=== PATIENT | male | born 1960 | race Caucasian/White ===

== ENCOUNTER 2016-09-12 12:08 | Inpatient (IN) | payer MEDICARE ==
[~2016-09-12] VITALS: Ht 167.6 cm; Wt 55.8 kg
[2016-09-12] VITALS (14 sets, daily range): BP systolic 138–196; BP diastolic 75–109; BMI 19.9
[2016-09-12 12:55] LABS: BASOPHILS 0.4 % (0.0-2.0); EOSINOPHILS 0.4 % (0-7); HEMATOCRIT 23.6 % (42.0-54.0); IMMATURE GRANULOCYTES 0.3 % (0-5); LYMPHOCYTES 18.8 % (15-50); MCH 27.4 pg (26.0-34.0); MCHC 30.1 g/dL (31.0-37.0); MCV 91.1 fL (80.0-100.0); MEAN PLATELET VOLUME 8.6 fL (7.4-10.4); MONOCYTES 15.8 % (2-11); NEUTROPHILS 64.3 % (40-80); RBC 2.59 10x6/uL (4.20-6.10); WBC 6.9 10x3/uL (4.8-10.8)
[2016-09-12 13:04] LABS: HEMOGLOBIN 7.1 g/dL (13.5-17.5); PLATELET COUNT 371 10x3/uL (130-400)
[2016-09-12 13:16] LABS: ALBUMIN 3.7 g/dL (3.4-5.0); ALKALINE PHOSPHATASE 64 U/L (46-116); ALT (SGPT) 17 U/L (10-68); BILIRUBIN - TOTAL 0.18 mg/dL (0.2-1.3); CALC OSMOLALITY 265 mosm/kg (275-300); CALCIUM 8.2 mg/dL (8.5-10.1); CARBON DIOXIDE 22.2 mmol/L (21.0-32.0); CHLORIDE - SERUM 99 mmol/L (98-107); CREATININE - SERUM 0.8 mg/dL (0.6-1.3); GLUCOSE 109 mg/dL (74-106); POTASSIUM - SERUM 3.4 mmol/L (3.5-5.1); PROTEIN - SERUM 8.5 g/dL (6.4-8.2); SODIUM 134 mmol/L (136-145); UREA NITROGEN 4 mg/dL (7-18); eGFR NON AFRICAN AMERICAN > 90 mL/min (90-120)
[2016-09-12 14:03] LABS: INR 1.07 (0.85-1.17); PROTIME 13.8 SECONDS (11.6-15.0)
--- NOTE | 2016-09-12 16:57 | NUR ---
PT ARRIVED TO THE FLOOR FROM ER. ALERT AND CONVERSANT. HAS GLASSES ON. ROOM AIR. NO FAMILY AT THIS TIME. PT DOES NOT KNOW WHAT MEDICATIONS HE IS ON. SAYS HIS SISTER WILL HAVE THAT INFORMATION. C/O BEING COLD.
--- NOTE | 2016-09-12 17:48 | NUR ---
HAVE ATTEMPTED TO LOCATE FAMILY THAT WAS WITH PT IN ER. WHEN HE WAS DELIVERED TO ICU, ER NURSE SAID FAMILY WOULD BE IN WAITING AREA. HAVE LOOKED IN WAITING AREA OF ICU AND IMAGING SEVERAL TIMES AND HAVE BEEN UNABLE TO LOCATE. ATTEMPTED PHONE NUMBER LISTED FOR ANNI MELENDEZ WHO THE PATIENT LIVES WITH, NO ANSWER AT THE NUMBER PROVIDED. NO ABILITY TO LEAVE MESSAGE. PT NOW OFF UNIT TO NUCLEAR MEDICINE.
[2016-09-12 18:25] LABS: APPEARANCE CLEAR (CLEAR); BILIRUBIN NEGATIVE (NEGATIVE); COLOR YELLOW (YELLOW); GLUCOSE NEGATIVE (NEGATIVE); KETONE NEGATIVE (NEGATIVE); LEUKOCYTE ESTERASE NEGATIVE (NEGATIVE); NITRITE NEGATIVE (NEGATIVE); PROTEIN NEGATIVE (NEGATIVE); UROBILINOGEN NORMAL (NORMAL)
--- NOTE | 2016-09-12 19:02 | NUR ---
PT RETURNED TO ROOM VIA WHEELCHAIR FROM NUCLEAR MEDICINE. HAVE SPOKE WITH SISTER KERRI EDWARDS [phone] AND DAUGHTER [place] [phone]. PT LIVES WITH SISTER ANNI [phone]. SON SHANNON YAÑEZ CAN BE REACHED AT [phone]
--- NOTE | 2016-09-12 19:16 | NUR ---
SCD'S PLACED ON PT. EDUCATED ON USE.
--- NOTE | 2016-09-12 19:20 | NUR ---
ASSESSMENT COMPLETED. SEE ASSESSMENT FLOWSHEET. CONSENT SIGNED FOR BLOOD TRANSFUSION. WITNESSED BY DAY SHIFT NURSEMAREK. HARD OF HEARING. ON ROOM AIR. SCATTERED PLACED OF PSORIASIS TYPE LESIONS TO ARMS, ABDOMEN AND LEGS. SCD'S ON BILATERAL LE'S. RT HAND 18G PIV SALINE LOCKED. WILL NEED ANOTHER IV FOR PROTONIX GTT. ORIENTED. ASKIGN MULTIPLE QUESITONS. WILL MONITOR.
--- NOTE | 2016-09-12 20:15 | NUR ---
PROTONIX GTT STARTED TO NEW IV STARTED TO LEFT FOREARM 20G PRESCRIBED AT 8MG/HR. POTASSIUM REPLACEMENT GIVEN PO IN CRANBERRY JUICE. SLOWLY DRINKING IT. DOES NOT LIKE THE TASTE.
[2016-09-12 20:26] LABS: HEMATOCRIT 22.4 % (42.0-54.0)
[2016-09-12 20:27] LABS: HEMOGLOBIN 6.7 g/dL (13.5-17.5)
--- NOTE | 2016-09-12 22:00 | NUR ---
ASSISTED TO STAND UP ON SIDE OF BED TO URINATE. CLEAR, LT YELLOW URINE EMPTIED FROM URINAL. BACK TO BED WITH MINIMAL ASSISTANCE.
--- NOTE | 2016-09-12 22:14 | NUR ---
PAGED DR. SAMANIEGO VIA ANSWERING SERVICE. DANIEL ORITZ APN, RETURNED PAGE. MADE AWARE OF INCREASED B/P. NEW IV PRN MEDS ORDERED FOR B/P.
--- NOTE | 2016-09-12 22:53 | NUR ---
2ND UNIT OF PRBC'S STARTED. INFORMED TO CALL WITH ANY SHORTNESS OF BREATHE, ITCHING OR NOT FEELING WELL. VERBALIZED UNDERSTANDING.
--- NOTE | 2016-09-12 23:00 | NUR ---
IV HYDRALAZINE GIVEN PRSCRIBED FOR SBP >170 MMHG. INFORMED PATIENT OF [facility].
--- NOTE | 2016-09-12 23:15 | NUR ---
SPLIT WATER IN BED FROM HIS CUP AT BEDSIDE. PARTIAL LINENS CHANGED. PULLED UP IN BED AND REPOSITIONED FOR COMFORT. REASSESSMENT COMPLETED. SEE ASSESSMENT FLOWSHEET. 2ND UNIT PF PRBC'S INFUSING. NO REACTION NOTED THUS FAR. WILL MONITOR.
[2016-09-13] VITALS (20 sets, daily range): BP systolic 128–179; BP diastolic 76–109; Ht 167.6 cm; Wt 55.8 kg
--- NOTE | 2016-09-13 01:05 | NUR ---
2ND UNIT OF PRBC'S COMPLETED. SAT UP AND STOOD ON SIDE OF BED TO ASSIST WITH URINATING. 100ML OF CLEAR, YELLOW URINE EMPTIED. WILL MONITOR.
--- NOTE | 2016-09-13 01:45 | NUR ---
LORENA SANCHEZ AT BEDSIDE TO DRAW TIMED H & H AND K LEVEL. WILL MONITOR.
[2016-09-13 02:04] LABS: HEMATOCRIT 28.9 % (42.0-54.0); HEMOGLOBIN 9.2 g/dL (13.5-17.5)
--- NOTE | 2016-09-13 03:45 | NUR ---
AWAKENED EASILY. REASSESSMENT COMPLETED. SEE ASSESSMENT FLOWSHEET. IV ATIVAN GIVEN PER SCHEDULED ORDER TO PREVENT D.T.'S. NO NEW ACUTE CHANGES NOTED. ONLY DISORIENTED TO TIME OF DAY. REORIENTED. C/O OF STINGING SOME TO RT HAND 18G WHEN MED AND SALINE PUSHED. IV SITE WNL. WILL MONITOR.
--- NOTE | 2016-09-13 05:50 | NUR ---
1/2 CUP OF ICE GIVEN FOR C/O DRY MOUTH EVEN AFTER MOUTH SWABS AND MOISTURIZER GIVEN.
[2016-09-13 06:46] LABS: BASOPHILS 0.2 % (0.0-2.0); EOSINOPHILS 0.6 % (0-7); HEMATOCRIT 28.7 % (42.0-54.0); HEMOGLOBIN 9.2 g/dL (13.5-17.5); IMMATURE GRANULOCYTES 0.4 % (0-5); LYMPHOCYTES 20.4 % (15-50); MCH 28.5 pg (26.0-34.0); MCHC 32.1 g/dL (31.0-37.0); MCV 88.9 fL (80.0-100.0); MEAN PLATELET VOLUME 9.6 fL (7.4-10.4); MONOCYTES 16.6 % (2-11); NEUTROPHILS 61.8 % (40-80); PLATELET COUNT 318 10x3/uL (130-400); RBC 3.23 10x6/uL (4.20-6.10); RDW 16.4 % (11.5-14.5); WBC 5.4 10x3/uL (4.8-10.8)
--- NOTE | 2016-09-13 06:53 | NUR ---
WARM BLANKET GIVEN PER REQUEST. ASKING TO CALL FAMILY. STATES HIS SISTER DOES ALL HIS PAPERWORK-ANNI. INFORMED WILL HAVE TO CALL AT THE NURSES' DESK DUE TO LONG DISTANCE NUMBER. WILL TRANSFER THE CALL ONCE WE REACH HER.
[2016-09-13 06:57] LABS: ALBUMIN 3.4 g/dL (3.4-5.0); ALKALINE PHOSPHATASE 62 U/L (46-116); ALT (SGPT) 14 U/L (10-68); BILIRUBIN - TOTAL 1.62 mg/dL (0.2-1.3); CALC OSMOLALITY 273 mosm/kg (275-300); CALCIUM 8.4 mg/dL (8.5-10.1); CARBON DIOXIDE 24.4 mmol/L (21.0-32.0); CHLORIDE - SERUM 103 mmol/L (98-107); CREATININE - SERUM 0.7 mg/dL (0.6-1.3); GLUCOSE 104 mg/dL (74-106); POTASSIUM - SERUM 3.7 mmol/L (3.5-5.1); PROTEIN - SERUM 7.8 g/dL (6.4-8.2); SODIUM 138 mmol/L (136-145); eGFR NON AFRICAN AMERICAN > 90 mL/min (90-120)
[2016-09-13 06:58] LABS: UREA NITROGEN 6 mg/dL (7-18)
--- NOTE | 2016-09-13 08:14 | NUR ---
UP IN BED AT THIS TIME. PT DENEIS ANY NEEDS. ALERT AND ORIENTED. NO ACUATE DISTRESS NOTED. USES URINAL FOR URINATION. REPOSITIONS SELF FREQUENTLY. WILL CONTINUE PLAN OF CARE.
--- NOTE | 2016-09-13 08:38 | NUR ---
Is the patient Alert and Oriented? Yes 0 * How many steps to enter\exit or inside your home? 4 0 * PCP DR. AYOUB IN [place] 0 * Pharmacy [facility] IN [place] 0 * Preadmission Environment Home with Family 0 * ADLs Independent 0 * Equipment None 0 * List name and contact numbers for known caregivers / representatives who currently or will assist patient after discharge: SISTER: ANNI MELENDEZ [phone] SON: TONIA YAÑEZ [phone] DIL: [place] [phone] * Community resources currently utilized None 0 * Additional services required to return to the preadmission environment? No 0 * Can the patient safely return to the preadmission environment? Yes 0 * Has this patient been hospitalized within the prior 30 days at any hospital? No 0 PATIENT IS AWAKE AND ALERT. HE STATES HE IS INDEPENDENT IN HIS ADL'S. HE STATES HE LIVES AT HOME WITH HIS SISTER, ANNI MELENDEZ. SHE WILL BE AVAILABLE TO DRIVE HIM HOME AT DISCHARGE. PATIENT'S PCP IS DR. AYOUB IN [place]. HE GETS HIS MEDS FROM [facility] IN [place]. HE DENIES USE OF ANY DME. HE DENIES EVER HAVING HOME HEALTH CARE. THERE ARE 4 STEPS TO ENTER HIS HOME. PATIENT DENIES ANY DISCHARGE NEEDS AT THIS TIME. HE PLANS TO RETURN HOME WITH HIS SISTER AT DISCHARGE.
--- NOTE | 2016-09-13 10:13 | NUR ---
SITTING UP IN BED AT THIS TIME AWAKE WATCHING TV. DENEIS ANY NEEDS. NO ACUTE DISTRESS NOTED. WILL CONTINUE PLAN OF CARE.
--- NOTE | 2016-09-13 10:37 | NUR ---
Nutrition Follow Up: Pt reported that he was feeling better and his appetite seems to be improving. He said that he likes Ensure and has been drinking it. Pt is eating 55% meal avg on a Regular [facility] Soft diet. I<O. +BM 09/11/16. Wt gain of 3# since admit. Labs noted - Glucose elevated. Meds noted including NS @ 50 ml/hr, Lantus, Dopamine, Humalog, Zofran. Pt with fair po intake at this time. Rec continue current diet. Will continue sending Ensure with meals. RD following.
--- NOTE | 2016-09-13 11:41 | NUR ---
NOTED NEW ORDERS FOR PT TO HAVE EKG AND LR PULLED FOR PT TO GO TO EGD. WILL PLACE ORDERS NOW UNDER DR IVAN ORDERED.
--- NOTE | 2016-09-13 12:14 | NUR ---
PT FAMILY IN ROOM VISITING WITH PT AT THIS TIME. NOTED THEY HAD STATED THAT THE ONLY HOME MEDS PT HAS ARE LISINOPRIL 10MG BID BUT PT HAS NOT BEEN TAKING FOR A LITTLE WHILE. THEY STATED THERE ARE NO OTHER MEDICATIONS WHICH PT TAKES. PT DENIES ANY NEEDS. NO DISTRESS NOTED. WILL CONTINUE PLAN OF CARE.
[2016-09-13] MEDS ORDERED: LISINOPRIL10 MG PO (12:22)
[2016-09-13 12:46] LABS: HEMATOCRIT 30.1 % (42.0-54.0); HEMOGLOBIN 9.6 g/dL (13.5-17.5)
--- NOTE | 2016-09-13 12:57 | NUR ---
H&H INCREASED AT 9.6/30.1. NO ACTIVE BLLEDING NOTED. NO BOWEL MOVEMENT NOTED. NO ACUTE DISTRESS NOTED. WILL CONTINUE PLAN OF CARE.
--- NOTE | 2016-09-13 13:38 | NUR ---
NOTED PT PULSE RATE TO BE RANGING FROM 118-139 AT THIS TIME IN SINUS RHYTHM. CALLED DR SAMANIEGO OFFICE TO NOTIFY, OFFICE STATED SHE IS NOT AT OFFICE. RECIEVED PHYSICIAN CELL NUMBER AT [phone]. WILL CALL DR SAMANIEGO AT THIS TIME FOR ANY NEW ORDERS.
--- NOTE | 2016-09-13 13:40 | NUR ---
SPOKE WITH DR SAMANIEGO ABOUT PT PULSE RATE, NOTED NEW ORDER TO START NORMAL SALINE AT 100ML/HOUR. WILL PLACE ORDERS NOW.
--- NOTE | 2016-09-13 13:53 | NUR ---
TRANSFERRED OFF FLOOR AT THIS TIME FOR EGD PER ORDERS VIA BED ACCOMPANIED BY HOSPITAL STAFF. NO ACUTE DISTRESS NOTED. WILL CONTINUE PLAN OF CARE.
--- NOTE | 2016-09-13 15:14 | NUR ---
RECIEVED REPORT FROM LACHO AND DR PICKETT. NOTED NORMAL EGD. NOTED NEW ORDER FOR CLEAR LIQUID DIET. PULSE RATE REMAINED AT 116 DURING PROCEDURE. NO ACUTE DISTRESS NOTED. PT SISTER AND NIECE UPDATED. DR PICKETT ALSO STATED PT IS OKAY TO BE TRANSFERRED TO FLOOR. WILL CALL DR PRIMARY PHYSICIAN, DR SANCHEZ TO SEE IF OKAY TO TRANSFER PT. WAITING AT THIS TIME TO RECIEVE PT FROM GI LAB.
--- NOTE | 2016-09-13 15:21 | NUR ---
SPOKE WITH DR SAMANIEGO AT THIS TIME. NOTED NEW ORDER FOR PT TO BE TRANSFERRED TO FLOOR. WILL PLACE ORDERS AND NOTIFY PT FAMILY AT THIS TIME.
--- NOTE | 2016-09-13 16:11 | NUR ---
NOTED PT TO GO TO ROOM 2226. WILL CALL REPORT SHORTLY.
--- NOTE | 2016-09-13 16:12 | NUR ---
NOTED PERIPHERAL IV TO LEFT FOREARM TO HAVE A LITTLE PHLEBITIS, RED IN COLOR, FLUSHES WELL. ALL IV MEDS MOVED FROM THIS ACCESS TO RIGHT HAND AND LEFT FOREARM SALINE LOCKED AT THIS TIME. WILL CONTINUE PLAN OF CARE.
--- NOTE | 2016-09-13 16:18 | NUR ---
CALLED REPORT TO RECIEVING NURSE FOR PT TO GO TO ROOM 2226. NOTED ROOM IS STILL DIRTY AT THIS TIME BUT ACCEPTING NURSE WILL NOTIFY THIS NURSE WHEN ROOM IS READY FOR PT TRANSFER. PT FAMILY NOTIFIED AT THIS TIME. NO ACUTE DISTRESS NOTED. WILL CONTINUE PLAN OF CARE.
--- NOTE | 2016-09-13 16:42 | NUR ---
NOTED ROOM FOR PT TO TRANSFER TO, 222, IS CLEAN AND READY FOR PT ARRIVAL. WILL TRANSFER PT SHORTLY.
--- NOTE | 2016-09-13 17:08 | NUR ---
TRANSFERRED TO ROOM 2226 AT THIS TIME VIA WHEELCHAIR. FAMILY IN NEW ROOM WITH PT. NO FURTHER ACTIONS.
--- NOTE | 2016-09-13 17:10 | NUR ---
PATIENT RECEIVED TO FLOOR FROM ICU VIA WHEELCHAIR. RESPIRATIONS EVEN AND UNLABORED. ORIENTED TO ROOM. SIDE RAILS UP X2. BED IN LOW POSITION. FAMILY PRESENT.
--- NOTE | 2016-09-13 17:15 | NUR ---
IV TO RIGHT HAND AND LEFT FOREARM INFILTRATED. BOTH IVs D/C WITH CATH TIPS INTACT. SITES COVERED WITH GAUZE AND BANDAID. NEW 22 GAUGE IV SITED TO LEFT FOREARM X1 ATTEMPT. FLUSHES EASY WITH BRISK BLOOD RETURN PRESENT. SECURED WITH TAPE AND TEGADERM. IVF INFUSING WITHOUT DIFFICULTY
[2016-09-13 18:25] LABS: HEMATOCRIT 30.9 % (42.0-54.0); HEMOGLOBIN 9.8 g/dL (13.5-17.5)
--- NOTE | 2016-09-13 20:00 | NUR ---
ASSESSMENT PER FLOWSHEET. IV PATENT LEFT FOREARM OF NS AT 100CC'S/HR SITE CLEAR. PROTONIX GTT INFUSING AT 10CC'S/HR. PT IS HARD OF HEARING. SR UP X2 CALL LIGHT WITHIN REACH MEDS GIVEN PER MAR.RESTING QUIETLY TALKING ON PHONE.
--- NOTE | 2016-09-13 22:27 | NUR ---
SITTING UPRIGHT IN BED EATING ICE CREAM
--- NOTE | 2016-09-14 | NUR ---
MEDS GIVEN PER MAR.
[2016-09-14 01:00] VITALS: BP 149/77
[2016-09-14 01:04] LABS: HEMATOCRIT 26.1 % (42.0-54.0); HEMOGLOBIN 8.4 g/dL (13.5-17.5)
--- NOTE | 2016-09-14 04:00 | NUR ---
MEDS GIVEN FL MAR.
[2016-09-14 05:00] VITALS: BP 180/93
--- NOTE | 2016-09-14 06:00 | NUR ---
INC URINE ON THE FLOOR COMPLETE BATH WITH LINENS CHANGED.
[2016-09-14 06:13] LABS: BASOPHILS 0.2 % (0.0-2.0); EOSINOPHILS 2.2 % (0-7); HEMOGLOBIN 8.6 g/dL (13.5-17.5); IMMATURE GRANULOCYTES 0.2 % (0-5); LYMPHOCYTES 29.8 % (15-50); MCH 28.1 pg (26.0-34.0); MCHC 31.9 g/dL (31.0-37.0); MCV 88.2 fL (80.0-100.0); MEAN PLATELET VOLUME 9.7 fL (7.4-10.4); NEUTROPHILS 50.6 % (40-80); PLATELET COUNT 264 10x3/uL (130-400); RBC 3.06 10x6/uL (4.20-6.10); RDW 16.5 % (11.5-14.5); WBC 4.6 10x3/uL (4.8-10.8)
[2016-09-14 06:34] LABS: ALBUMIN 2.9 g/dL (3.4-5.0); ALKALINE PHOSPHATASE 58 U/L (46-116); ALT (SGPT) 13 U/L (10-68); CARBON DIOXIDE 22.1 mmol/L (21.0-32.0); CHLORIDE - SERUM 104 mmol/L (98-107); CREATININE - SERUM 0.7 mg/dL (0.6-1.3); GLUCOSE 94 mg/dL (74-106); PROTEIN - SERUM 7.1 g/dL (6.4-8.2); SODIUM 137 mmol/L (136-145); eGFR NON AFRICAN AMERICAN > 90 mL/min (90-120)
[2016-09-14 06:35] LABS: CALC OSMOLALITY 270 mosm/kg (275-300); POTASSIUM - SERUM 3.1 mmol/L (3.5-5.1); UREA NITROGEN 3 mg/dL (7-18)
--- NOTE | 2016-09-14 07:30 | NUR ---
AWAKE ALERT COLOR ADQ SKIN WARM AND DRY RESP EVEN AND UNLABORED AT PRESENT.IV CONT AT 100CC/HR/IVAC AT PRESENT.
[2016-09-14 08:30] VITALS: BP 161/89
--- NOTE | 2016-09-14 09:00 | NUR ---
SLEEPING QUIETLY AT PRESENT N/C AT PRESENT.
[2016-09-14] MEDS ORDERED: PROTONIX40 MG PO (10:46)
--- NOTE | 2016-09-14 10:52 | NUR ---
QUIET IN ROOM AT PRESENT DENIES ANY NEEDS AT PRESENT.
--- NOTE | 2016-09-14 11:21 | NUR ---
DR SAMANIEGO VS NEW ORDERS R/N AT PRESENT.
[2016-09-14 12:03] VITALS: BP 175/92
[2016-09-14 12:26] LABS: HEMATOCRIT 28.2 % (42.0-54.0); HEMOGLOBIN 8.9 g/dL (13.5-17.5)
--- NOTE | 2016-09-14 13:24 | NUR ---
FAMILY AT BEDSIDE WAITING TO TALK TO GI DOCTOR.
--- NOTE | 2016-09-14 15:11 | NUR ---
STILL WAITING TO GO HOME AT PRESENT DRESSED IN CLOTHES.
--- NOTE | 2016-09-14 16:00 | NUR ---
VS NEW ORDERS R/N .
[2016-09-14 16:13] VITALS: BP 166/107
--- NOTE | 2016-09-14 16:15 | NUR ---
IV DCD CATH INTACT SITE CLEAN AND DRY WITHOUT REDDNESS OR EDEMA NOTED AT PRESENT AT PRESENT.DISCHARGE INSTRUCTIONS GONE OVER WITH PT AND SISTER DEMONSTRATES UNDERSTANDING AT PRESENT .
== END 2016-09-14 16:19 | disposition home or self-care (01) | DRG 378 ==
LOC: D.ER 12:08 → D.ICU 14:15 → D.MS 09-13 17:10
PROVIDERS: Emergency Medicine; Internal Medicine Gastroenterology; ADMIT Emergency Medicine
PROC: 0DB68ZX Excision of Stomach, Via Natural or Artificial Opening Endoscopic, Diagnostic (ICD-10-PCS; principal; 2016-09-13 14:00)
DX: K92.1 Melena (principal); D62 Acute posthemorrhagic anemia; F17.203 Nicotine dependence unspecified, with withdrawal; R04.0 Epistaxis; R53.1 Weakness; E87.6 Hypokalemia; R00.0 Tachycardia, unspecified; F10.20 Alcohol dependence, uncomplicated

== ENCOUNTER 2016-09-25 14:59 | Observation (INO) | payer MEDICARE ==
[~2016-09-25] VITALS: Ht 167.6 cm; Wt 57.0 kg
[~2016-09-25 14:59] MED LIST: LISINOPRIL10 MG PO; PROTONIX40 MG PO
[2016-09-25 16:04] LABS: BASOPHILS 0.2 % (0.0-2.0); EOSINOPHILS 0.2 % (0-7); HEMATOCRIT 31.3 % (42.0-54.0); IMMATURE GRANULOCYTES 0.3 % (0-5); LYMPHOCYTES 11.8 % (15-50); MCH 28.2 pg (26.0-34.0); MCHC 31.9 g/dL (31.0-37.0); MCV 88.4 fL (80.0-100.0); MEAN PLATELET VOLUME 10.4 fL (7.4-10.4); MONOCYTES 11.1 % (2-11); NEUTROPHILS 76.4 % (40-80); PLATELET COUNT 187 10x3/uL (130-400); RBC 3.54 10x6/uL (4.20-6.10); RDW 17.5 % (11.5-14.5); WBC 6.4 10x3/uL (4.8-10.8)
[2016-09-25 16:11] LABS: ALBUMIN 3.8 g/dL (3.4-5.0); ALKALINE PHOSPHATASE 77 U/L (46-116); ALT (SGPT) 19 U/L (10-68); BILIRUBIN - TOTAL 0.47 mg/dL (0.2-1.3); CALC OSMOLALITY 269 mosm/kg (275-300); CALCIUM 8.1 mg/dL (8.5-10.1); CARBON DIOXIDE 26.1 mmol/L (21.0-32.0); CHLORIDE - SERUM 98 mmol/L (98-107); CREATININE - SERUM 0.7 mg/dL (0.6-1.3); GLUCOSE 102 mg/dL (74-106); POTASSIUM - SERUM 4.2 mmol/L (3.5-5.1); PROTEIN - SERUM 8.4 g/dL (6.4-8.2); SODIUM 136 mmol/L (136-145); UREA NITROGEN 7 mg/dL (7-18); eGFR NON AFRICAN AMERICAN > 90 mL/min (90-120)
[2016-09-25 20:49] VITALS: BP 147/103; Ht 167.6 cm; Wt 57.0 kg
--- NOTE | 2016-09-25 20:59 | NUR ---
PT ARRIVED WHEEL CHAIR, AWAKE, ALERT, ORIENTED, DENIES PAIN, DENIES ANY ACUTE NEEDS AT THIS TIME. PTS SISTER IS AT BEDSIDE. PT STATES HE HAS NOT HAS HIS LISINOPRIL IN QUITE SOME TIME, UNABLE TO RECALL WHEN LAST DOSE WAS. PT STATES HE DOES NOT HAVE A PRIMARY CARE PHYSICIAN, AND THAT HE JUST COMES HERE WHEN HE NEEDS SOMETHING. I DID PT TEACHING ABOUT HIS MEDICATIONS, HTN, LIFESTYLE CONTRIBUTORS, NECCESSARY LIFESTYLE CHANGES, AND THE NEED TO ESTABLISH WITH A PCP IMMEDIATELY. I EXPLAINED THAT NONCOMPLIANCE WITH MEDS, AND NOT FOLLOWING UP WITH A DR COULD LEAD TO SERIOUS HEALTH COMPLICATIONS. PT AND SISTER BOTH AGREED VERBALLY THAT THEY UNDERSTAND AND WILL FIND A PCP FOR PT SOON THEY CAN. WILL CONTINUE TO MONITOR CLOSELY.
[2016-09-26 03:36] VITALS: BP 151/70
--- NOTE | 2016-09-26 05:51 | NUR ---
PT LYING IN BED, AWAKE, ALERT, ORIENTED, DENIES ANY NEEDS. CONTINUE TO MONITOR CLOSELY.
[2016-09-26 06:22] VITALS: BP 142/86
[2016-09-26 07:05] LABS: HEMATOCRIT 28.8 % (42.0-54.0); HEMOGLOBIN 8.9 g/dL (13.5-17.5); MCH 27.6 pg (26.0-34.0); MCHC 30.9 g/dL (31.0-37.0); MCV 89.2 fL (80.0-100.0); PLATELET COUNT 160 10x3/uL (130-400); RBC 3.23 10x6/uL (4.20-6.10); RDW 17.8 % (11.5-14.5)
[2016-09-26 07:08] LABS: CALCIUM 8.2 mg/dL (8.5-10.1); CARBON DIOXIDE 26.8 mmol/L (21.0-32.0); CHLORIDE - SERUM 98 mmol/L (98-107); CREATININE - SERUM 0.8 mg/dL (0.6-1.3); GLUCOSE 87 mg/dL (74-106); SODIUM 133 mmol/L (136-145); eGFR NON AFRICAN AMERICAN > 90 mL/min (90-120)
[2016-09-26 07:15] LABS: WBC 3.8 10x3/uL (4.8-10.8)
[2016-09-26 07:20] LABS: CALC OSMOLALITY 261 mosm/kg (275-300); POTASSIUM - SERUM 3.3 mmol/L (3.5-5.1); UREA NITROGEN 5 mg/dL (7-18)
--- NOTE | 2016-09-26 07:34 | NUR ---
PT SITTING UP IN BED SISTER AT BEDSIDE KACIE NEEDS WILL CONTINUE TO MONITOR.
[2016-09-26 07:37] LABS: LYMPHOCYTES 42 % (15-50); MONOCYTES 17 % (2-11); NEUTROPHILS 40 % (40-80); PLATELET ESTIMATE NORMAL
[2016-09-26 09:05] VITALS: BP 159/93
[2016-09-26 12:42] VITALS: BP 152/87
--- NOTE | 2016-09-26 13:36 | NUR ---
AMBULATING IN HALLWAY REQUESTING SNACK FOOD. BROUGHT HIM FORTINO CRACKER AND PEANUT BUTTER. DENIES FURTHER NEEDS EXCEPT THAT HE WANTS TO GO HOME. ADVISE DR. DAVILA WILL BE HERE AROUND 4-5 PM
--- NOTE | 2016-09-26 13:55 | NUR ---
REFUSED SCD'S. PATIENT UP AD ABBEY
[2016-09-26 14:43] LABS: HEMATOCRIT 29.6 % (42.0-54.0); HEMOGLOBIN 9.1 g/dL (13.5-17.5)
[2016-09-26 14:58] LABS: APPEARANCE CLEAR (CLEAR); COLOR YELLOW (YELLOW); GLUCOSE NEGATIVE (NEGATIVE); KETONE NEGATIVE (NEGATIVE); LEUKOCYTE ESTERASE TRACE (NEGATIVE); NITRITE NEGATIVE (NEGATIVE); PROTEIN 1+ mg/dL (NEGATIVE); SPECIFIC GRAVITY 1.005 (1.005-1.020)
[2016-09-26 14:59] LABS: BILIRUBIN NEGATIVE (NEGATIVE); UROBILINOGEN NORMAL (NORMAL)
[2016-09-26 15:00] LABS: BACTERIA NONE SEEN /hpf (NONE SEEN); EPITHELIAL CELLS NSEEN /hpf (0-5); RED CELLS - URINE NONE SEEN /hpf (0-5); WHITE CELLS - URINE 0-5 /hpf (0-5)
[2016-09-26 15:13] LABS: % SATURATION 40 % (15-55); IRON 158 ug/dl (35-150); TOTAL IRON BIND CAPACITY 387 ug/dl (260-445); UNSAT IRON BIND CAPACITY 229 ug/dl (150-375)
[2016-09-26 16:28] VITALS: BP 148/93
[2016-09-26 18:46] LABS: HEMATOCRIT 28.4 % (42.0-54.0); HEMOGLOBIN 8.8 g/dL (13.5-17.5)
[2016-09-26 19:53] VITALS: BP 168/98
--- NOTE | 2016-09-26 23:00 | NUR ---
PT RESTING IN BED. WATCHING TV. IVF BANANA BAG INFUSING TO LEFT HAND AT 125ML/HR. NONLABORED RESPIRATIONS ON ROOM AIR. SR PER TELEMETRY. REFUSES SCDS. INITIAL ROUNDS, BP 168/99, SO ADMINISTERED. HYDRALAZINE 10MG SIVP. ALSO PROVIDED SCHEDULED LISINOPRIL. PT ASKING NURSE WHEN HIS BANANA BAG WILL BE COMPLETE. HE THINKS THAT THE DATE ON HIS IV OF 09/26/15, INDICATES THAT IT IS ONLY GOOD FOR ONE DAY, ONE BANANA BAG. INSTRUCED PT THAT BANANA BAG WILL CONTINUE UNTIL ORDERS COME FROM MD TO DISCONTINUE IT. PT IS FIXATED ON THE DATE. WILL MONITOR.
[2016-09-27 00:24] VITALS: BP 137/79
[2016-09-27 04:23] VITALS: BP 160/86
[2016-09-27 06:17] LABS: BASOPHILS 0.5 % (0.0-2.0); EOSINOPHILS 2.2 % (0-7); HEMATOCRIT 28.3 % (42.0-54.0); HEMOGLOBIN 8.8 g/dL (13.5-17.5); IMMATURE GRANULOCYTES 0.2 % (0-5); LYMPHOCYTES 33.7 % (15-50); MCH 27.6 pg (26.0-34.0); MCHC 31.1 g/dL (31.0-37.0); MCV 88.7 fL (80.0-100.0); MEAN PLATELET VOLUME 11.2 fL (7.4-10.4); MONOCYTES 20.2 % (2-11); NEUTROPHILS 43.2 % (40-80); PLATELET COUNT 152 10x3/uL (130-400); RBC 3.19 10x6/uL (4.20-6.10); WBC 4.1 10x3/uL (4.8-10.8)
[2016-09-27 06:34] LABS: ALBUMIN 3.2 g/dL (3.4-5.0); ALKALINE PHOSPHATASE 58 U/L (46-116); ALT (SGPT) 15 U/L (10-68); BILIRUBIN - TOTAL 0.35 mg/dL (0.2-1.3); CALC OSMOLALITY 266 mosm/kg (275-300); CALCIUM 8.5 mg/dL (8.5-10.1); CHLORIDE - SERUM 101 mmol/L (98-107); CREATININE - SERUM 0.6 mg/dL (0.6-1.3); GLUCOSE 95 mg/dL (74-106); POTASSIUM - SERUM 3.8 mmol/L (3.5-5.1); SODIUM 135 mmol/L (136-145); UREA NITROGEN 5 mg/dL (7-18); eGFR NON AFRICAN AMERICAN > 90 mL/min (90-120)
--- NOTE | 2016-09-27 07:27 | NUR ---
PT SITTING UP IN BED DENIES NEEDS AUDI CONT TO MONITOR.
[2016-09-27 07:32] LABS: MAGNESIUM - SERUM 1.8 mg/dL (1.8-2.4)
[2016-09-27 08:49] VITALS: BP 145/81
[2016-09-27 10:19] LABS: FOLATE (FOLIC ACID) - SERUM 11.2 ng/mL (>3.0)
[2016-09-27 12:43] VITALS: BP 145/74
--- NOTE | 2016-09-27 15:03 | NUR ---
PT WAS ORDERED TO HAVE CAROTID DOPPLER FOR SYNCOPE EPISODE PRIOR TO ADMISSION. PT VERY IMPATIENT AND DIDNT WANT TO WAIT FOR THE TEST BECAUSE HIS RIDE WAS HERE AND HE WAS READY TO GO HOME. SAID HE HAD SOMEWHERE TO BE. CALLED DANIEL APONTE SHE SAID PT COULD LEAVE SOON HE WAS FINISHED WITH THE TEST AND THAT HE DID NOT HAVE TO WAIT FOR THE RESULTS THAT THE RESULTS COULD BE FORWARDED TO DR PAYAN. (PT PCP). I CALLED ULTRASOUND SPOKE TO KRYSTEN TWICE TRYING TO SEE IF THERE WAS ANY WAY SHE COULD GET UP HERE SOONER. SHE COULDNT. KRYSTEN JUST GOT UP HERE AND DID PT CAROTID ULTRASOUND. WENT OVER PT DC PAPERWORK AND DC TELE AND PIV WITH CATHETER TIP ITNACT. ASKED PT AGAIN IF HE WOULD PLEASE STAY FOR RESULTS OF CAROTID DOPPLER HE SAID DR DAVILA TOLD HIM HE DIDNT HAVE TO AND HE ISNT "I HAVE SOMEWHERE I NEED TO BE". PT VERBALIZES UNDERSTANDING OF DC PAPERWORK. TOLD KRYSTEN FOSTER TECH THAT RESULTS NEEDED TO BE FORWARDED TO DR GARCIA PAYAN PT PCP. SHE WROTE THIS INFO DOWN. PT REFUSED A WHEELCHAIR AND WALKED OUT WITH HIS FRIEND.
--- NOTE | 2016-10-01 16:47 | EC ---
PATIENT:TNOIA MCCARTNEY DATE OF SERVICE: 09/26/16 SEX: M MEDICAL RECORD: [id number] DATE OF : 60 LOCATION:D.M2 D.213 AGE OF PATIENT: 56 ADMISSION DATE: 09/25/16 REFERRING PHYSICIAN: INTERPRETING PHYSICIAN: BLADE QUIJANO MD ECHOCARDIOGRAM REPORT ECHO CHARGES 4 ECHO COMPLETE CLINICAL DIAGNOSIS: SYNCOPE ECHOCARDIOGRAPHIC MEASUREMENTS (adult normal given) AC root (d.<3.7cm) 3.5 LV Septum d (<1.2 cm> 1.4 Valve Excursion 1.8 LV Septum (systole) 1.6 Left Atria (s.<4.0cm> 3.1 LVPW d(<1.2cm) 1.4 RV (d.<2.3cm) 3.8 LVPW (sytole) 1.7 LV diastole(<5.6CM) 4.8 MV E-F(>70mm/sec) LV systole 2.9 LVOT Diameter 1.4 MV exc.(>10mm) 2.0 Est.ejection fraction (50-75%) Pericardial Effusion N DOPPLER: LVIT A 85.0 E 92.0 LA RVSP 35 LVOT 100 AOP1/2T Asc. Ao 132 RVOT 86 RA PA 122 AV Gradient Peak 7.0 AV Mean 4.41 AV Area 2.0 MV Gradient Peak 4.82 MV Mean 1.80 MV Area COMMENTS: Physician Liaison: Renay GARCIA Fisher:Renay Rucker TAPE# PACS DATE OF SERVICE: 09/26/2016 Echocardiogram FINDINGS: 1. Left ventricular chamber size is within normal limits. Left ventricular systolic function is normal. Overall ejection fraction estimated at 55% to 60%. 2. Left atrium is within normal limits at 3.1 cm. Right atrium and right ventricle chamber sizes are mildly dilated. 3. Valvular structures have normal structure and motion. ECHOCARDIOGRAM REPORT [id number] TONIA MCCARTNEY 4. Doppler interrogation reveals mild mitral regurgitation, mild tricuspid regurgitation, no other valvular insufficiency or stenosis and pulmonary systolic pressure is normal, estimated at 35 mmHg. 5. No evidence of pericardial effusion or left ventricular thrombus. TRANSINT:[id number] Voice Confirmation ID: [id number] DOCUMENT ID: [id number] 10/01/2016 Edited to correct date of service, dm. BLADE QUIJANO MD at 1647 CC: [id number] DICTATION DATE: 09/27/16 1051 AVIATION ENGINEER: 09/27/16 1354 DIS IN 09/27/16 [place] [id number] [place] [id number]
== END 2016-09-27 15:07 | disposition home or self-care (01) ==
LOC: D.ER 14:59 → OBSVTIME 18:31 → D.M2 18:31
PROVIDERS: Emergency Medicine; ADMIT Family Medicine
DX: I10 Essential (primary) hypertension (principal); R55 Syncope and collapse; F17.203 Nicotine dependence unspecified, with withdrawal; D50.0 Iron deficiency anemia secondary to blood loss (chronic); D72.819 Decreased white blood cell count, unspecified

== ENCOUNTER 2017-01-24 15:22 | Inpatient (IN) | payer MEDICARE ==
[~2017-01-24] VITALS: Ht 167.6 cm; Wt 59.0 kg
--- NOTE | ~2017-01-24 | CN ---
PATIENT NAME:TONIA MCCARTNEY MEDICAL RECORD: [id number] : 60 LOCATION:D.MS [place] ADMIT DATE: 01/24/17 ACCOUNT: [id number] CONSULTING PHYSICIAN: WARREN LOPEZ MD REFERRING PHYSICIAN: JOSUÉ BOLAÑOS MD DATE OF CONSULTATION: 01/25/2017 Gastrointestinal Consultation GRADER TENDER: Warren Montero MD REFERRING PHYSICIAN: Josué Bolaños MD HISTORY OF PRESENT ILLNESS: The patient is a 56-year-old white male, was poor historian, but apparently has history of tobacco abuse, alcohol use/abuse, hypertension and arthritic issues, who basically was admitted to the ER with weakness. His only complaint is occasional nose bleed. A chart review looks like he presented in September of this year with the same symptoms and underwent an EGD by Dr. Montero that was normal. He was discharge home, has not been seen since. Currently, he denies any melena, hematochezia, abdominal pain or weight loss. He is taking meloxicam and apparently some [id number] NSAIDS as well. He claims he had a colonoscopy a years ago, but does not know who or when or what it showed. On admission, his hematocrit 23 with normal MCV and a normal plate count. I was asked to see the patient in this regard. PAST MEDICAL HISTORY: As above. PAST SURGICAL HISTORY: Some type of surgery to his arm and foot. ALLERGIES: No drug allergies. HOME MEDICATION: Are all unclear other than a couple of hypertension meds and meloxicam as well as some p.r.n. NSAIDs as well. SOCIAL HISTORY: The patient is a smoker and drinks at least 6 beers a day. REVIEW OF SYSTEMS: Noncontributory per HPI. PHYSICAL EXAMINATION: GENERAL: Reveals a middle-aged while male, in no acute distress. VITAL SIGNS: Stable. Afebrile. CHEST: Clear. HEART: Regular rate and rhythm. ABDOMEN: Soft, nontender. EXTREMITIES: No edema. LABORATORY DATA: Reveals a white count of 5,000, hematocrit 24 on admission, now 30 after taking some blood, MCV of 80, platelet count of 440,000. Electrolytes normal. BUN is 7, creatinine is 0.9. Liver enzymes are unremarkable. Albumin is 3.4. INR is 1.05. IMPRESSION: CONSULT REPORT [id number] BIB,TONIA 1. Recurrent anemia of unclear etiology, rule out NSAIDs induced gastropathy or colopathy, non-gastrointestinal causes, bleeding from his nose bleed, etc. 2. History of alcohol and tobacco use/abuse. RECOMMENDATION: 1. I am going to check some routine anemia labs such as iron studies, B12, folate, retic count, haptoglobin, etc. I am also going to check a stool Guaic. 2. Encourage avoiding all of NSAIDs including meloxicam. 3. Outpatient colonoscopy in few weeks. 4. Depending in all of the above, he might need a hematology workup. 5. Okay for discharge planning by me. TRANSINT:[id number] Voice Confirmation ID: [id number] DOCUMENT ID: [id number] WARREN LOPEZ MD CC: WARREN MONTERO MD and JOSUÉ BOLAÑOS MD [id number] DICTATION DATE: 01/25/17 1233 CHILDCARE DIRECTOR: 01/26/17 1740 DIS IN 01/26/17 [facility] [address] [place] [address]
[2017-01-24 18:14] LABS: BASOPHILS 0.7 % (0-2); EOSINOPHILS 1.9 % (0-7); HEMATOCRIT 24.1 % (42.0-54.0); IMMATURE GRANULOCYTES 0.2 % (0-5); LYMPHOCYTES 22.6 % (15-50); MCH 23.7 pg (26.0-34.0); MCHC 29.5 g/dL (31.0-37.0); MCV 80.6 fL (80.0-100.0); MEAN PLATELET VOLUME 10.1 fL (7.4-10.4); NEUTROPHILS 59.6 % (40-80); RBC 2.99 10x6/uL (4.20-6.10); RDW 20.7 % (11.5-14.5); WBC 5.9 10x3/uL (4.8-10.8)
[2017-01-24 18:41] LABS: HEMOGLOBIN 7.1 g/dL (13.5-17.5); PLATELET COUNT 440 10x3/uL (130-400)
[2017-01-24 19:34] LABS: INR 1.05 (0.85-1.17); PROTIME 13.6 SECONDS (11.6-15.0)
[2017-01-24 19:35] LABS: APTT 30.8 SECONDS (22.8-39.4)
[2017-01-24 20:05] LABS: ALBUMIN 3.9 g/dL (3.4-5.0); ALKALINE PHOSPHATASE 68 U/L (46-116); ALT (SGPT) 20 U/L (10-68); BILIRUBIN - TOTAL 0.34 mg/dL (0.2-1.3); CALC OSMOLALITY 239 mosm/kg (275-300); CALCIUM 9.3 mg/dL (8.5-10.1); CARBON DIOXIDE 21.8 mmol/L (21.0-32.0); CHLORIDE - SERUM 86 mmol/L (98-107); CREATININE - SERUM 0.8 mg/dL (0.6-1.3); GLUCOSE 93 mg/dL (74-106); POTASSIUM - SERUM 4.6 mmol/L (3.5-5.1); PROTEIN - SERUM 8.5 g/dL (6.4-8.2); UREA NITROGEN 6 mg/dL (7-18); eGFR NON AFRICAN AMERICAN > 90 mL/min (90-120)
[2017-01-24 20:10] LABS: SODIUM 120 mmol/L (136-145)
[2017-01-24 23:44] VITALS: BP 127/59; BMI 21.0
[2017-01-25 05:09] VITALS: BP 140/80
--- NOTE | 2017-01-25 07:25 | NUR ---
AWAKE AND ALERT AT THIS TIME. ASSESSMENT PERORMED AT THIS TIME. HOME MEDICATIONS TAKEN FROM BEDSIDE, PLACED A LIST IN THE COMPUTER AND INVENTORIED AND SENT TO PHARMACY IN A SEALED ENVELOPE. DENIES PAIN AT THIS TIME. PT REMAINS NPO EXCEPT FOR A FEW ICE CHIPS. CALL LIGHT IN REACH, WILL CONTINUE WITH PLAN OF CARE.
[2017-01-25 08:30] LABS: MCH 25.7 pg (26.0-34.0); MCHC 30.8 g/dL (31.0-37.0); RDW 18.8 % (11.5-14.5)
[2017-01-25] MEDS ORDERED: MOBIC7.5 MG PO (08:34)
[2017-01-25] MEDS ORDERED: LISINOPRIL-HCTZ1 TA2 PO (08:34)
[2017-01-25] MEDS ORDERED: CYCLOBENZAPRINE5 MG PO (08:35)
[2017-01-25] MEDS ORDERED: ULTRAM50 MG PO (08:35)
[2017-01-25 08:36] LABS: HEMATOCRIT 30.5 % (42.0-54.0); HEMOGLOBIN 9.4 g/dL (13.5-17.5); MCV 83.3 fL (80.0-100.0); PLATELET COUNT 335 10x3/uL (130-400); RBC 3.66 10x6/uL (4.20-6.10); WBC 3.4 10x3/uL (4.8-10.8)
[2017-01-25] MEDS ORDERED: GLYCOLAX527 GM PO (08:36)
[2017-01-25 08:46] LABS: ALBUMIN 3.4 g/dL (3.4-5.0); ALKALINE PHOSPHATASE 63 U/L (46-116); ALT (SGPT) 17 U/L (10-68); BILIRUBIN - TOTAL 1.64 mg/dL (0.2-1.3); CALC OSMOLALITY 255 mosm/kg (275-300); CALCIUM 8.5 mg/dL (8.5-10.1); CARBON DIOXIDE 24.9 mmol/L (21.0-32.0); CHLORIDE - SERUM 96 mmol/L (98-107); CREATININE - SERUM 0.9 mg/dL (0.6-1.3); GLUCOSE 87 mg/dL (74-106); PROTEIN - SERUM 7.7 g/dL (6.4-8.2); SODIUM 129 mmol/L (136-145); UREA NITROGEN 7 mg/dL (7-18); eGFR NON AFRICAN AMERICAN > 90 mL/min (90-120)
[2017-01-25 08:47] LABS: POTASSIUM - SERUM 3.9 mmol/L (3.5-5.1)
[2017-01-25 09:14] VITALS: BP 157/76
--- NOTE | 2017-01-25 09:15 | NUR ---
PROVIDED PT WITH A FEW ICE CHIPS AT THIS TIME. DENIES PAIN OR NEEDS CURRENTLY. CALL LIGHT IN REACH, WILL CONTINUE WITH PLAN OF CARE.
[2017-01-25 09:16] LABS: EOSINOPHILS 1 % (0-7); LYMPHOCYTES 44 % (15-50); MONOCYTES 7 % (2-11); NEUTROPHILS 48 % (40-80); PLATELET ESTIMATE NORMAL
[2017-01-25 10:05] VITALS: Ht 167.6 cm; Wt 59.0 kg
--- NOTE | 2017-01-25 11:30 | NUR ---
SLEEPING AT THIS TIME WITH RESPIRATIONS EVEN AND NON LABORED. CALL LIGHT IN REACH AND DOOR OPEN. WILL CONTINUE WITH PLAN OF CARE.
[2017-01-25 12:20] VITALS: BP 70/46
[2017-01-25 12:46] LABS: BASOPHILS 1.2 % (0-2)
[2017-01-25 12:50] LABS: % SATURATION 93 % (15-55); IRON 401 ug/dl (35-150); TOTAL IRON BIND CAPACITY 430 ug/dl (260-445); UNSAT IRON BIND CAPACITY 29 ug/dl (150-375)
[2017-01-25 13:04] LABS: BILIRUBIN - DIRECT 0.22 mg/dL (0.00-0.30); FERRITIN 34 ng/mL (3-244); LDH 247 U/L (85-227)
[2017-01-25 15:58] VITALS: BP 168/77
--- NOTE | 2017-01-25 19:20 | NUR ---
LYING IN BED TALKING WITH FAMILY, ASSESSMENT COMPLETED, NO ACUTE DISTRESS NOTED, DENIES PAIN OR NEEDS AT THIS TIME, SR'S UP, CL IN REACH, WILL MONITOR
--- NOTE | 2017-01-25 21:26 | NUR ---
WATCHING TV AND EATING SNACK, DENIES NEEDS OR DISTRESS, FALL PRECAUTIONS IN PLACE, CL IN REACH
[2017-01-25 23:14] VITALS: BP 160/82
[2017-01-26 04:00] VITALS: BP 162/813
[2017-01-26 07:16] LABS: BASOPHILS 1.2 % (0-2); EOSINOPHILS 2.9 % (0-7); HEMATOCRIT 28.5 % (42.0-54.0); HEMOGLOBIN 8.6 g/dL (13.5-17.5); IMMATURE GRANULOCYTES 0.6 % (0-5); MCH 25.4 pg (26.0-34.0); MCHC 30.2 g/dL (31.0-37.0); MCV 84.1 fL (80.0-100.0); MEAN PLATELET VOLUME 10.6 fL (7.4-10.4); MONOCYTES 22.4 % (2-11); NEUTROPHILS 37.9 % (40-80); PLATELET COUNT 333 10x3/uL (130-400); RBC 3.39 10x6/uL (4.20-6.10); RDW 19.3 % (11.5-14.5); WBC 4.8 10x3/uL (4.8-10.8)
[2017-01-26 07:46] LABS: ALKALINE PHOSPHATASE 64 U/L (46-116); ALT (SGPT) 16 U/L (10-68); AMYLASE - SERUM 65 U/L (25-115); CALC OSMOLALITY 260 mosm/kg (275-300); CALCIUM 8.4 mg/dL (8.5-10.1); CARBON DIOXIDE 23.7 mmol/L (21.0-32.0); CHLORIDE - SERUM 98 mmol/L (98-107); CREATININE - SERUM 0.7 mg/dL (0.6-1.3); GLUCOSE 92 mg/dL (74-106); LIPASE 200 U/L (73-393); MAGNESIUM - SERUM 1.7 mg/dL (1.8-2.4); PHOSPHOROUS 3.5 mg/dL (2.5-4.9); PRO BNP 1193 pg/mL (0-125); PROTEIN - SERUM 6.9 g/dL (6.4-8.2); SODIUM 131 mmol/L (136-145); THYROID STIMULATING HORMONE 1.13 uIU/mL (0.36-3.74); UREA NITROGEN 6 mg/dL (7-18); eGFR NON AFRICAN AMERICAN > 90 mL/min (90-120)
--- NOTE | 2017-01-26 07:48 | NUR ---
SCHEDULED MEDICATIONS ADMINISTERED AT THIS TIME AND ELECTROLYTE PROTOCOL INITIATED FOR A POTASSIUM OF 3.2 AT THIS TIME. ASSESSMENT PERFORMED PER FLOWSHEET. PT HOPEFUL FOR A D/C HOME TODAY. CALL LIGHT IN REACH, DENIES NEEDS AT THIS TIME. WILL CONTINUE WITH PLAN OF CARE.
[2017-01-26 07:52] LABS: POTASSIUM - SERUM 3.2 mmol/L (3.5-5.1)
[2017-01-26 09:35] VITALS: BP 156/86
--- NOTE | 2017-01-26 09:35 | NUR ---
PRN ZOFRAN 4MG ODT ADMINISTERED FOR UPSET STOMACH AT THIS TIME. DENIES FURTHER NEEDS. WILL CONTINUE WITH PLAN OF CARE.
--- NOTE | 2017-01-26 12:00 | NUR ---
AWAKE AND ALERT IN BED AT THIS TIME. DENIES NEEDS AT THIS TIME. CALL LIGHT IN REACH, WILL CONTINUE WITH PLAN OF CARE.
[2017-01-26] MEDS ORDERED: NICODERM C1 PATCH .1 TRANSDERM (13:58)
[2017-01-26] MEDS ORDERED: COMBIVENT RESPIM4 GM INH (13:58)
[2017-01-26] MEDS ORDERED: THERAGRAN M [BK1 TAB PO (13:58)
[2017-01-26] MEDS ORDERED: PRINIVIL10 MG PO (14:00)
--- NOTE | 2017-01-26 16:45 | NUR ---
DISCHARGE INSTRUCTIONS REVIEWED WITH PT EXTENSIVELY AT THIS TIME. IV TO LEFT AC D/C WITH CATH TIP INTACT. DENIES QUESTIONS OR CONCERNS. WILL CONTINUE WITH PLAN OF CARE.
--- NOTE | 2017-01-26 17:08 | HP ---
PATIENT: TONIA MCCARTNEY MEDICAL RECORD: [id number] ACCOUNT: [id number] LOCATION:D.MS Ward5 : 60 ADMISSION DATE: 01/24/17 HISTORY AND PHYSICAL EXAMINATION Medical Wind Tunnel Technician Admission HISTORY OF PRESENT ILLNESS: This 56-year-old gentleman from another [facility] presented to the Emergency Room for evaluation of generalized shortness of breath and fatigue. He states that he was at home and not able to get as much of his breathing. Evidently, he has had 2 GI bleeds over the last year and had an EGD done earlier in the year. He has been transfused several times in the past. He came into the Emergency Room, was found to be anemic and received 2 units of packed red blood cells that stabilized. He is presently resting comfortably, in no acute distress. PAST MEDICAL HISTORY: Significant for, in the previous year, epistaxis and hemoptysis. He has not had any in the recent week, though. He has a history of hypertension, GERD, alcohol abuse, nicotine dependence and difficulty hearing. PAST SURGICAL HISTORY: He has had surgery on his foot in the past and extremity. SOCIAL HISTORY: The patient does smoke at least a half pack per day, does drink alcohol on a daily basis with a 6-12 beers. REVIEW OF SYSTEMS: Indicates no fever or chills. He has had generalized weakness, nonproductive cough, increasing dizziness. His allergies and meds are listed on the chart. The patient has continued to take his Protonix according to the patient. PHYSICAL EXAMINATION: VITAL SIGNS: As below. GENERAL: He is a well-developed, pale 56-year-old white male, in no acute distress. HEENT: Pupils equal, round and reactive to light. Extraocular movements are intact. Oral cavity and oropharynx otherwise clear. NECK: No cervical or pharyngeal adenopathy. No nuchal rigidity. LUNGS: Coarse breath sounds heard bilaterally. HEART: Regular rate and rhythm with a I/ systolic ejection murmur. ABDOMEN: Soft. Mild distention. No hepatosplenomegaly, no masses. EXTREMITIES: Clubbing is noted. NEUROLOGIC: He moves all 4 extremities. ASSESSMENT: 1. Anemia. 2. Shortness of breath. 3. History of peptic ulcer disease. 4. Alcohol abuse. 5. Nicotine dependence. 6. The patient will have a transfusion to be obtained. 7. Check laboratory. 8. Hem/onc evaluation. 9. The patient has not had any melena, but has already been screened by GI. HISTORY AND PHYSICAL [id number] BIBTONIA TRANSINT:[id number] Voice Confirmation ID: [id number] DOCUMENT ID: [id number] GARCIA ALANIS MD at 1708 CC: [id number] DICTATION DATE: 01/25/17 1431 TAPPER SHANK: 01/25/17 1645 ADM IN [place] [id number] [place] [id number]
[2017-01-28 08:19] LABS: FOLATE (FOLIC ACID) - SERUM 10.1 ng/mL (>3.0)
== END 2017-01-26 17:10 | disposition home or self-care (01) | DRG 812 ==
LOC: OBSVTIME → D.ER 15:22 → D.OPS 15:22 → D.MS 20:05 → OBSVTIME 20:05 → D.ER 20:05 → D.MS 01-25 11:33
PROVIDERS: Emergency Medicine; Internal Medicine Gastroenterology; Internal Medicine Hematology & Oncology; Nurse Practitioner Acute Care; ADMIT Family Medicine
DX: D64.9 Anemia, unspecified (principal); F17.203 Nicotine dependence unspecified, with withdrawal; R53.1 Weakness; E87.6 Hypokalemia; R00.0 Tachycardia, unspecified; I16.0 Hypertensive urgency; K21.9 Gastro-esophageal reflux disease without esophagitis; F10.10 Alcohol abuse, uncomplicated; Z87.11 Personal history of peptic ulcer disease

== ENCOUNTER 2017-08-26 10:49 | Inpatient (IN) | payer MEDICARE ==
[~2017-08-26] VITALS: Ht 167.6 cm; Wt 70.3 kg
[~2017-08-26 10:49] MED LIST changes: +COMBIVENT RESPIM4 GM INH; +CYCLOBENZAPRINE5 MG PO; +GLYCOLAX527 GM PO; +LISINOPRIL-HCTZ1 TA2 PO; +MOBIC7.5 MG PO; +NICODERM C1 PATCH .1 TRANSDERM; +PRINIVIL10 MG PO; +THERAGRAN M [BK1 TAB PO; +ULTRAM50 MG PO
[2017-08-26 11:34] LABS: ALBUMIN 3.3 g/dL (3.4-5.0); ALKALINE PHOSPHATASE 66 U/L (46-116); ALT (SGPT) 11 U/L (10-68); CALC OSMOLALITY 265 mosm/kg (275-300); CALCIUM 8.8 mg/dL (8.5-10.1); CARBON DIOXIDE 23.6 mmol/L (21.0-32.0); CHLORIDE - SERUM 99 mmol/L (98-107); CREATININE - SERUM 0.9 mg/dL (0.6-1.3); GLUCOSE 103 mg/dL (74-106); POTASSIUM - SERUM 4.1 mmol/L (3.5-5.1); PROTEIN - SERUM 7.6 g/dL (6.4-8.2); SODIUM 134 mmol/L (136-145); UREA NITROGEN 8 mg/dL (7-18); eGFR NON AFRICAN AMERICAN > 90 mL/min (90-120)
[2017-08-26 11:38] LABS: MCH 24.4 pg (26.0-34.0); MCHC 29.9 g/dL (31.0-37.0); MCV 81.8 fL (80.0-100.0); MEAN PLATELET VOLUME 11.1 fL (7.4-10.4); RBC 2.25 10x6/uL (4.20-6.10); WBC 6.5 10x3/uL (4.8-10.8)
[2017-08-26 11:39] LABS: HEMOGLOBIN 5.5 g/dL (13.5-17.5)
[2017-08-26 11:40] LABS: HEMATOCRIT 18.4 % (42.0-54.0); PLATELET COUNT 244 10x3/uL (130-400)
[2017-08-26 11:56] LABS: APTT 32.3 SECONDS (22.8-39.4); INR 1.24 (0.85-1.17); PROTIME 15.2 SECONDS (11.6-15.0)
[2017-08-26 14:18] LABS: APPEARANCE CLEAR (CLEAR); BILIRUBIN NEGATIVE (NEGATIVE); COLOR YELLOW (YELLOW); GLUCOSE NEGATIVE (NEGATIVE); KETONE NEGATIVE (NEGATIVE); NITRITE NEGATIVE (NEGATIVE); PROTEIN NEGATIVE (NEGATIVE); SPECIFIC GRAVITY 1.005 (1.005-1.020); UROBILINOGEN NORMAL (NORMAL)
[2017-08-26 17:39] LABS: % SATURATION 3 % (15-55); IRON 14 ug/dl (35-150); TOTAL IRON BIND CAPACITY 442 ug/dl (260-445); UNSAT IRON BIND CAPACITY 428 ug/dl (150-375)
[2017-08-26 18:36] VITALS: BP 161/93; BMI 25.0
[2017-08-26 20:00] VITALS: BP 180/99
[2017-08-27 04:00] VITALS: BP 152/95
[2017-08-27 06:52] LABS: MCH 25.2 pg (26.0-34.0); MCHC 30.2 g/dL (31.0-37.0); MCV 83.3 fL (80.0-100.0); MEAN PLATELET VOLUME 11.8 fL (7.4-10.4); PLATELET COUNT 222 10x3/uL (130-400); RDW 17.3 % (11.5-14.5); WBC 6.5 10x3/uL (4.8-10.8)
[2017-08-27 07:20] LABS: RBC 2.82 10x6/uL (4.20-6.10)
[2017-08-27 07:21] LABS: ALBUMIN 2.9 g/dL (3.4-5.0); ALKALINE PHOSPHATASE 58 U/L (46-116); ALT (SGPT) 11 U/L (10-68); CALC OSMOLALITY 267 mosm/kg (275-300); CALCIUM 7.9 mg/dL (8.5-10.1); CARBON DIOXIDE 20.4 mmol/L (21.0-32.0); CHLORIDE - SERUM 103 mmol/L (98-107); CREATININE - SERUM 0.7 mg/dL (0.6-1.3); GLUCOSE 91 mg/dL (74-106); HEMATOCRIT 23.5 % (42.0-54.0); HEMOGLOBIN 7.1 g/dL (13.5-17.5); POTASSIUM - SERUM 3.5 mmol/L (3.5-5.1); PROTEIN - SERUM 6.7 g/dL (6.4-8.2); SODIUM 135 mmol/L (136-145); UREA NITROGEN 6 mg/dL (7-18); eGFR NON AFRICAN AMERICAN > 90 mL/min (90-120)
[2017-08-27 08:26] VITALS: BP 159/90
[2017-08-27 08:36] LABS: EOSINOPHILS 2 % (0-7); LYMPHOCYTES 17 % (15-50); MONOCYTES 16 % (2-11); NEUTROPHILS 63 % (40-80)
[2017-08-27 08:37] LABS: ACANTHOCYTES OCC; CRENATED CELLS 1+; ELLIPTOCYTES OCC; HYPER SEGMENTED NEUTROPHILS OCC; PLATELET ESTIMATE NORMAL; POIKILOCYTOSIS OCC; ROULEAUX OCC; SMUDGE CELLS OCC
[2017-08-27 14:55] VITALS: BMI 25.0
[2017-08-27 16:05] VITALS: BP 139/97
[2017-08-27 18:11] VITALS: Ht 167.6 cm; Wt 70.3 kg
[2017-08-27 22:57] VITALS: BP 140/77
[2017-08-28 02:03] VITALS: BP 147/88
[2017-08-28 05:26] LABS: MCH 25.8 pg (26.0-34.0); MCHC 31.1 g/dL (31.0-37.0); MCV 83.1 fL (80.0-100.0); MEAN PLATELET VOLUME 11.6 fL (7.4-10.4); PLATELET COUNT 229 10x3/uL (130-400); RDW 17.4 % (11.5-14.5); WBC 7.2 10x3/uL (4.8-10.8)
[2017-08-28 05:34] LABS: HEMATOCRIT 29.6 % (42.0-54.0); HEMOGLOBIN 9.2 g/dL (13.5-17.5); RBC 3.56 10x6/uL (4.20-6.10)
[2017-08-28 05:48] LABS: ALBUMIN 2.7 g/dL (3.4-5.0); ALKALINE PHOSPHATASE 55 U/L (46-116); ALT (SGPT) 10 U/L (10-68); CALC OSMOLALITY 267 mosm/kg (275-300); CALCIUM 7.7 mg/dL (8.5-10.1); CARBON DIOXIDE 19.1 mmol/L (21.0-32.0); CHLORIDE - SERUM 103 mmol/L (98-107); CREATININE - SERUM 0.7 mg/dL (0.6-1.3); GLUCOSE 96 mg/dL (74-106); POTASSIUM - SERUM 3.1 mmol/L (3.5-5.1); PROTEIN - SERUM 6.5 g/dL (6.4-8.2); SODIUM 135 mmol/L (136-145); UREA NITROGEN 6 mg/dL (7-18); eGFR NON AFRICAN AMERICAN > 90 mL/min (90-120)
[2017-08-28 06:03] VITALS: BP 147/88
[2017-08-28 06:32] LABS: BASOPHILS 1 % (0-2); EOSINOPHILS 4 % (0-7); LYMPHOCYTES 13 % (15-50); MONOCYTES 18 % (2-11); NEUTROPHILS 62 % (40-80)
[2017-08-28 06:33] LABS: ANISOCYTOSIS OCC; CRENATED CELLS OCC; ELLIPTOCYTES OCC; PLATELET ESTIMATE NORMAL; POIKILOCYTOSIS OCC
[2017-08-28 06:35] LABS: ROULEAUX OCC
[2017-08-28 08:21] LABS: FOLATE (FOLIC ACID) - SERUM 16.8 ng/mL (>3.0)
[2017-08-28 10:42] VITALS: BP 148/83
[2017-08-28 11:00] VITALS: BP 150/85
[2017-08-28] MEDS ORDERED: CARAFATE1 G/10 ML PO (12:34)
[2017-08-28] MEDS ORDERED: PROTONIX40 MG PO (12:35)
[2017-08-28 14:28] LABS: HEPATITIS C ANTIBODY >11.0 (0.0-0.9)
[2017-08-28 15:27] LABS: SPE - A/G RATIO 0.9 (0.7-1.7); SPE - ALBUMIN 3.4 g/dL (2.9-4.4); SPE - ALPHA-1 GLOBULIN 0.4 g/dL (0.0-0.4); SPE - ALPHA-2 GLOBULIN 0.9 g/dL (0.4-1.0); SPE - BETA GLOBULIN 0.9 g/dL (0.7-1.3); SPE - GAMMA GLOBULIN 1.6 g/dL (0.4-1.8); SPE - M-SPIKE 0.4 g/dL (Not Observed); SPE - TOTAL PROTEIN 7.2 g/dL (6.0-8.5)
== END 2017-08-28 14:22 | disposition home or self-care (01) | DRG 811 ==
LOC: D.ER 10:49 → D.MS 14:35
PROVIDERS: Emergency Medicine; Family Medicine; Internal Medicine Gastroenterology; Internal Medicine Hematology & Oncology
PROC: 0DB68ZX Excision of Stomach, Via Natural or Artificial Opening Endoscopic, Diagnostic (ICD-10-PCS; principal; 2017-08-27 17:15)
DX: D62 Acute posthemorrhagic anemia (principal); K25.4 Chronic or unspecified gastric ulcer with hemorrhage; F17.213 Nicotine dependence, cigarettes, with withdrawal; E87.1 Hypo-osmolality and hyponatremia; I16.0 Hypertensive urgency; F10.20 Alcohol dependence, uncomplicated; E87.6 Hypokalemia; K31.819 Angiodysplasia of stomach and duodenum without bleeding

== ENCOUNTER → 2018-03-18 10:24 | Outpatient (CLI) | payer MEDICARE ==
[2017-08-27 18:11] VITALS: BMI 25.0
--- NOTE | ~2018-03-18 | EC ---
PATIENT:TONIA MCCARTNEY DATE OF SERVICE: 03/18/18 SEX: M MEDICAL RECORD: [id number] DATE OF : 60 [facility] AGE OF PATIENT: 57 ADMISSION DATE: 03/18/18 REFERRING PHYSICIAN: INTERPRETING PHYSICIAN: WILLARD SHIRLEY MD ECHOCARDIOGRAM REPORT ECHO CHARGES 4 ECHO COMPLETE Date: 03/18 CLINICAL DIAGNOSIS: CP/ABNORMAL EKG/COPD ECHOCARDIOGRAPHIC MEASUREMENTS (adult normal given) AC root (d.<3.7cm) 3.3 cm LV Septum d (<1.2 cm> 1.2 cm Valve Excursion 2.1 cm LV Septum (systole) 2.0 cm Left Atria (s.<4.0cm> 3.6 cm LVPW d(<1.2cm) 1.3 cm RV (d.<2.3cm) 2.0 cm LVPW (sytole) 1.7 cm LV diastole(<5.6CM) 5.0 cm MV E-F(>70mm/sec) cm LV systole 2.9 cm LVOT Diameter 2.1 cm MV exc.(>10mm) cm Est.ejection fraction (50-75%) % DOPPLER: LVIT cm/sec A 68.0 cm/sec E 52.0 cm/sec LA cm/sec RVSP 35.4 mmHg LVOT 121 cm/sec AOP1/2T m/s Asc. Ao 147 cm/sec RVOT 77.0 cm/sec RA cm/sec PA 88.0 cm/sec AV Gradient Peak 8.7 mmHg AV Mean 3.4 mmHg AV Area 2.4 cm MV Gradient Peak 2.4 mmHg MV Mean 1.0 mmHg MV Area cm COMMENTS: Director Of Perioperative Services: Crystal SANFORDOE Physician Gynecologist: 4 Dr. Shirley TAPE# PACS Pericardial Effusion N DATE OF SERVICE: PROCEDURE: Transthoracic echocardiogram. FINDINGS: 1. The left ventricle shows mild concentric left ventricular hypertrophy. Inflow characteristics consistent with diastolic dysfunction with ejection fraction of 55% to 60%. 2. The left atrium is normal. 3. The aortic valve is normal. ECHOCARDIOGRAM REPORT [id number] TONIA MCCARTNEY 4. The mitral valve is normal. 5. The tricuspid valve has mild to moderate tricuspid regurgitation with RVSP of 35 mmHg. 6. The right ventricle is normal. 7. The right atrium is normal. CONCLUSIONS: The patient has evidence of hypertensive heart disease. Otherwise, a normal echocardiogram for stated age. TRANSINT:[id number] Voice Confirmation ID: [id number] DOCUMENT ID: [id number] WILLARD SHIRLEY MD at 1458 CC: [id number] DICTATION DATE: 03/20/18828 HEAD OF ENGLISH: 03/20/18 1035 DEP CLI 03/18/18 [address] [place] [address]
[~2018-03-18 10:24] MED LIST changes: +BLOOD PRESSURE; +CARAFATE1 G/10 ML PO; +CILOSTAZOL50 MG PO; +MIRALAX17 GM PO; +PLAVIX75 MG PO; +TYLENOL W/CODEI1 TAB PO
== END | disposition home or self-care (01) ==
LOC: D.US 10:00
DX: I73.9 Peripheral vascular disease, unspecified (principal); R07.2 Precordial pain; J44.9 Chronic obstructive pulmonary disease, unspecified; R94.31 Abnormal electrocardiogram [ECG] [EKG]; K21.9 Gastro-esophageal reflux disease without esophagitis; R07.9 Chest pain, unspecified; I83.11 Varicose veins of right lower extremity with inflammation; I83.12 Varicose veins of left lower extremity with inflammation; R09.89 Other specified symptoms and signs involving the circulatory and respiratory systems

== ENCOUNTER 2018-04-01 22:06 | Emergency (ER) | payer MEDICARE ==
[~2018-04-01] VITALS: Ht 167.6 cm; Wt 57.3 kg
[~2018-04-01 22:06] MED LIST changes: -BLOOD PRESSURE; -CILOSTAZOL50 MG PO; -MIRALAX17 GM PO; -PLAVIX75 MG PO; -TYLENOL W/CODEI1 TAB PO
[2018-04-01 22:36] VITALS: Ht 167.6 cm; Wt 57.3 kg
[2018-04-01] MEDS ORDERED: CILOSTAZOL50 MG PO (22:38)
[2018-04-01] MEDS ORDERED: PLAVIX75 MG PO (22:38)
[2018-04-01] MEDS ORDERED: MIRALAX17 GM PO (22:38)
[2018-04-01] MEDS ORDERED: CYCLOBENZAPRINE5 MG PO (22:38)
[2018-04-01] MEDS ORDERED: TYLENOL W/CODEI1 TAB PO (23:25)
[2018-04-02 00:02] VITALS: BP 130/78
[2018-04-02] MEDS ORDERED: BLOOD PRESSURE (03:48)
== END 2018-04-01 23:48 | disposition home or self-care (01) ==
LOC: D.ER 22:06
DX: I73.9 Peripheral vascular disease, unspecified (principal); M79.605 Pain in left leg; M79.604 Pain in right leg; I10 Essential (primary) hypertension; F17.200 Nicotine dependence, unspecified, uncomplicated

== ENCOUNTER 2018-04-02 00:48 | Inpatient (IN) | payer MEDICARE ==
[~2018-04-02] VITALS: Ht 167.6 cm; Wt 56.6 kg
[~2018-04-02 00:48] MED LIST changes: +CILOSTAZOL50 MG PO; +MIRALAX17 GM PO; +PLAVIX75 MG PO; +TYLENOL W/CODEI1 TAB PO
[2018-04-02 01:45] LABS: BASOPHILS 0.5 % (0-2); EOSINOPHILS 3.3 % (0-7); IMMATURE GRANULOCYTES 0.3 % (0-5); LYMPHOCYTES 21.7 % (15-50); MCH 25.1 pg (26.0-34.0); MCHC 30.3 g/dL (31.0-37.0); MCV 82.8 fL (80.0-100.0); MEAN PLATELET VOLUME 8.8 fL (7.4-10.4); NEUTROPHILS 63.2 % (40-80); RBC 2.27 10x6/uL (4.20-6.10); RDW 18.3 % (11.5-14.5); WBC 7.9 10x3/uL (4.8-10.8)
[2018-04-02 01:48] LABS: PLATELET COUNT 427 10x3/uL (130-400)
[2018-04-02 01:49] LABS: HEMATOCRIT 18.8 % (42.0-54.0); HEMOGLOBIN 5.7 g/dL (13.5-17.5)
[2018-04-02 01:59] LABS: ALBUMIN 3.6 g/dL (3.4-5.0); ALKALINE PHOSPHATASE 63 U/L (46-116); ALT (SGPT) 13 U/L (10-68); BILIRUBIN - TOTAL 0.19 mg/dL (0.2-1.3); CALC OSMOLALITY 255 mosm/kg (275-300); CALCIUM 8.5 mg/dL (8.5-10.1); CARBON DIOXIDE 21.6 mmol/L (21.0-32.0); CHLORIDE - SERUM 93 mmol/L (98-107); GLUCOSE 113 mg/dL (74-106); POTASSIUM - SERUM 3.8 mmol/L (3.5-5.1); PROTEIN - SERUM 7.9 g/dL (6.4-8.2); SODIUM 128 mmol/L (136-145); UREA NITROGEN 7 mg/dL (7-18); eGFR NON AFRICAN AMERICAN 82 mL/min (90-120)
[2018-04-02 02:03] LABS: CREATINE KINASE 139 UL (21-232); MAGNESIUM - SERUM 1.4 mg/dL (1.8-2.4); TROPONIN-I < 0.017 ng/mL (0.000-0.060)
[2018-04-02] MEDS ORDERED: BLOOD PRESSURE (03:48)
[2018-04-02 04:22] VITALS: BP 140/78; BMI 20.2
[2018-04-02 06:35] VITALS: BP 107/79
[2018-04-02 07:49] VITALS: BP 109/83
[2018-04-02 11:28] VITALS: BP 148/77
[2018-04-02 13:05] LABS: % SATURATION 2 % (15-55); IRON 12 ug/dl (35-150); TOTAL IRON BIND CAPACITY 457 ug/dl (260-445); UNSAT IRON BIND CAPACITY 445 ug/dl (150-375)
[2018-04-02 13:57] VITALS: Ht 167.6 cm; Wt 56.6 kg
[2018-04-02 14:17] LABS: INR 1.12 (0.85-1.17)
[2018-04-02 16:37] VITALS: BP 136/71
[2018-04-02 20:14] VITALS: BP 138/87
[2018-04-02 22:57] LABS: HEMATOCRIT 26.9 % (42.0-54.0); HEMOGLOBIN 8.8 g/dL (13.5-17.5)
[2018-04-03] VITALS: BP 140/90
[2018-04-03 04:00] VITALS: BP 127/63
[2018-04-03 04:42] LABS: BASOPHILS 0.1 % (0-2); EOSINOPHILS 0.3 % (0-7); HEMATOCRIT 30.8 % (42.0-54.0); HEMOGLOBIN 9.9 g/dL (13.5-17.5); IMMATURE GRANULOCYTES 0.3 % (0-5); LYMPHOCYTES 21.1 % (15-50); MCH 26.3 pg (26.0-34.0); MCHC 32.1 g/dL (31.0-37.0); MCV 81.9 fL (80.0-100.0); MEAN PLATELET VOLUME 9.5 fL (7.4-10.4); MONOCYTES 18.6 % (2-11); NEUTROPHILS 59.6 % (40-80); PLATELET COUNT 364 10x3/uL (130-400); RDW 17.6 % (11.5-14.5); WBC 6.9 10x3/uL (4.8-10.8)
[2018-04-03 04:44] LABS: RBC 3.76 10x6/uL (4.20-6.10)
[2018-04-03 04:56] LABS: ALBUMIN 3.2 g/dL (3.4-5.0); ALKALINE PHOSPHATASE 55 U/L (46-116); ALT (SGPT) 12 U/L (10-68); BILIRUBIN - TOTAL 0.49 mg/dL (0.2-1.3); CALC OSMOLALITY 262 mosm/kg (275-300); CALCIUM 7.9 mg/dL (8.5-10.1); CARBON DIOXIDE 20.4 mmol/L (21.0-32.0); CHLORIDE - SERUM 101 mmol/L (98-107); CREATININE - SERUM 0.8 mg/dL (0.6-1.3); GLUCOSE 87 mg/dL (74-106); POTASSIUM - SERUM 3.5 mmol/L (3.5-5.1); PROTEIN - SERUM 7.3 g/dL (6.4-8.2); SODIUM 132 mmol/L (136-145); UREA NITROGEN 9 mg/dL (7-18); eGFR NON AFRICAN AMERICAN > 90 mL/min (90-120)
[2018-04-03 06:44] LABS: INR 1.11 (0.85-1.17); PROTIME 13.9 SECONDS (11.6-15.0)
[2018-04-03 08:13] VITALS: BP 127/89
[2018-04-03 08:21] LABS: FOLATE (FOLIC ACID) - SERUM 15.4 ng/mL (>3.0)
[2018-04-03 12:46] VITALS: BP 131/73
[2018-04-03 16:04] VITALS: BP 122/81
[2018-04-03 16:15] LABS: HEMATOCRIT 31.7 % (42.0-54.0); HEMOGLOBIN 10.3 g/dL (13.5-17.5)
[2018-04-03 21:56] VITALS: BP 148/95
[2018-04-03 23:12] LABS: HEMATOCRIT 32.3 % (42.0-54.0); HEMOGLOBIN 10.4 g/dL (13.5-17.5)
[2018-04-04 00:45] VITALS: BP 179/85
[2018-04-04 04:16] VITALS: BP 169/90
[2018-04-04 05:01] LABS: BASOPHILS 0.9 % (0-2); EOSINOPHILS 3.5 % (0-7); HEMATOCRIT 31.9 % (42.0-54.0); HEMOGLOBIN 10.2 g/dL (13.5-17.5); IMMATURE GRANULOCYTES 0.2 % (0-5); LYMPHOCYTES 23.2 % (15-50); MCH 26.5 pg (26.0-34.0); MCV 82.9 fL (80.0-100.0); MEAN PLATELET VOLUME 9.9 fL (7.4-10.4); MONOCYTES 11.5 % (2-11); NEUTROPHILS 60.7 % (40-80); PLATELET COUNT 413 10x3/uL (130-400); RBC 3.85 10x6/uL (4.20-6.10); RDW 17.8 % (11.5-14.5)
[2018-04-04 05:03] LABS: WBC 9.1 10x3/uL (4.8-10.8)
[2018-04-04 05:24] LABS: ALBUMIN 3.2 g/dL (3.4-5.0); ALKALINE PHOSPHATASE 65 U/L (46-116); ALT (SGPT) 13 U/L (10-68); BILIRUBIN - TOTAL 0.31 mg/dL (0.2-1.3); CALC OSMOLALITY 261 mosm/kg (275-300); CALCIUM 7.7 mg/dL (8.5-10.1); CARBON DIOXIDE 23.5 mmol/L (21.0-32.0); CHLORIDE - SERUM 100 mmol/L (98-107); CREATININE - SERUM 0.7 mg/dL (0.6-1.3); GLUCOSE 83 mg/dL (74-106); POTASSIUM - SERUM 3.7 mmol/L (3.5-5.1); PROTEIN - SERUM 7.3 g/dL (6.4-8.2); SODIUM 132 mmol/L (136-145); UREA NITROGEN 6 mg/dL (7-18); eGFR NON AFRICAN AMERICAN > 90 mL/min (90-120)
[2018-04-04 07:47] VITALS: BP 181/104
[2018-04-04 11:32] VITALS: BP 172/103
[2018-04-04] MEDS ORDERED: CARAFATE1 G/10 ML PO (12:22)
== END 2018-04-04 13:26 | disposition home or self-care (01) | DRG 378 ==
LOC: D.ER 00:48 → D.EDHOLD 01:56 → OBSVTIME 01:56 → D.EDHOLD 01:56 → D.M2 02:56
PROVIDERS: Emergency Medicine; Internal Medicine Gastroenterology; Internal Medicine Nephrology
PROC: 0DB78ZX Excision of Stomach, Pylorus, Via Natural or Artificial Opening Endoscopic, Diagnostic (ICD-10-PCS; 2018-04-03)
PROC: 0DB98ZX Excision of Duodenum, Via Natural or Artificial Opening Endoscopic, Diagnostic (ICD-10-PCS; principal; 2018-04-03 08:30)
DX: K29.01 Acute gastritis with bleeding (principal); K22.10 Ulcer of esophagus without bleeding; F17.213 Nicotine dependence, cigarettes, with withdrawal; F10.20 Alcohol dependence, uncomplicated; K44.9 Diaphragmatic hernia without obstruction or gangrene; K29.80 Duodenitis without bleeding; N28.1 Cyst of kidney, acquired; I51.7 Cardiomegaly; R55 Syncope and collapse; D50.9 Iron deficiency anemia, unspecified; B19.20 Unspecified viral hepatitis C without hepatic coma; I73.9 Peripheral vascular disease, unspecified; K59.00 Constipation, unspecified; G89.29 Other chronic pain; M54.9 Dorsalgia, unspecified

== ENCOUNTER 2018-05-12 08:20 | Outpatient (CLI) | payer MEDICARE ==
[~2018-05-12] VITALS: Ht 165.1 cm; Wt 56.6 kg
--- NOTE | ~2018-05-12 | HEMODYNAMI ---
PATIENT:TONIA MCCARTNEY MEDICAL RECORD: [id number] : 60 LOCATION:[facility] ADMISSION DATE: 05/12/18 Generatedon:05/12/201812:14 Patient name: TONIA MCCARTNEY Patient #: [id number] SSN: : 1960 Date of study: 05/12/2018 Page: Of Hemodynamic Procedure Report Patient Data Patient Demographics Procedure consent was obtained First Name: TONIA Gender: Male Last Name: BIB : 1960 Patient #: [id number] Age: 57 year(s) Race: Unknown Additional ID: [id number] Contact details [address]: [address] [place] [address] State: [place] City: [place] Zip code: [address] Admission Admission Data Admission Date: 05/12/2018 Admission Time: 8:20 Procedure Procedure Types Cath Procedure Peripheral Cath Diagnostic Procedure Ladderman Peripheral Procedures Enltq-Ccgyocg-Mts-Off Peripheral vascular Intervention Angioplasty Angioplasty Iliac Initial Procedure Description Procedure Date Procedure Date: 05/12/2018 Procedure Start Time: 10:54 Procedure End Time: 11:52 Procedure Staff Name Function Myra Jalen RT Monitor Benson Scott RN Nurse Holli Boo RN Nurse Jessica Dawn RT Scrub Daniel Bass MD Performing Physician Ciro Becerra RT Hr Representative Procedure Data Cath Procedure Fluoroscopy Diagnostic fluoroscopy Total fluoroscopy Time: time: 15.9 min 15.9 min Diagnostic fluoroscopy Total fluoroscopy dose: 505 dose: 505 mGy mGy Contrast Material Contrast Material Type Amount (ml) Isovue 300 99 Entry Location Entry Primary Successful Side Size Upsize Upsize Entry Closure Succes sful Closure Location (Fr) 1 (Fr) 2 (Fr) Remarks Device Remarks Femoral Left 5 Fr 6 Fr Exoseal artery Short Estimated blood loss: 5 ml Diagnostic catheters Device Type Used For End Catheter Placement DIAGNOSTIC Pigtail 5Fr Multi-vessel catheter ([id number]) Angiography DIAGNOSTIC 3DRC 5Fr Multi-vessel catheter ([id number]) Angiography DIAGNOSTIC Pigtail 5Fr Multi-vessel catheter (436115E) Angiography Procedure Complications No complications Procedure Medications Medication Administration Route Dosage Oxygen etCO2 Nasal cannula 2 l/min Heparin Flush Bag added to field 2 bags (1000units/500ml NS) 0.9% NaCl I.V. 100 ml/hr Fentanyl I.V. 50 mcg Versed I.V. 1 mg Fentanyl I.V. 50 mcg Versed I.V. 1 mg Fentanyl I.V. 50 mcg Heparin Bolus I.V. 5000 units Fentanyl I.V. 50 mcg Versed I.V. 1 mg Fentanyl I.V. 50 mcg Heparin Bolus I.V. 2000 units Hemodynamics Rest Heart Rate: 107 (bpm) Snapshots Pre Cath Intra NCS Post Cath Vital Signs Time Heart Resp SPO2 etCO2 NIBP (mmHg) Rhythm Pain Sedation Rate (ipm) (%) (mmHg) Status Level (bpm) 10:49:12 106 16 100 17.9 185/109(152) NSR 0 (11) 10(A) , No pain 10:53:28 101 17 100 14.9 188/114(144) NSR 0 (11) 10(A) , No pain 10:57:51 105 16 100 26.1 194/113(146) NSR 0 (11) 10(A) , No pain 11:03:22 101 17 100 26.1 182/116(144) NSR 0 (11) 10(A) , No pain 11:07:43 100 17 100 27.6 183/109(142) NSR 0 (11) 10(A) , No pain 11:12:02 101 17 100 23.1 188/108(147) NSR 0 (11) 10(A) , No pain 11:16:25 96 17 100 20.9 181/98(131) NSR 0 (11) 10(A) , No pain 11:20:30 99 17 100 23.8 162/93(121) NSR 0 (11) 10(A) , No pain 11:24:43 97 17 100 24.6 177/100(128) NSR 0 (11) 10(A) , No pain 11:29:00 98 16 100 25.3 168/101(132) NSR 0 (11) 10(A) , No pain 11:33:15 98 17 100 25.3 168/94(129) NSR 0 (11) 10(A) , No pain 11:37:31 98 17 100 23.9 162/94(129) NSR 0 (11) 10(A) , No pain 11:41:44 95 17 100 19.4 153/94(122) NSR 0 (11) 10(A) , No pain 11:45:56 92 17 100 23.1 151/88(117) NSR 0 (11) 10(A) , No pain 11:50:09 95 17 100 19.4 151/88(125) NSR 0 (11) 10(A) , No pain 11:54:22 96 16 100 23.1 166/92(118) NSR 0 (11) 10(A) , No pain 12:00:17 89 11 100 21.6 157/85(124) NSR 0 (11) 10(A) , No pain Medications Time Medication Route Dose Verified Delivered Reason Notes Effectiveness by by 10:47:15 Oxygen etCO2 2 Daniel Benson Per physician Nasal l/min Shelia Scott RN cannula 10:47:22 Heparin Flush added 2 Daniel Benson used for Bag to bags Shelia Scott RN procedure (1000units/500ml field NS) 10:47:31 0.9% NaCl I.V. 100 Daniel Benson Per physician ml/hr Shelia Scott RN, MD 10:51:32 Fentanyl I.V. 50 Daniel Benson for sedation mcg Shelia Scott RN, MD 10:51:41 Versed I.V. 1 mg Daniel Benson for sedation Shelia Scott RN, MD 10:53:51 Fentanyl I.V. 50 Daniel Benson for sedation mcg Shelia Scott RN, MD 10:59:30 Versed I.V. 1 mg Daniel Benson for sedation Shelia Scott RN, MD 11:00:46 Fentanyl I.V. 50 Daniel Benson for sedation mcg Shelia Scott RN, MD 11:15:11 Heparin Bolus I.V. 5000 Daniel Benson for units Shelia Scott RN anticoagulation 11:33:12 Fentanyl I.V. 50 Daniel Benson for sedation mcg Shelia Scott RN, MD 11:38:36 Versed I.V. 1 mg Daniel Benson for sedation Shelia Scott RN, MD 11:38:39 Fentanyl I.V. 50 Daniel Benson for sedation [facility] Shelia Scott RN, MD 11:42:58 Heparin Bolus I.V. 2000 Daniel Knowles for units Shelia Scott RN anticoagulation Procedure Log Time Note 10:15:04 Crio Becerra RT(R) sent for patient. Start room use. 10:26:12 Time tracking: Regular hours (M-F 7:00 - 5:00) 10:26:16 Plan of Care:Hemodynamics will remain stable., Cardiac rhythm will remain stable., Comfort level will be maintained., Respiratory function will remain adequate., Patient/ family verbilizes understanding of procedure., Procedure tolerated without complication., Recovers from procedure without complications.. 10:26:44 Patient received from Pre/Post Procedure Room to CCL 2 Alert and oriented. Tansferred to table in Supine position. 10:26:45 Correct patient and procedure confirmed by team. 10:26:45 Warm blankets applied, and ramon hugger turned on for patient comfort. 10:26:47 Signed procedure consent form obtained from patient. 10:26:50 ECG and BP/O2 sat monitors applied to patient. 10:47:02 Vital chart was started 10:47:12 Baseline sample Acquired. 10:47:15 Oxygen 2 l/min etCO2 Nasal cannula was administered by Benson Scott RN ; Per physician; 10:47:22 Heparin Flush Bag (1000units/500ml NS) 2 bags added to field was administered by Benson Scott RN; used for procedure; 10:47:31 Rhythm: sinus tachycardia 10:47:31 0.9% NaCl 100 ml/hr I.V. was administered by Benson Scott RN; Per physician; 10:47:33 Full Disclosure recording started 10:47:39 H&P Date Dictated: 05/12/2018 Within 30 days and on chart., H&P Addendum completed by physician on day of procedure. (MUST COMPLETE FOR ALL OUTPATIENTS). 10:47:40 Pre-procedure instructions explained to patient. 10:47:41 Pre-op teaching completed and patient verbalized understanding. 10:47:42 Family in waiting room. 10:47:45 Patient NPO since Midnight. 10:47:49 Is the patient allergic to Iodine/contrast media? No. 10:47:50 Was the patient premedicated? No 10:47:51 Is patient on blood thinner?No 10:47:53 Patient diabetic? No. 10:47:56 Previous problem with sedation/anesthesia? No ? 10:47:58 Snore? Yes 10:47:59 Sleep apnea? No 10:48:00 Deviated septum? No 10:48:01 Sticks out tongue? Yes 10:48:01 Opens mouth fully? Yes 10:48:03 Airway obstruction? No ? 10:48:06 Dentures? No ? 10:48:10 Pre procedure: right dorsailis pedis pulse 1+ Palpable, but thready & weak; easily obliterated 10:48:12 Pre procedure: left dorsailis pedis pulse 1+ Palpable, but thready & weak; easily obliterated 10:48:14 Patient pain scale 0/10 ?. 10:48:19 IV patent on arrival in right forearm with 0.9% NaCl at [facility]. 10:48:21 Lab results completed and on chart. 10:48:28 Bilateral groins area was prepped with chlora-prep and draped in steril e fashion 10:48:29 Alarms reviewed by R. N. 10:48:30 Sharps counted by scrub and verified by R.N. 10:48:31 Final Timeout: patient, procedure, and site verified with staff and physician. All members of the team are in agreement. 10:48:31 --------ALL STOP TIME OUT------ 10:48:31 Physician arrived 10:48:33 Bilateral groins site verified by team. 10:48:36 Physical assessment completed. ASA score P 2 - A patient with mild systemic disease as per Daniel Bass MD. 10:48:39 Sedation plan: IV Moderate Sedation Medication:Versed, Fentanyl 10:48:51 - 10:49:28 Procedure started. 10:51:17 Procedure type changed to Cath procedure, Peripheral Cath Diagnostic Procedure, Ladderman Peripheral Procedures, Ibajq-Ezhdpcq-Pjt-Off, Peripheral vascular Intervention, Angioplasty, Angioplasty Iliac Initial 10:51:32 Fentanyl 50 mcg I.V. was administered by Benson Scott RN; for sedation ; 10:51:41 Versed 1 mg I.V. was administered by Benson Scott RN; for sedation; 10:53:51 Fentanyl 50 mcg I.V. was administered by Benson Scott RN; for sedation ; 10:54:08 Use device set Femoral Dx 10:54:10 Bag Decanter (2002S) opened to sterile field. 10:54:10 ACIST Syringe (24497) opened to sterile field. 10:54:11 Medline Cath Pack ([id number]) opened to sterile field. 10:54:12 DIAGNOSTIC WIRE .035 260cm J wire (921393) opened to sterile field. 10:54:13 ACIST Hand Control (54989) opened to sterile field. 10:54:15 ACIST Manifold (95849) opened to sterile field. 10:54:17 Tegaderm 4 x 4 (1626W) opened to sterile field. 10:54:32 SHEATH Prelude 5Fr 0.035 (SNU-5K-12-035) opened to sterile field. 10:54:41 MICROPUNCTURE 4FR Cook (L26837) opened to sterile field. 10:54:49 Local anesthetic to left femerol artery with Lidocaine 2% by Daniel orta MD.INITIAL ACCESS ONLY 10:59:30 Versed 1 mg I.V. was administered by Benson Scott RN; for sedation; 11:00:02 Access obtained with 4Fr micropunture. 11:00:46 Fentanyl 50 mcg I.V. was administered by Benson Scott RN; for sedation ; 11:00:48 A 5 Fr sheath was inserted into the Left Femoral artery 11:01:50 A DIAGNOSTIC Pigtail 5Fr catheter (274127Y) was advanced over the wire and used for Multi-vessel Angiography. 11:02:08 Abdominal angiogram w/ runoff was performed. 11:06:52 GLIDE WIRE MERIT Angled 260cm ([id number]) opened to sterile field. 11:07:06 TORQUE DEVICE PLASTIC .038 ( TD01) opened to sterile field. 11:08:43 FIELDER XT J 300cm guide wire ([id number]) opened to sterile field. 11:11:00 fielder wire advanced. 11:15:00 Catheter removed. 11:15:11 Heparin Bolus 5000 units I.V. was administered by Benson Scott RN; for anticoagulation; 11:18:44 INFLATOR Merit Fayk (ZJ1210) opened to sterile field. 11:19:54 Inflate balloon Inflation number: 1 A EMERGE OTW 4.0 x 20 balloon ([id number]) was prepped and advanced across the Proximal Common Iliac, Right, then inflated to 15 MURALI for 0:10 (min:sec). 11:21:00 Wire removed. 11:23:42 Miraclebros 300cm wire (1429546) opened to sterile field. 11:24:29 miracle bros wire advanced. 11:24:30 Balloon removed over the wire. 11:29:15 GLIDE CATHETER 5FR STRAIGHT 100cm (CG506) opened to sterile field. 11:29:44 5 Fr glide catheter guide catheter was inserted over the wire 11:29:51 Catheter removed. 11:31:00 SHEATH 6Fr Prelude Radial ([id number]) opened to sterile field. 11:31:11 Sheath upsized to a 6 Fr Short. 11:33:12 Fentanyl 50 mcg I.V. was administered by Benson Scott RN; for sedation ; 11:34:18 CXI SUPPORT .035 135 CM STR catheter ([id number]) opened to sterile field. 11:38:26 quick cross inserted; then removed 11:38:36 Versed 1 mg I.V. was administered by Benson Scott RN; for sedation; 11:38:39 Fentanyl 50 mcg I.V. was administered by Benson Scott RN; for sedation ; 11:40:38 A DIAGNOSTIC 3DRC 5Fr catheter ([id number]) was advanced over the wire and used for Multi-vessel Angiography. 11:42:40 Right leg runoff performed. 11:42:58 Heparin Bolus 2000 units I.V. was administered by Benson Scott RN; for anticoagulation; 11:43:31 Catheter removed. 11:44:01 A DIAGNOSTIC Pigtail 5Fr catheter (552568F) was advanced over the wire and used for Multi-vessel Angiography. 11:49:00 Left leg runoff performed. 11:49:45 Catheter removed. 11:50:04 EXOSEAL 6Fr (EX600) opened to sterile field. 11:50:45 Sheath removed intact; hemostasis achieved with Exoseal to the Left Femoral artery. 11:50:48 Procedure ended.(Physican Out) 11:50:57 Fluoroscopy time 15.90 minutes. 11:51:03 Fluoroscopy dose: 505 mGy 11:51:03 Flurop Dose total: 505 11:51:28 Contrast amount:Isovue 300 99ml. 11:51:29 Sharps counted by scrub and verified by R.N. 11:51:31 Insertion/operative site no bleeding no hematoma. 11:51:43 Post-op/insertion site Left Femoral artery dressed using a 4 x 4 and Tegaderm. 11:51:51 Post right femoral artery:stable 11:52:21 Post Procedure Pulses reassessed and unchanged 11:52:26 Post procedure rhythm: unchanged. 11:52:29 Estimated blood loss: 5 ml 11:52:31 Patient needs reinforcement of post procedure teaching. 11:52:31 Post procedure instruction explained to patient.Patient verbalizes understanding. 11:52:33 Procedure and supply charges have been captured, reviewed, submitted an d are correct. 11:52:37 Procedure Complication : No complications 11:52:40 Vital chart was stopped 11:52:41 See physician's report for complete and final results. 11:52:49 Report given to Pre/Post Procedure Room. 11:52:52 Patient transfered to Pre/Post Procedure Room with Stretcher. 11:52:55 Full Disclosure recording stopped 11:52:55 Procedure ended. 11:52:59 End room use (Document Last) 12:03:25 reopened case due to development of hematoma while patient still on table 12:03:28 Patient developed hematoma; Dr Bass in the room to assist ordnance engineering technician; another blood pressure taken; 157/85 12:12:40 FEMSTOP Gold (K34820) opened to sterile field. 12:13:14 Femstop placed over the left femerol artery at 135 mmHg. Hemostasis achieved. 12:13:23 End room use (Document Last) Intervention Summary Intervention Notes Time ActionType Lesion and Equipment Action# Pressure Duration Attributes Used 11:19:54 Inflate Proximal EMERGE OTW 1 15 00:10 balloon Common 4.0 x 20 Iliac, balloon Right ([id number]) Device Usage Item Name Manufacture Quantity Catalog Number Hospital Part Current Minimal Lot# / Charge Number Stock Stock Serial# Code ACIST Syringe Acist 1 10005 046630 459185 530465 20 (86820) Medical Systems Inc Bag Decanter Microtek 1 2001S 064413 77958 154947 5 () Medical Inc. Medline Cath Cardinal 1 [id number] 507088 47744 010871 5 Pack Health ([id number]) DIAGNOSTIC WIRE St Mukesh 1 706437 120979 473230 453763 30 .035 260cm J wire (631575) ACIST Hand Acist 1 93141 327053 841258 092664 5 Control (33676) Medical Systems Inc ACIST Manifold Acist 1 21371 637132 876524 827394 5 (58198) Medical Systems Inc Tegaderm 4 x 4 3M 1 1626W 048681 528277 963872 5 (1626W) MICROPUNCTURE Cook Medical 1 V55913 836097 166997 666585 5 4FR Cook (Q88468) DIAGNOSTIC Cardinal 1 [id number] 426289 318134 380993 5 Pigtail 5Fr Health catheter (433291G) GLIDE WIRE Merit 1 [id number] 788485 260873 107322 5 MERIT Angled Medical 260cm ([id number]) TORQUE DEVICE [place] 1 TD01 127546 841800 059767 5 PLASTIC .038 ( Scientific TD01) FIELDER XT J Ridley 1 [id number] 498964 991579 865565 5 300cm guide Vascular wire ([id number]) SHEATH Prelude Merit 1 NFR-2K-89-035 359387 853003 609517 5 5Fr 0.035 Medical (YAG-2Q-78-035) INFLATOR Merit Merit 1 AU9093 603505 359835 020709 15 BasixCompak Medical (EN0864) EMERGE OTW 4.0 [place]field 1 [id number] 950382 987330 851011 5 [id number] x 20 balloon Scientific ([id number]) Miraclebros Ridley 1 39937-93 345790 200491 681578 5 300cm wire Vascular (5025589) GLIDE CATHETER Terumo 1 CG506 903661 41678 254391 4 5FR STRAIGHT 100cm (CG506) SHEATH 6Fr Merit 1 [id number] 408647 786098 494646 5 Prelude Radial Medical ([id number]) CXI SUPPORT Cook Medical 1 C93248 041462 287783 389530 5 1382010 .035 135 CM STR catheter (G98541) DIAGNOSTIC 3DRC Cardinal 1 [id number] 740058 680641 723071 9 5Fr catheter Health (446488B) EXOSEAL 6Fr Cardinal 1 EX600 103257 791307 001413 10 (EX600) Health FEMSTOP Gold St Mukesh 1 J66709 981810 819874 303643 5 (R56261) Signature Audit [place] Stage Time Signature Unsigned Intra-Procedure 05/12/2018 Myra Rao RT(R) 11:56:02 AM RT(R) 05/12/2018 11:59:05 AM Intra-Procedure 05/12/2018 Myra Rao 12:14:11 PM RT(R) Signatures Monitor : Myra Rao RT Signature : Date : Time : [facility] [address] [place] [address]
--- NOTE | ~2018-05-12 | OP ---
PATIENT NAME: TONIA MCCARTNEY MEDICAL RECORD: [id number] :60 LOCATION:D.M2 D.2106 ADMISSION DATE: SURGEON: WILLARD SHIRLEY MD DATE OF OPERATION: 05/12/2018 PROCEDURES: 1. AFR. 2. MEDICAL FILE CLERK of the right common iliac artery. DESCRIPTION OF PROCEDURE: The patient was brought to cardiac catheterization lab in stable condition. Both groins were sterilely prepped and draped. The patient had a sheath placed into the left common femoral artery in a retrograde fashion using modified Seldinger technique. The patient then had a pigtail catheter taken over a J-tipped wire into the abdominal aorta. Angiography was performed with follow through down the left leg. We then had angiography with follow through down the right leg. FINDINGS: 1. The abdominal aorta is densely calcified. There is no aneurysmal dilatation of significance. There is dense atherosclerotic changes. 2. The right common iliac artery is heavily calcified, has a 99% stenosis in the proximal portion. The patient then has 100% stenosis of the mid common femoral artery on the right. The patient then has collaterals via the internal iliac artery and small peripheral penetrating vessels that reconstitute the profunda. The SFA is 100% occluded. The popliteal is 100% occluded and there is no flow that we can see into the organized vessels below the right knee. 3. The left common and external iliac artery have diffuse calcific atherosclerotic changes. The left common femoral artery is 100% occluded. The left SFA is 100% occluded. There are recollateralized segments of the profunda in the mid segment to distal segment, but we do not see organized flow below the left knee. TRANSINT:[id number] Voice Confirmation ID: [id number] DOCUMENT ID: [id number] WILLARD SHIRLEY MD at 0808 CC: [id number] DICTATION DATE: 05/12/18 1246 WIND TUNNEL ENGINEER: 05/12/18 1354 REG [facility] [address] [place] [address]
[~2018-05-12 08:20] MED LIST changes: +BLOOD PRESSURE
[2018-05-12] MEDS ORDERED: LISINOPRIL10 MG PO (09:33)
[2018-05-12 09:35] LABS: BASOPHILS 0.5 % (0-2); EOSINOPHILS 2.4 % (0-7); HEMATOCRIT 31.4 % (42.0-54.0); HEMOGLOBIN 10.2 g/dL (13.5-17.5); IMMATURE GRANULOCYTES 0.3 % (0-5); LYMPHOCYTES 23.8 % (15-50); MCH 27.4 pg (26.0-34.0); MCHC 32.5 g/dL (31.0-37.0); MCV 84.4 fL (80.0-100.0); MEAN PLATELET VOLUME 9.7 fL (7.4-10.4); MONOCYTES 12.5 % (2-11); NEUTROPHILS 60.5 % (40-80); PLATELET COUNT 453 10x3/uL (130-400); RBC 3.72 10x6/uL (4.20-6.10); RDW 18.5 % (11.5-14.5); WBC 5.9 10x3/uL (4.8-10.8)
[2018-05-12] MEDS ORDERED: HCTZ25 MG PO (09:35)
[2018-05-12 09:42] LABS: CALC OSMOLALITY 253 mosm/kg (275-300); CALCIUM 10.1 mg/dL (8.5-10.1); CARBON DIOXIDE 25.5 mmol/L (21.0-32.0); CHLORIDE - SERUM 92 mmol/L (98-107); CREATININE - SERUM 0.7 mg/dL (0.6-1.3); GLUCOSE 95 mg/dL (74-106); SODIUM 128 mmol/L (136-145); UREA NITROGEN 4 mg/dL (7-18); eGFR NON AFRICAN AMERICAN > 90 mL/min (90-120)
[2018-05-12 09:43] LABS: POTASSIUM - SERUM 4.7 mmol/L (3.5-5.1)
[2018-05-12 09:44] VITALS: BP 171/84; BMI 22.5
[2018-05-12 12:56] VITALS: BP 170/89
[2018-05-12 17:36] VITALS: BP 198/88; Ht 165.1 cm; Wt 56.6 kg
[2018-05-12 20:24] VITALS: BP 148/102
[2018-05-13] VITALS: BP 89/59
[2018-05-13 06:19] VITALS: BP 151/111
[2018-05-13] MEDS ORDERED: BAYER CHEWABLE81 MG PO (08:06)
[2018-05-13] MEDS ORDERED: LIPITOR40 MG PO (08:06)
[2018-05-13] MEDS ORDERED: CILOSTAZOL50 MG PO (08:07)
[2018-05-13 09:30] VITALS: BP 116/74
== END 2018-05-13 14:45 | disposition home or self-care (01) ==
LOC: D.CATH 08:20 → D.M2 12:51 → D.CATH 05-13 14:45
PROVIDERS: Internal Medicine Cardiovascular Disease
DX: I70.203 Unspecified atherosclerosis of native arteries of extremities, bilateral legs (principal); I70.92 Chronic total occlusion of artery of the extremities; F17.203 Nicotine dependence unspecified, with withdrawal; Z01.812 Encounter for preprocedural laboratory examination; I70.0 Atherosclerosis of aorta

== ENCOUNTER 2018-05-25 23:20 | Inpatient (IN) | payer MEDICARE ==
[~2018-05-25] VITALS: Ht 165.1 cm; Wt 56.9 kg
--- NOTE | ~2018-05-25 | MORECARE ---
CASE MANAGEMENT DISCHARGE SUMMARY PATIENT: TONIA MCCARTNEY UNIT: [id number] ADM DATE: 05/26/18 AGE: 57 : 60 SEX: M ROOM/BED: D.[facility] AUTHOR: JACI KELLY PHYSICIAN: REFERRING PHYSICIAN: CL LOUISE MD DATE OF SERVICE: 05/30/18 Discharge Plan Patient Name: TONIA MCCARTNEY [facility] [facility] 1960 Planned Disposition: Anticipated Discharge Date: Discharge Date: Expected LOS: Initial Reviewer: [email or web address] Initial Review Date: 05/30/2018 Generated: 05/30/18 3:25 pm Patient Name: TONIA MCCARTNEY Page 55775 at 1425 All edits/amendments must be made on the electronic document DICTATION DATE: 05/30/181424 DROP WIRE ALIGNER: ALVARADO 05/30/18 142 RPT#: [id number] DC DATE: STATUS: ADM IN [facility] [address] [place] [address] END OF REPORT
--- NOTE | ~2018-05-25 | MORECARE ---
CASE MANAGEMENT DISCHARGE SUMMARY PATIENT: TONIA MCCARTNEY UNIT: [id number] ADM DATE: 05/26/18 AGE: 57 : 60 SEX: M ROOM/BED: D.2111 AUTHOR: ROBINDOC PHYSICIAN: REFERRING PHYSICIAN: CL LOUISE MD DATE OF SERVICE: 05/30/18 Discharge Plan Patient Name: TONIA MCCARTNEY Facility: [facility]:[place] : 1960 Planned Disposition: Anticipated Discharge Date: Discharge Date: Expected LOS: Initial Reviewer: [email or web address] Initial Review Date: 05/30/2018 Generated: 05/30/18 3:32 pm Comments DCP- Discharge Planning Updated by [email or web address]: Maria Del Carmen Peters on 05/30/18 1:[address] Patient Name: TONIA MCCARTNEY Admission Status: ER Accout number: [id number] Admission Date: 05-26-2018 : 1960 Admission Diagnosis:PAIN IN RIGHT FOOT Attending: CL LOUISE Current LOS: 4 Anticipated DC Date: Planned Disposition: Primary Insurance: MEDICARE A & B Discharge Planning Comments: CM MET WITH PATIENT ABOUT DC PLANNING/NEEDS. STATES MAY NEED WALKER OR WHEELCHAIR WHEN DC'D HOME. STATES FAMILY IS BUILDING HIM A RAMP AT HIS HOUSE. STATES HE LIVES AT HOME WITH HIS SISTER. MAY NEED HH FOR WOUND CARE AND PT. CM WILL FOLLOW AND ASSIST NEEDED WITH DC PLANNING NEEDS. IT IS STILL TOO EARLY TO DETERMINE WHAT HE MAY NEED AT TIME OF DC . Tobacco Sorter: Maria Del Carmen Peters DCPIA - Discharge Planning Initial Assessment Updated by [email or web address]: Maria Del Carmen Peters on 05/30/18 2:25 pm * Is the patient Alert and Oriented? Yes * How many steps to enter\exit or inside your home? RAMP * PCP SANG * Pharm[facility] [place] * Preadmission Environment Home with Family * ADLs Independent * Equipment None * List name and contact numbers for known caregivers / representatives who currently or will assist patient after discharge: SISTER HUTTON, * Community resources currently utilized None * Can the patient safely return to the preadmission environment? Yes * Has this patient been hospitalized within the prior 30 days at any hospital? No Last DP export: 05/30/18 1:25 Patient Name: BIBTONIA Page [phone] at 1432 All edits/amendments must be made on the electronic document DICTATION DATE: 05/30/181430 HEARING THERAPY DIRECTOR: ALVARADO 05/30/181430 RPT#: [id number] DC DATE: STATUS: ADM IN [facility] [address] [place] [address] END OF REPORT
--- NOTE | ~2018-05-25 | MORECARE ---
CASE MANAGEMENT DISCHARGE SUMMARY PATIENT: TONIA MCCARTNEY UNIT: [id number] ADM DATE: 05/26/18 AGE: 57 : 60 SEX: M ROOM/BED: D[facility] AUTHOR: ROBIN,DOC PHYSICIAN: REFERRING PHYSICIAN: CL LOUISE MD DATE OF SERVICE: 06/04/18 Discharge Plan Patient Name: TONIA MCCARTNEY [facility] [facility] 1960 Planned Disposition: Inpatient Rehab Anticipated Discharge Date: 06/04/18 Discharge Date: Expected LOS: 9 Initial Reviewer: [id number] Initial Review Date: 05/30/2018 Generated: 06/04/18 3:49 pm Comments DCP- Discharge Planning Updated by [email or web address]: Jacob Carroll on 06/04/18 1:[address] Patient Name: TONIA MCCARTNEY Encounter No: [id number] : 1960 Primary Insurance: MEDICARE A & B Anticipated DC Date: 06-04-2018 Planned Disposition: Inpatient Rehab External Planned Provider: [facility] DCP follow-up note: CM SPOKE TO DANY OF INPATIENT REHAB, THEY PLAN TO ACCEPT PT TODAY FOR REHAB. PT NOTIFIED, IN AGREEMENT WITH DISCHARGE TO INPATIENT REHAB. JAD ORTIZ NOTIFIED AND WILL DISCHARGE PT TO REHAB. STOCK REPLENISHER NOTIFIED. [facility] TO ACCEPT PT TO ROOM 1118-B. [facility] READY FOR REPORT AND TO ACCEPT PT. Jacob Carroll, CASE MANAGEMENT DCP- Discharge Planning Updated by [id number]: Jacob Carroll on 06/03/18 3:[address] Patient Name: TONIA MCCARTNEY Encounter No: [id number] : 1960 Primary Insurance: MEDICARE A & B Anticipated DC Date: 06-04-2018 Planned Disposition: Inpatient Rehab External Planned Provider: [facility] DCP follow-up note: CM RECEIVED ORDER FOR INPATIENT REHAB PRESCREENING, SPOKE TO PT IN ROOM, DISCUSSED AVAILABILITY OF REHAB SERVICES, PROVIDERS AND LOCATIONS. PT WOULD LIKE TO RETURN HOME SOON POSSIBLE WITH HOME HEALTH, REPORTS ABILITY FOR SISTER TO DRIVE HIM TO [place] FOR DR. DIA. PT SIGNED CHOICE FOR NO PREFERENCE ON HOME HEALTH PROVIDER BUT HAS NO PRIMARY DOCTOR FOR HOME HEALTH ORDERS. PT REPORTS HAVING CRUTCHES, WALKER, 4 WHEELED WALKER WITH SEAT AND WHEELCHAIR FROM FAMILY MEMBERS AT HOME BUT WOULD LIKE A WHEELCHAIR OF HIS OWN. PT HAS NO PREFERNECE ON PROVIDER FOR WHEELCHAIR. CM EXPLAINED TO PT THAT THERAPY WOULD EVALUATE PT AND PROVIDE RECOMMENDATIONS TO IF PT MIGHT SAFELY DISCHARGE HOME, PT STATES HE WILL PARTICIPATE WITH EVALUATION. IMPORTANT MESSAGE FROM MEDICARE PROVIDED AND DISCUSSED. PT STATES HE WILL CONSIDER INPATIENT REHAB AT [place] IF THERAPY RECOMMENDS IT TO HIM. CM SPOKE TO DR. JEAN BAPTISTE WHO REPORTS THAT PT IS READY TO DISCHARGE FROM HIS STANDPOINT, DR. JEAN BAPTISTE WILL CHANGE DRESSING TOMORROW AND PT IS TO BEAR NO WEIGHT ON HIS RIGHT FOOT. CM SPOKE TO JAD ORTIZ WHO CONSULTED WITH DR. ALANIS AND IF PT IS ABLE TO GO HOME, THEY WILL HAVE PT FOLLOW UP WITH DR. LOUISE NEXT WEEK AND PROVIDE HOME HEALTH PHYSICAL THERPY AND WHEELCHAIR ORDERS. CM SPOKE TO THERAPISTS WHO EVALUATED PT AND RECOMMENDS INPATIENT REHAB SERVICES FOR SAFE DISCHARGE. CM SPOKE TO PT WHO IS IN AGREEMENT. CM SPOKE TO DANY OF INPATIENT REHAB AND NOTIFIED OF ABOVE INFORMATION. CM WAITING INPATIENT PRESCREENING AND ADMISSION DETERMINATION FROM [facility]. Jacob Carroll, CASE MANAGEMENT DCP- Discharge Planning Updated by [id number]: Maria Del Carmen Peters on 05/30/18 1:[address] Patient Name: TONIA MCCARTNEY Admission Status: ER Accout number: [id number] Admission Date: 05-26-2018 : 1960 Admission Diagnosis:PAIN IN RIGHT FOOT Attending: CL LOUISE Current LOS: 4 Anticipated DC Date: Planned Disposition: Primary Insurance: MEDICARE A & B Discharge Planning Comments: CM MET WITH PATIENT ABOUT DC PLANNING/NEEDS. STATES MAY NEED WALKER OR WHEELCHAIR WHEN DC'D HOME. STATES FAMILY IS BUILDING HIM A RAMP AT HIS HOUSE. STATES HE LIVES AT HOME WITH HIS SISTER. MAY NEED HH FOR WOUND CARE AND PT. CM WILL FOLLOW AND ASSIST NEEDED WITH DC PLANNING NEEDS. IT IS STILL TOO EARLY TO DETERMINE WHAT HE MAY NEED AT TIME OF DC . Internet Sales Representative: Maria Del Carmen Peters DCPIA - Discharge Planning Initial Assessment Updated by [email or web address]: Maria Del Carmen Peters on 05/30/18 2:25 pm * Is the patient Alert and Oriented? Yes * How many steps to enter\exit or inside your home? RAMP * PCP SANG * [facility] IN [place] * Preadmission Environment Home with Family * ADLs Independent * Equipment None * List name and contact numbers for known caregivers / representatives who currently or will assist patient after discharge: SISTER HUTTON, * Community resources currently utilized None * Can the patient safely return to the preadmission environment? Yes * Has this patient been hospitalized within the prior 30 days at any hospital? No Coverage Notice Reviewer: KAYLEIGH Carroll Notice Issued Date-Time: 06/03/2018 13:10 Notice Type: IM Discharge Notice Notice Delivered To: Patient Relationship to Patient: Wire Threader Name: Delivery Method: HAND - Hand Delivered Margi Days: Prior Verbal Notification: Recipient Understood Notice: Yes Recipient Signature: Yes Med Rec Note Co-signed by Attending: Coverage Notice Comment: Reviewer: KAYLEIGH Carroll Notice Issued Date-Time: 06/03/2018 13:10 Notice Type: Patient Choice Letter Notice Delivered To: Patient Relationship to Patient: Wire Threader Name: Delivery Method: HAND - Hand Delivered Margi Days: Prior Verbal Notification: Recipient Understood Notice: Yes Recipient Signature: Yes Med Rec Note Co-signed by Attending: Coverage Notice Comment: NO PREFERENCE ON [facility] PROVIDER Last DP export: 06/04/18 1:32 p Patient Name: TONIA MCCARTNEY Page [phone] at 1449 All edits/amendments must be made on the electronic document DICTATION DATE: 06/04/181447 DATA SUPPORT SPECIALIST: ALVARADO 06/04/181447 RPT#: [id number] DC DATE: STATUS: ADM IN [facility] [address] [place] [address] END OF REPORT
--- NOTE | ~2018-05-25 | MORECARE ---
CASE MANAGEMENT DISCHARGE SUMMARY PATIENT: TONIA MCCARTNEY UNIT: [id number] ADM DATE: 05/26/18 AGE: 57 : 60 SEX: M ROOM/BED: D.2111 AUTHOR: ROBIN,DOC PHYSICIAN: REFERRING PHYSICIAN: CL LOUISE MD DATE OF SERVICE: 06/04/18 Discharge Plan Patient Name: TONIA MCCARTNEY [facility] [facility] 1960 Planned Disposition: Inpatient Rehab Anticipated Discharge Date: 06/04/18 Discharge Date: Expected LOS: 9 Initial Reviewer: [id number] Initial Review Date: 05/30/2018 Generated: 06/04/18 3:32 pm Comments DCP- Discharge Planning Updated by [id number]: Jacob Carroll on 06/03/18 3:[address] Patient Name: TONIA MCCARTNEY Encounter No: [id number] : 1960 Primary Insurance: MEDICARE A & B Anticipated DC Date: 06-04-2018 Planned Disposition: Inpatient Rehab External Planned Provider: [facility] DCP follow-up note: CM RECEIVED ORDER FOR INPATIENT REHAB PRESCREENING, SPOKE TO PT IN ROOM, DISCUSSED AVAILABILITY OF REHAB SERVICES, PROVIDERS AND LOCATIONS. PT WOULD LIKE TO RETURN HOME SOON POSSIBLE WITH HOME HEALTH, REPORTS ABILITY FOR SISTER TO DRIVE HIM TO [place] FOR DR. DIA. PT SIGNED CHOICE FOR NO PREFERENCE ON HOME HEALTH PROVIDER BUT HAS NO PRIMARY DOCTOR FOR HOME HEALTH ORDERS. PT REPORTS HAVING CRUTCHES, WALKER, 4 WHEELED WALKER WITH SEAT AND WHEELCHAIR FROM FAMILY MEMBERS AT HOME BUT WOULD LIKE A WHEELCHAIR OF HIS OWN. PT HAS NO PREFERNECE ON PROVIDER FOR WHEELCHAIR. CM EXPLAINED TO PT THAT THERAPY WOULD EVALUATE PT AND PROVIDE RECOMMENDATIONS TO IF PT MIGHT SAFELY DISCHARGE HOME, PT STATES HE WILL PARTICIPATE WITH EVALUATION. IMPORTANT MESSAGE FROM MEDICARE PROVIDED AND DISCUSSED. PT STATES HE WILL CONSIDER INPATIENT REHAB AT [place] IF THERAPY RECOMMENDS IT TO HIM. CM SPOKE TO DR. JEAN BAPTISTE WHO REPORTS THAT PT IS READY TO DISCHARGE FROM HIS STANDPOINT, DR. JEAN BAPTISTE WILL CHANGE DRESSING TOMORROW AND PT IS TO BEAR NO WEIGHT ON HIS RIGHT FOOT. CM SPOKE TO JAD ORTIZ WHO CONSULTED WITH DR. ALANIS AND IF PT IS ABLE TO GO HOME, THEY WILL HAVE PT FOLLOW UP WITH DR. LOUISE NEXT WEEK AND PROVIDE HOME HEALTH PHYSICAL THERPY AND WHEELCHAIR ORDERS. CM SPOKE TO THERAPISTS WHO EVALUATED PT AND RECOMMENDS INPATIENT REHAB SERVICES FOR SAFE DISCHARGE. CM SPOKE TO PT WHO IS IN AGREEMENT. CM SPOKE TO DANY OF INPATIENT REHAB AND NOTIFIED OF ABOVE INFORMATION. CM WAITING INPATIENT PRESCREENING AND ADMISSION DETERMINATION FROM [facility]. Jacob Carroll, CASE MANAGEMENT DCP- Discharge Planning Updated by [id number]: Maria Del Carmen Peters on 05/30/18 1:[address] Patient Name: TONIA MCCARTNEY Admission Status: ER Accout number: [id number] Admission Date: 05-26-2018 : 1960 Admission Diagnosis:PAIN IN RIGHT FOOT Attending: CL LOUISE Current LOS: 4 Anticipated DC Date: Planned Disposition: Primary Insurance: MEDICARE A & B Discharge Planning Comments: CM MET WITH PATIENT ABOUT DC PLANNING/NEEDS. STATES MAY NEED WALKER OR WHEELCHAIR WHEN DC'D HOME. STATES FAMILY IS BUILDING HIM A RAMP AT HIS HOUSE. STATES HE LIVES AT HOME WITH HIS SISTER. MAY NEED HH FOR WOUND CARE AND PT. CM WILL FOLLOW AND ASSIST NEEDED WITH DC PLANNING NEEDS. IT IS STILL TOO EARLY TO DETERMINE WHAT HE MAY NEED AT TIME OF DC . Hand Laster: Maria Del Carmen Peters DCPIA - Discharge Planning Initial Assessment Updated by [id number]: Maria Del Carmen Lorraine on 05/30/18 2:25 pm * Is the patient Alert and Oriented? Yes * How many steps to enter\exit or inside your home? RAMP * PCP SANG * Pharm[facility] IN [place] * Preadmission Environment Home with Family * ADLs Independent * Equipment None * List name and contact numbers for known caregivers / representatives who currently or will assist patient after discharge: SISTER HUTTON, * Community resources currently utilized None * Can the patient safely return to the preadmission environment? Yes * Has this patient been hospitalized within the prior 30 days at any hospital? No Coverage Notice Reviewer: [id number] - Jacob Carroll Notice Issued Date-Time: 06/03/2018 13:10 Notice Type: IM Discharge Notice Notice Delivered To: Patient Relationship to Patient: Acid Loader Name: Delivery Method: HAND - Hand Delivered Margi Days: Prior Verbal Notification: Recipient Understood Notice: Yes Recipient Signature: Yes Med Rec Note Co-signed by Attending: Coverage Notice Comment: Reviewer: [id number] - Jacob Carroll Notice Issued Date-Time: 06/03/2018 13:10 Notice Type: Patient Choice Letter Notice Delivered To: Patient Relationship to Patient: Acid Loader Name: Delivery Method: HAND - Hand Delivered Margi Days: Prior Verbal Notification: Recipient Understood Notice: Yes Recipient Signature: Yes Med Rec Note Co-signed by Attending: Coverage Notice Comment: NO PREFERENCE ON [facility] PROVIDER Last DP export: 06/03/18 3:52 Patient Name: BIBTONIA Page [id number] at 1433 All edits/amendments must be made on the electronic document DICTATION DATE: 06/04/181431 BUTTON TUFTER: ALVARADO 06/04/181431 RPT#: [id number] DC DATE: STATUS: ADM IN [facility] [address] [place] [address] END OF REPORT
--- NOTE | ~2018-05-25 | MORECARE ---
CASE MANAGEMENT DISCHARGE SUMMARY PATIENT: TONIA MCCARTNEY UNIT: [id number] ADM DATE: 05/26/18 AGE: 57 : 60 SEX: M ROOM/BED: D.2111 AUTHOR: ROBINDOC PHYSICIAN: REFERRING PHYSICIAN: CL LOUISE MD DATE OF SERVICE: 06/03/18 Discharge Plan Patient Name: TONIA MCCARTNEY Facility: [facility]:[place] : 1960 Planned Disposition: Inpatient Rehab Anticipated Discharge Date: 06/04/18 Discharge Date: Expected LOS: 9 Initial Reviewer: [id number] Initial Review Date: 05/30/2018 Generated: 06/03/18 5:43 pm Comments DCP- Discharge Planning Updated by [email or web address]: Maria Del Carmen Peters on 05/30/18 1:[address] Patient Name: TONIA MCCARTNEY Admission Status: ER Accout number: [id number] Admission Date: 05-26-2018 : 1960 Admission Diagnosis:PAIN IN RIGHT FOOT Attending: CL LOUISE Current LOS: 4 Anticipated DC Date: Planned Disposition: Primary Insurance: MEDICARE A & B Discharge Planning Comments: CM MET WITH PATIENT ABOUT DC PLANNING/NEEDS. STATES MAY NEED WALKER OR WHEELCHAIR WHEN DC'D HOME. STATES FAMILY IS BUILDING HIM A RAMP AT HIS HOUSE. STATES HE LIVES AT HOME WITH HIS SISTER. MAY NEED HH FOR WOUND CARE AND PT. CM WILL FOLLOW AND ASSIST NEEDED WITH DC PLANNING NEEDS. IT IS STILL TOO EARLY TO DETERMINE WHAT HE MAY NEED AT TIME OF DC . Ultrasound Supervisor: Maria Del Carmen Peters DCPIA - Discharge Planning Initial Assessment Updated by [id number]: Maria Del Carmen Peters on 05/30/18 2:25 pm * Is the patient Alert and Oriented? Yes * How many steps to enter\exit or inside your home? RAMP * PCP SANG * Pharm[facility] IN [place] * Preadmission Environment Home with Family * ADLs Independent * Equipment None * List name and contact numbers for known caregivers / representatives who currently or will assist patient after discharge: SISTER HUTTON, * Community resources currently utilized None * Can the patient safely return to the preadmission environment? Yes * Has this patient been hospitalized within the prior 30 days at any hospital? No Coverage Notice Reviewer: [id number] Carroll Notice Issued Date-Time: 06/03/2018 13:10 Notice Type: IM Discharge Notice Notice Delivered To: Patient Relationship to Patient: Customer Professional Name: Delivery Method: HAND - Hand Delivered Margi Days: Prior Verbal Notification: Recipient Understood Notice: Yes Recipient Signature: Yes Med Rec Note Co-signed by Attending: Coverage Notice Comment: Reviewer: [id number] Carroll Notice Issued Date-Time: 06/03/2018 13:10 Notice Type: Patient Choice Letter Notice Delivered To: Patient Relationship to Patient: Customer Professional Name: Delivery Method: HAND - Hand Delivered Margi Days: Prior Verbal Notification: Recipient Understood Notice: Yes Recipient Signature: Yes Med Rec Note Co-signed by Attending: Coverage Notice Comment: NO PREFERENCE ON [facility] PROVIDER Last DP export: 05/30/18 1:32 Patient Name: TONIA MCCARTNEY Page [phone] at 1643 All edits/amendments must be made on the electronic document DICTATION DATE: 06/03/181642 THERAPEUTIC CONSULTANT: ALVARADO 06/03/181642 RPT#: [id number] DC DATE: STATUS: ADM IN [facility] [address] [place] [address] END OF REPORT
--- NOTE | ~2018-05-25 | MORECARE ---
CASE MANAGEMENT DISCHARGE SUMMARY PATIENT: TONIA MCCARTNEY UNIT: [id number] ADM DATE: 05/26/18 AGE: 57 : 60 SEX: M ROOM/BED: D.2111 AUTHOR: ROBIN,DOC PHYSICIAN: REFERRING PHYSICIAN: CL LOUISE MD DATE OF SERVICE: 06/03/18 Discharge Plan Patient Name: TONIA MCCARTNEY [facility] [facility] 1960 Planned Disposition: Inpatient Rehab Anticipated Discharge Date: 06/04/18 Discharge Date: Expected LOS: 9 Initial Reviewer: [email or web address] Initial Review Date: 05/30/2018 Generated: 06/03/18 5:52 pm Comments DCP- Discharge Planning Updated by [id number]: Jacob Carroll on 06/03/18 3:[address] Patient Name: TONIA MCCARTNEY Encounter No: [id number] : 1960 Primary Insurance: MEDICARE A & B Anticipated DC Date: 06-04-2018 Planned Disposition: Inpatient Rehab External Planned Provider: [facility] DCP follow-up note: CM RECEIVED ORDER FOR INPATIENT REHAB PRESCREENING, SPOKE TO PT IN ROOM, DISCUSSED AVAILABILITY OF REHAB SERVICES, PROVIDERS AND LOCATIONS. PT WOULD LIKE TO RETURN HOME SOON POSSIBLE WITH HOME HEALTH, REPORTS ABILITY FOR SISTER TO DRIVE HIM TO [place] FOR DR. DIA. PT SIGNED CHOICE FOR NO PREFERENCE ON HOME HEALTH PROVIDER BUT HAS NO PRIMARY DOCTOR FOR HOME HEALTH ORDERS. PT REPORTS HAVING CRUTCHES, WALKER, 4 WHEELED WALKER WITH SEAT AND WHEELCHAIR FROM FAMILY MEMBERS AT HOME BUT WOULD LIKE A WHEELCHAIR OF HIS OWN. PT HAS NO PREFERNECE ON PROVIDER FOR WHEELCHAIR. CM EXPLAINED TO PT THAT THERAPY WOULD EVALUATE PT AND PROVIDE RECOMMENDATIONS TO IF PT MIGHT SAFELY DISCHARGE HOME, PT STATES HE WILL PARTICIPATE WITH EVALUATION. IMPORTANT MESSAGE FROM MEDICARE PROVIDED AND DISCUSSED. PT STATES HE WILL CONSIDER INPATIENT REHAB AT [place] IF THERAPY RECOMMENDS IT TO HIM. CM SPOKE TO DR. EJAN BAPTISTE WHO REPORTS THAT PT IS READY TO DISCHARGE FROM HIS STANDPOINT, DR. JEAN BAPTISTE WILL CHANGE DRESSING TOMORROW AND PT IS TO BEAR NO WEIGHT ON HIS RIGHT FOOT. CM SPOKE TO JAD ORTIZ WHO CONSULTED WITH DR. ALANIS AND IF PT IS ABLE TO GO HOME, THEY WILL HAVE PT FOLLOW UP WITH DR. LOUISE NEXT WEEK AND PROVIDE HOME HEALTH PHYSICAL THERPY AND WHEELCHAIR ORDERS. CM SPOKE TO THERAPISTS WHO EVALUATED PT AND RECOMMENDS INPATIENT REHAB SERVICES FOR SAFE DISCHARGE. CM SPOKE TO PT WHO IS IN AGREEMENT. CM SPOKE TO DANY OF INPATIENT REHAB AND NOTIFIED OF ABOVE INFORMATION. CM WAITING INPATIENT PRESCREENING AND ADMISSION DETERMINATION FROM [facility]. Jacob Carroll, CASE MANAGEMENT DCP- Discharge Planning Updated by [id number]: Maria Del Carmen Peters on 05/30/18 1:[address] Patient Name: TONIA MCCARTNEY Admission Status: ER Accout number: [id number] Admission Date: 05-26-2018 : 1960 Admission Diagnosis:PAIN IN RIGHT FOOT Attending: CL LOUISE Current LOS: 4 Anticipated DC Date: Planned Disposition: Primary Insurance: MEDICARE A & B Discharge Planning Comments: CM MET WITH PATIENT ABOUT DC PLANNING/NEEDS. STATES MAY NEED WALKER OR WHEELCHAIR WHEN DC'D HOME. STATES FAMILY IS BUILDING HIM A RAMP AT HIS HOUSE. STATES HE LIVES AT HOME WITH HIS SISTER. MAY NEED HH FOR WOUND CARE AND PT. CM WILL FOLLOW AND ASSIST NEEDED WITH DC PLANNING NEEDS. IT IS STILL TOO EARLY TO DETERMINE WHAT HE MAY NEED AT TIME OF DC . Principal Archaeologist: Maria Del Carmen Peters DCPIA - Discharge Planning Initial Assessment Updated by [id number]: Maria Del Carmen Lorraine on 05/30/18 2:25 pm * Is the patient Alert and Oriented? Yes * How many steps to enter\exit or inside your home? RAMP * PCP SANG * Pharmacy [facility] IN [place] * Preadmission Environment Home with Family * ADLs Independent * Equipment None * List name and contact numbers for known caregivers / representatives who currently or will assist patient after discharge: SISTER HUTTON, * Community resources currently utilized None * Can the patient safely return to the preadmission environment? Yes * Has this patient been hospitalized within the prior 30 days at any hospital? No Coverage Notice Reviewer: [id number] - Jacob Carroll Notice Issued Date-Time: 06/03/2018 13:10 Notice Type: IM Discharge Notice Notice Delivered To: Patient Relationship to Patient: Full Stack Engineer Name: Delivery Method: HAND - Hand Delivered Margi Days: Prior Verbal Notification: Recipient Understood Notice: Yes Recipient Signature: Yes Med Rec Note Co-signed by Attending: Coverage Notice Comment: Reviewer: [id number] - Jacob Carroll Notice Issued Date-Time: 06/03/2018 13:10 Notice Type: Patient Choice Letter Notice Delivered To: Patient Relationship to Patient: Full Stack Engineer Name: Delivery Method: HAND - Hand Delivered Margi Days: Prior Verbal Notification: Recipient Understood Notice: Yes Recipient Signature: Yes Med Rec Note Co-signed by Attending: Coverage Notice Comment: NO PREFERENCE ON [facility] PROVIDER Last DP export: 06/03/18 3:43 Patient Name: BIBTONIA Page [phone] at 1652 All edits/amendments must be made on the electronic document DICTATION DATE: 06/03/181650 WIND TURBINE MECHANICAL ENGINEER: ALVARADO 06/03/181650 RPT#: [id number] DC DATE: STATUS: ADM IN [facility] [address] [place] [address] END OF REPORT
[~2018-05-25 23:20] MED LIST changes: +BAYER CHEWABLE81 MG PO; +HCTZ25 MG PO; +LIPITOR40 MG PO
[2018-05-26 00:20] LABS: BASOPHILS 0.8 % (0-2); HEMOGLOBIN 8.4 g/dL (13.5-17.5); IMMATURE GRANULOCYTES 0.6 % (0-5); LYMPHOCYTES 25.6 % (15-50); MCH 26.8 pg (26.0-34.0); MCHC 31.1 g/dL (31.0-37.0); MCV 86.3 fL (80.0-100.0); MEAN PLATELET VOLUME 9.5 fL (7.4-10.4); MONOCYTES 14.6 % (2-11); NEUTROPHILS 54.4 % (40-80); PLATELET COUNT 495 10x3/uL (130-400); RBC 3.13 10x6/uL (4.20-6.10); RDW 19.5 % (11.5-14.5); WBC 8.5 10x3/uL (4.8-10.8)
[2018-05-26 00:30] LABS: ALBUMIN 3.3 g/dL (3.4-5.0); ALKALINE PHOSPHATASE 83 U/L (46-116); ALT (SGPT) 8 U/L (10-68); BILIRUBIN - TOTAL 0.17 mg/dL (0.2-1.3); CALC OSMOLALITY 256 mosm/kg (275-300); CALCIUM 8.6 mg/dL (8.5-10.1); CHLORIDE - SERUM 95 mmol/L (98-107); CREATININE - SERUM 0.7 mg/dL (0.6-1.3); GLUCOSE 88 mg/dL (74-106); POTASSIUM - SERUM 4.2 mmol/L (3.5-5.1); PROTEIN - SERUM 8.2 g/dL (6.4-8.2); SODIUM 130 mmol/L (136-145); UREA NITROGEN 5 mg/dL (7-18); eGFR NON AFRICAN AMERICAN > 90 mL/min (90-120)
[2018-05-26 00:30] LABS: APPEARANCE CLEAR (CLEAR); BILIRUBIN NEGATIVE (NEGATIVE); COLOR STRAW (YELLOW); GLUCOSE NEGATIVE (NEGATIVE); KETONE NEGATIVE (NEGATIVE); NITRITE NEGATIVE (NEGATIVE); PROTEIN NEGATIVE (NEGATIVE); UROBILINOGEN NORMAL (NORMAL)
[2018-05-26 00:39] LABS: UDS - AMPHET NEGATIVE QUAL (NEGATIVE); UDS - BARB NEGATIVE QUAL (NEGATIVE); UDS - BENZO NEGATIVE QUAL (NEGATIVE); UDS - COCAINE NEGATIVE QUAL (NEGATIVE); UDS - OPIATE NEGATIVE QUAL (NEGATIVE); UDS - PCP NEGATIVE QUAL (NEGATIVE); UDS - THC NEGATIVE QUAL (NEGATIVE)
[2018-05-26 01:50] VITALS: BP 170/101
[2018-05-26 08:02] VITALS: BP 136/86
[2018-05-26 11:37] VITALS: BP 104/66
[2018-05-26 12:41] LABS: APTT 30.6 SECONDS (22.8-39.4); INR 1.11 (0.85-1.17); PROTIME 13.9 SECONDS (11.6-15.0)
[2018-05-26 12:53] LABS: % SATURATION 5 % (15-55); IRON 19 ug/dl (35-150); TOTAL IRON BIND CAPACITY 355 ug/dl (260-445); UNSAT IRON BIND CAPACITY 336 ug/dl (150-375)
[2018-05-26 12:58] LABS: MAGNESIUM - SERUM 1.8 mg/dL (1.8-2.4)
[2018-05-26 13:39] VITALS: Ht 165.1 cm; Wt 56.9 kg
[2018-05-26 16:52] VITALS: BP 119/80
[2018-05-26 20:00] VITALS: BP 141/71
[2018-05-27] VITALS: BP 129/74
[2018-05-27 04:00] VITALS: BP 159/84
[2018-05-27 06:11] LABS: BASOPHILS 0.4 % (0-2); EOSINOPHILS 3.6 % (0-7); HEMATOCRIT 23.6 % (42.0-54.0); IMMATURE GRANULOCYTES 0.2 % (0-5); LYMPHOCYTES 16.9 % (15-50); MCH 26.6 pg (26.0-34.0); MCHC 30.1 g/dL (31.0-37.0); MEAN PLATELET VOLUME 9.4 fL (7.4-10.4); MONOCYTES 13.3 % (2-11); NEUTROPHILS 65.6 % (40-80); PLATELET COUNT 437 10x3/uL (130-400); RBC 2.67 10x6/uL (4.20-6.10); RDW 19.7 % (11.5-14.5); WBC 8.3 10x3/uL (4.8-10.8)
[2018-05-27 06:27] LABS: HEMOGLOBIN 7.1 g/dL (13.5-17.5); MCV 88.4 fL (80.0-100.0)
[2018-05-27 07:06] LABS: C-REACTIVE PROTEIN 1.3 mg/dL (0.0-0.9); CALC OSMOLALITY 253 mosm/kg (275-300); CALCIUM 8.2 mg/dL (8.5-10.1); CHLORIDE - SERUM 95 mmol/L (98-107); CREATININE - SERUM 0.8 mg/dL (0.6-1.3); GLUCOSE 105 mg/dL (74-106); POTASSIUM - SERUM 4.1 mmol/L (3.5-5.1); SODIUM 128 mmol/L (136-145); UREA NITROGEN 5 mg/dL (7-18); eGFR NON AFRICAN AMERICAN > 90 mL/min (90-120)
[2018-05-27 08:04] LABS: ERYTHROCYTE SEDIMENTATION RATE 36 mm/hr (0-20)
[2018-05-27 08:38] VITALS: BP 158/94
[2018-05-27 09:17] LABS: FOLATE (FOLIC ACID) - SERUM 9.5 ng/mL (>3.0)
[2018-05-27 12:01] VITALS: BP 125/75
[2018-05-27 16:31] VITALS: BP 137/88
[2018-05-28] VITALS: BP 127/68
[2018-05-28 04:00] VITALS: BP 127/68
[2018-05-28 06:17] LABS: BASOPHILS 0.5 % (0-2); EOSINOPHILS 5.6 % (0-7); HEMATOCRIT 27.6 % (42.0-54.0); HEMOGLOBIN 8.9 g/dL (13.5-17.5); IMMATURE GRANULOCYTES 0.3 % (0-5); LYMPHOCYTES 25.6 % (15-50); MCH 27.7 pg (26.0-34.0); MCHC 32.2 g/dL (31.0-37.0); MEAN PLATELET VOLUME 9.4 fL (7.4-10.4); MONOCYTES 19.1 % (2-11); NEUTROPHILS 48.9 % (40-80); PLATELET COUNT 390 10x3/uL (130-400); RBC 3.21 10x6/uL (4.20-6.10); RDW 17.7 % (11.5-14.5); WBC 6.5 10x3/uL (4.8-10.8)
[2018-05-28 06:42] LABS: CALC OSMOLALITY 256 mosm/kg (275-300); CARBON DIOXIDE 27.6 mmol/L (21.0-32.0); CHLORIDE - SERUM 93 mmol/L (98-107); CREATININE - SERUM 0.9 mg/dL (0.6-1.3); GLUCOSE 99 mg/dL (74-106); POTASSIUM - SERUM 3.5 mmol/L (3.5-5.1); SODIUM 129 mmol/L (136-145); eGFR NON AFRICAN AMERICAN > 90 mL/min (90-120)
[2018-05-28 06:43] LABS: UREA NITROGEN 7 mg/dL (7-18)
[2018-05-28 08:06] VITALS: BP 127/68
[2018-05-28 11:14] VITALS: BP 134/69
[2018-05-28 15:02] VITALS: BP 118/68
[2018-05-28 20:00] VITALS: BP 134/72
[2018-05-29 04:00] VITALS: BP 124/73
[2018-05-29 06:48] LABS: HEMOGLOBIN 9.1 g/dL (13.5-17.5); LYMPHOCYTES 21.6 % (15-50); MCH 28.3 pg (26.0-34.0); MCHC 32.5 g/dL (31.0-37.0); MEAN PLATELET VOLUME 9.1 fL (7.4-10.4); NEUTROPHILS 56.6 % (40-80); PLATELET COUNT 411 10x3/uL (130-400); RBC 3.22 10x6/uL (4.20-6.10); RDW 17.8 % (11.5-14.5); WBC 7.7 10x3/uL (4.8-10.8)
[2018-05-29 06:54] LABS: CALCIUM 8.7 mg/dL (8.5-10.1); CARBON DIOXIDE 25.8 mmol/L (21.0-32.0); CHLORIDE - SERUM 94 mmol/L (98-107); CREATININE - SERUM 0.8 mg/dL (0.6-1.3); GLUCOSE 96 mg/dL (74-106); SODIUM 128 mmol/L (136-145); eGFR NON AFRICAN AMERICAN > 90 mL/min (90-120)
[2018-05-29 06:55] LABS: CALC OSMOLALITY 255 mosm/kg (275-300); POTASSIUM - SERUM 4.1 mmol/L (3.5-5.1); UREA NITROGEN 9 mg/dL (7-18)
[2018-05-29 20:00] VITALS: BP 125/69
[2018-05-30 00:10] VITALS: BP 136/83
[2018-05-30 04:00] VITALS: BP 132/74
[2018-05-30 05:45] LABS: BASOPHILS 0.2 % (0-2); EOSINOPHILS 0.2 % (0-7); HEMATOCRIT 24.3 % (42.0-54.0); HEMOGLOBIN 7.8 g/dL (13.5-17.5); IMMATURE GRANULOCYTES 0.3 % (0-5); LYMPHOCYTES 11.6 % (15-50); MCH 27.8 pg (26.0-34.0); MCHC 32.1 g/dL (31.0-37.0); MCV 86.5 fL (80.0-100.0); MEAN PLATELET VOLUME 9.8 fL (7.4-10.4); MONOCYTES 16.4 % (2-11); NEUTROPHILS 71.3 % (40-80); PLATELET COUNT 398 10x3/uL (130-400); RBC 2.81 10x6/uL (4.20-6.10); RDW 17.8 % (11.5-14.5)
[2018-05-30 05:47] LABS: WBC 9.8 10x3/uL (4.8-10.8)
[2018-05-30 06:01] LABS: CALC OSMOLALITY 259 mosm/kg (275-300); CALCIUM 8.7 mg/dL (8.5-10.1); CARBON DIOXIDE 23.1 mmol/L (21.0-32.0); CHLORIDE - SERUM 95 mmol/L (98-107); GLUCOSE 130 mg/dL (74-106); POTASSIUM - SERUM 3.6 mmol/L (3.5-5.1); SODIUM 129 mmol/L (136-145); UREA NITROGEN 10 mg/dL (7-18); eGFR NON AFRICAN AMERICAN 82 mL/min (90-120)
[2018-05-30 07:40] VITALS: BP 124/67
[2018-05-30 10:40] VITALS: BP 155/78
[2018-05-30 14:34] VITALS: BP 103/62
[2018-05-30 20:00] VITALS: BP 133/69
[2018-05-31 00:06] VITALS: BP 143/86
[2018-05-31 04:00] VITALS: BP 134/76
[2018-05-31 05:15] LABS: BASOPHILS 0.7 % (0-2); EOSINOPHILS 3.7 % (0-7); HEMATOCRIT 27.1 % (42.0-54.0); HEMOGLOBIN 8.5 g/dL (13.5-17.5); IMMATURE GRANULOCYTES 0.2 % (0-5); MCH 27.8 pg (26.0-34.0); MCHC 31.4 g/dL (31.0-37.0); MEAN PLATELET VOLUME 9.6 fL (7.4-10.4); MONOCYTES 13.6 % (2-11); NEUTROPHILS 63.8 % (40-80); PLATELET COUNT 461 10x3/uL (130-400); RBC 3.06 10x6/uL (4.20-6.10); RDW 18.3 % (11.5-14.5); WBC 10.3 10x3/uL (4.8-10.8)
[2018-05-31 05:25] LABS: MCV 88.6 fL (80.0-100.0)
[2018-05-31 05:31] LABS: CALC OSMOLALITY 257 mosm/kg (275-300); CHLORIDE - SERUM 94 mmol/L (98-107); CREATININE - SERUM 0.9 mg/dL (0.6-1.3); GLUCOSE 87 mg/dL (74-106); POTASSIUM - SERUM 3.5 mmol/L (3.5-5.1); SODIUM 130 mmol/L (136-145); UREA NITROGEN 8 mg/dL (7-18); eGFR NON AFRICAN AMERICAN > 90 mL/min (90-120)
[2018-05-31 08:37] VITALS: BP 106/77
[2018-05-31 13:33] VITALS: BP 146/89
[2018-05-31 14:08] LABS: AEROBE ID Final report (()); RESULT 1 Proteus mirabilis (())
[2018-05-31 16:04] VITALS: BP 167/87
[2018-05-31 20:19] VITALS: BP 181/90
[2018-06-01] VITALS: BP 168/78
[2018-06-01 04:00] VITALS: BP 123/84
[2018-06-01 04:57] LABS: BASOPHILS 0.6 % (0-2); EOSINOPHILS 5.3 % (0-7); HEMATOCRIT 25.1 % (42.0-54.0); HEMOGLOBIN 7.8 g/dL (13.5-17.5); IMMATURE GRANULOCYTES 0.4 % (0-5); LYMPHOCYTES 18.5 % (15-50); MCH 27.5 pg (26.0-34.0); MCHC 31.1 g/dL (31.0-37.0); MCV 88.4 fL (80.0-100.0); MEAN PLATELET VOLUME 9.7 fL (7.4-10.4); MONOCYTES 14.3 % (2-11); NEUTROPHILS 60.9 % (40-80); PLATELET COUNT 444 10x3/uL (130-400); RBC 2.84 10x6/uL (4.20-6.10); RDW 18.2 % (11.5-14.5)
[2018-06-01 05:12] LABS: CALC OSMOLALITY 256 mosm/kg (275-300); CALCIUM 8.5 mg/dL (8.5-10.1); CARBON DIOXIDE 27.9 mmol/L (21.0-32.0); CHLORIDE - SERUM 94 mmol/L (98-107); CREATININE - SERUM 0.9 mg/dL (0.6-1.3); GLUCOSE 107 mg/dL (74-106); POTASSIUM - SERUM 3.7 mmol/L (3.5-5.1); SODIUM 129 mmol/L (136-145); UREA NITROGEN 6 mg/dL (7-18); eGFR NON AFRICAN AMERICAN > 90 mL/min (90-120)
[2018-06-01 08:50] VITALS: BP 141/79
[2018-06-01 11:23] VITALS: BP 130/79
[2018-06-01 15:33] VITALS: BP 118/71
[2018-06-01 20:34] VITALS: BP 115/67
[2018-06-02 01:25] VITALS: BP 142/82
[2018-06-02 05:03] VITALS: BP 149/82
[2018-06-02 05:48] LABS: BASOPHILS 0.8 % (0-2); EOSINOPHILS 5.3 % (0-7); IMMATURE GRANULOCYTES 0.3 % (0-5); LYMPHOCYTES 20.6 % (15-50); MCH 27.8 pg (26.0-34.0); MCHC 32.9 g/dL (31.0-37.0); MEAN PLATELET VOLUME 9.3 fL (7.4-10.4); MONOCYTES 18.7 % (2-11); NEUTROPHILS 54.3 % (40-80); PLATELET COUNT 404 10x3/uL (130-400); RDW 17.5 % (11.5-14.5)
[2018-06-02 05:55] LABS: ALBUMIN 2.6 g/dL (3.4-5.0); ALKALINE PHOSPHATASE 72 U/L (46-116); ALT (SGPT) 9 U/L (10-68); BILIRUBIN - TOTAL 0.33 mg/dL (0.2-1.3); CALC OSMOLALITY 257 mosm/kg (275-300); CALCIUM 8.8 mg/dL (8.5-10.1); CARBON DIOXIDE 26.2 mmol/L (21.0-32.0); CHLORIDE - SERUM 95 mmol/L (98-107); CREATININE - SERUM 0.7 mg/dL (0.6-1.3); GLUCOSE 89 mg/dL (74-106); MAGNESIUM - SERUM 1.7 mg/dL (1.8-2.4); POTASSIUM - SERUM 3.7 mmol/L (3.5-5.1); PROTEIN - SERUM 7.8 g/dL (6.4-8.2); SODIUM 130 mmol/L (136-145); UREA NITROGEN 7 mg/dL (7-18); eGFR NON AFRICAN AMERICAN > 90 mL/min (90-120)
[2018-06-02 06:14] LABS: HEMOGLOBIN 10.4 g/dL (13.5-17.5); RBC 3.74 10x6/uL (4.20-6.10); WBC 7.4 10x3/uL (4.8-10.8)
[2018-06-02 06:15] LABS: HEMATOCRIT 31.6 % (42.0-54.0); MCV 84.5 fL (80.0-100.0)
[2018-06-02 09:02] VITALS: BP 201/110
[2018-06-02 11:20] VITALS: BP 146/86
[2018-06-02 15:24] VITALS: BP 153/77
[2018-06-02 20:26] VITALS: BP 165/85
[2018-06-03 01:01] VITALS: BP 160/100
[2018-06-03 04:48] VITALS: BP 162/100
[2018-06-03 05:44] LABS: HEMATOCRIT 30.1 % (42.0-54.0); HEMOGLOBIN 9.9 g/dL (13.5-17.5); MCHC 32.9 g/dL (31.0-37.0); MEAN PLATELET VOLUME 9.5 fL (7.4-10.4); PLATELET COUNT 420 10x3/uL (130-400); RBC 3.54 10x6/uL (4.20-6.10); RDW 17.3 % (11.5-14.5); WBC 8.6 10x3/uL (4.8-10.8)
[2018-06-03 06:07] LABS: ALBUMIN 2.6 g/dL (3.4-5.0); ALKALINE PHOSPHATASE 61 U/L (46-116); ALT (SGPT) 8 U/L (10-68); BILIRUBIN - TOTAL 0.42 mg/dL (0.2-1.3); CALCIUM 8.7 mg/dL (8.5-10.1); CARBON DIOXIDE 23.7 mmol/L (21.0-32.0); CHLORIDE - SERUM 93 mmol/L (98-107); CREATININE - SERUM 0.8 mg/dL (0.6-1.3); GLUCOSE 103 mg/dL (74-106); MAGNESIUM - SERUM 1.7 mg/dL (1.8-2.4); PROTEIN - SERUM 7.8 g/dL (6.4-8.2); SODIUM 129 mmol/L (136-145); eGFR NON AFRICAN AMERICAN > 90 mL/min (90-120)
[2018-06-03 06:18] LABS: CALC OSMOLALITY 257 mosm/kg (275-300); POTASSIUM - SERUM 3.1 mmol/L (3.5-5.1); UREA NITROGEN 9 mg/dL (7-18)
[2018-06-03 08:43] LABS: ANISOCYTOSIS OCC; EOSINOPHILS 3 % (0-7); LYMPHOCYTES 21 % (15-50); MONOCYTES 20 % (2-11); NEUTROPHILS 51 % (40-80); PLATELET ESTIMATE INCREASED; ROULEAUX OCC
[2018-06-03 12:14] VITALS: BP 139/72
[2018-06-03 16:59] VITALS: BP 133/81
[2018-06-04 04:00] VITALS: BP 119/87
[2018-06-04 04:55] LABS: BASOPHILS 0.8 % (0-2); EOSINOPHILS 7.2 % (0-7); HEMOGLOBIN 9.4 g/dL (13.5-17.5); IMMATURE GRANULOCYTES 0.6 % (0-5); LYMPHOCYTES 21.7 % (15-50); MCH 27.9 pg (26.0-34.0); MCHC 32.4 g/dL (31.0-37.0); MCV 86.1 fL (80.0-100.0); MEAN PLATELET VOLUME 9.2 fL (7.4-10.4); MONOCYTES 18.8 % (2-11); NEUTROPHILS 50.9 % (40-80); PLATELET COUNT 414 10x3/uL (130-400); RBC 3.37 10x6/uL (4.20-6.10); RDW 17.2 % (11.5-14.5); WBC 7.9 10x3/uL (4.8-10.8)
[2018-06-04 05:29] LABS: ALBUMIN 2.5 g/dL (3.4-5.0); ALKALINE PHOSPHATASE 60 U/L (46-116); ALT (SGPT) 7 U/L (10-68); BILIRUBIN - TOTAL 0.26 mg/dL (0.2-1.3); CALC OSMOLALITY 255 mosm/kg (275-300); CALCIUM 8.9 mg/dL (8.5-10.1); CARBON DIOXIDE 22.5 mmol/L (21.0-32.0); CHLORIDE - SERUM 95 mmol/L (98-107); CREATININE - SERUM 0.8 mg/dL (0.6-1.3); GLUCOSE 116 mg/dL (74-106); MAGNESIUM - SERUM 1.7 mg/dL (1.8-2.4); POTASSIUM - SERUM 3.4 mmol/L (3.5-5.1); PROTEIN - SERUM 7.6 g/dL (6.4-8.2); SODIUM 128 mmol/L (136-145); UREA NITROGEN 7 mg/dL (7-18); eGFR NON AFRICAN AMERICAN > 90 mL/min (90-120)
[2018-06-04 10:40] VITALS: BP 150/86
[2018-06-04 12:00] VITALS: BP 158/86
[2018-06-04] MEDS ORDERED: Nicoderm [PBKC] TRANSDERM (15:29)
[2018-06-04] MEDS ORDERED: NORCO-10 PO (15:29)
[2018-06-04] MEDS ORDERED: HYDRALAZINE20 MG/ML IV (15:29)
[2018-06-04] MEDS ORDERED: FLORAJEN3 CAPS460 MG PO (15:30)
[2018-06-04] MEDS ORDERED: CARAFATE1 G/10 ML PO (15:30)
[2018-06-04] MEDS ORDERED: ONDANSETRON4 MG/2 M3 IV (15:30)
[2018-06-04 15:32] VITALS: BP 149/96
[2018-06-04] MEDS ORDERED: ZOSYN 3.3753.375 G1 IV (15:35)
[2018-06-04] MEDS ORDERED: VIBRAMYCIN 100100 MG PO (15:35)
[2018-06-04 17:12] LABS: AEROBE ID Final report (()); RESULT 1 Morganella morganii (())
== END 2018-06-04 18:25 | DRG 240 ==
LOC: D.ER 23:20 → D.M2 05-26 01:42
PROVIDERS: Family Medicine; Internal Medicine Nephrology; Podiatrist Foot & Ankle Surgery; Student in an Organized Health Care Education/Training Program
PROC: 0Y6M0Z9 Detachment at Right Foot, Partial 1st Ray, Open Approach (ICD-10-PCS; 2018-05-29)
PROC: 0J9Q0ZZ Drainage of Right Foot Subcutaneous Tissue and Fascia, Open Approach (ICD-10-PCS; principal; 2018-05-29 08:00)
PROC: 0HBMXZZ Excision of Right Foot Skin, External Approach (ICD-10-PCS; 2018-06-02)
PROC: 0HQMXZZ Repair Right Foot Skin, External Approach (ICD-10-PCS; 2018-06-02)
DX: E11.52 Type 2 diabetes mellitus with diabetic peripheral angiopathy with gangrene (principal); I96 Gangrene, not elsewhere classified; L03.115 Cellulitis of right lower limb; E87.1 Hypo-osmolality and hyponatremia; F17.213 Nicotine dependence, cigarettes, with withdrawal; I10 Essential (primary) hypertension; D50.9 Iron deficiency anemia, unspecified; B19.20 Unspecified viral hepatitis C without hepatic coma; F10.20 Alcohol dependence, uncomplicated; R00.0 Tachycardia, unspecified

== ENCOUNTER 2018-06-04 16:56 | Inpatient (IN) | payer MEDICARE ==
[~2018-06-04] VITALS: Ht 165.1 cm; Wt 59.0 kg
--- NOTE | ~2018-06-04 | RHP ---
PATIENT: TONIA MCCARTNEY MEDICAL RECORD: [id number] ACCOUNT: [id number] LOCATION:[facility] : 60 ADMISSION DATE: 06/04/18 REHABILITATION HISTORY AND PHYSICAL EXAMINATION POST ADMISSION PHYSICIAN EXAMINATION DATE OF ADMISSION: 06/04/2018. ADMITTING DIAGNOSES: Cellulitis and debility secondary to peripheral vascular disease. HISTORY OF PRESENT ILLNESS: The patient admitted to the inpatient rehab secondary to debility from peripheral vascular disease and cellulitis. He is a 57-year-old gentleman with a history of hepatitis C, severe peripheral vascular disease, psoriasis, and chronic pain. He presented to the Emergency Room with complaints of severe pain in his right lower extremity, swelling in his right leg and foot. He also had a pretty severe sore underneath his right great toe that had been going on for about a month. He had a recent evaluation for his peripheral vascular disease. An aortofemoral runoff study showed no significant blood flow below the knees. He was attempting to treat the wound at home, but had not been successful. He had been seen by Dr. Soler, our ID doctor and followed during his acute hospital stay. He has also been seen by a branch operation evaluation manager and underwent a right great toe amputation. He had been started on IV antibiotic therapy, IV pain meds, currently on supplemental O2. He has received 4 units of packed red blood cells during his hospitalization. He is nonweightbearing to his right foot. He has impaired mobility. He is high risk secondary to the nonweightbearing status. He has got problems with his balance, weakness. He does have steps to get into his home. He has been having increasing pain, self-care deficit. These are all barriers to discharge at this time. He lives at home with his sister, was independent with ADLs and mobility. He is currently independent to mod assist with his ADLs and mod assist to total assist with mobility. He would like to return home with his sister, hopefully get back to his prior level of functioning or better if possible. COMORBIDITIES: In this patient include cellulitis, atherosclerotic vascular disease, peripheral vascular disease, chronic alcohol dependence, acute nicotine dependence, hypertension, iron deficient anemia. PAST MEDICAL HISTORY: Significant for hypertension, peripheral vascular disease, hepatitis, psoriasis, chronic back pain, alcohol abuse and tobacco use. PAST SURGICAL HISTORY: Includes foot, arm and extremity surgery and a plate to his leg. ALLERGIES: No known drug allergies. CURRENT MEDICATIONS: Include a Nicoderm patch. He is on Zestril 10 mg daily, Floranex 460 mg daily, atorvastatin 40 mg daily, aspirin chewable 81 mg daily, vibramycin 100 mg b.i.d., Carafate 1 gram q.a.c. and q.h.s., Zosyn 3.375 grams q.8 hours, Zofran p.r.n. nausea and vomiting, [place] 1 tab q.6 hours p.r.n. pain. He is on hydralazine if needed for systolic blood pressure greater than 170 or diastolic blood pressure greater than 105. He is on Flexeril 5 mg t.i.d. p.r.n. and Pletal 50 mg b.i.d. HABITS: Does have a history of alcohol and tobacco use. HISTORY AND PHYSICAL [id number] TONIA MCCARTNEY FAMILY HISTORY: Noncontributory. SOCIAL HISTORY: The patient hopes to return back home and get back to his prior level of functioning. REVIEW OF SYSTEMS: GENERAL: Does complain of weakness and fatigue. HEENT: Denies cold, cough, or congestion. CARDIOVASCULAR: Denies chest pain. PHYSICAL EXAMINATION: VITAL SIGNS: Stable, afebrile. GENERAL: Elderly gentleman in no acute distress, alert upon exam. HEENT: Normocephalic and atraumatic. Mucosa moist. NECK: Supple. No lymphadenopathy. LUNGS: Clear at this time. HEART: Regular rate and rhythm. ABDOMEN: Benign. EXTREMITIES: Consistent with a right great toe amputation and does have noted changes consistent with peripheral vascular disease including lack of hair to this region and cold extremities. NEUROLOGIC: The patient does have noted weakness. LABORATORY DATA: White count of 6.5, H&H of 8.8 and 27.9, and platelet count is 410. Sodium 131, potassium 4.0, BUN and creatinine of 5 and 0.6, and blood sugar was noted to be 103. ASSESSMENT: This is a 57-year-old gentleman admitted to the rehab with a working diagnosis of cellulitis and peripheral vascular disease status post right great toe amputation. The patient has potential to make improvement. We instituted the following multidisciplinary therapies including but not limited to physical, occupational, respiratory, speech, nutritional services, prosthetics and orthotics. Given his complex medical condition and risks for more complications, rehabilitation services cannot be provided at a low level of care such as fdc facility. PLAN: 1. Admit to [facility] for intensive inpatient therapy to include the following disciplines: A. Physical therapy to improve gait, all transfer skills and bed mobility to a modified independent level. B. Occupational therapy to improve activities of daily living to a modified independent level. C. Case management to assist with discharge planning and placement options. D. Nutrition to assist with nutritional needs. 2. The patient's current medication and medical care will be continued. 3. The patient will be placed on current medications. 4. We will go ahead and hopefully get his balance back, this will be difficult secondary to his nonweightbearing status at this time. 5. I am going to follow up in the a.m. TRANSINT:[id number] Voice Confirmation ID: [id number] DOCUMENT ID: [id number] HISTORY AND PHYSICAL [id number] BIBTONIA notes whether there has been none or any medical/functional change since admission: - No change since preadmission screen. BRIDGET attests patient continues to be appropriate for IRF: - Continues to be appropriate. GOOD MEEK MD at 0905 CC: [id number] DICTATION DATE: 06/05/18911 BORDER GUARD: 06/05/18 0939 ADM IN [place] [id number] [place] [id number]
[~2018-06-04 16:56] MED LIST changes: +FLORAJEN3 CAPS460 MG PO; +HYDRALAZINE20 MG/ML IV; +NORCO-10 PO; +Nicoderm [PBKC] TRANSDERM; +ONDANSETRON4 MG/2 M3 IV; +VIBRAMYCIN 100100 MG PO; +ZOSYN 3.3753.375 G1 IV
[2018-06-04 19:00] VITALS: BP 135/74
[2018-06-04 19:56] VITALS: BP 135/74; BMI 21.6
[2018-06-05 06:17] LABS: BASOPHILS 1.4 % (0-2); EOSINOPHILS 9.6 % (0-7); HEMATOCRIT 27.9 % (42.0-54.0); HEMOGLOBIN 8.8 g/dL (13.5-17.5); IMMATURE GRANULOCYTES 0.3 % (0-5); LYMPHOCYTES 23.3 % (15-50); MCH 27.4 pg (26.0-34.0); MCHC 31.5 g/dL (31.0-37.0); MCV 86.9 fL (80.0-100.0); MEAN PLATELET VOLUME 8.9 fL (7.4-10.4); MONOCYTES 19.6 % (2-11); NEUTROPHILS 45.8 % (40-80); PLATELET COUNT 410 10x3/uL (130-400); RBC 3.21 10x6/uL (4.20-6.10); RDW 17.4 % (11.5-14.5); WBC 6.5 10x3/uL (4.8-10.8)
[2018-06-05 06:36] LABS: CALC OSMOLALITY 259 mosm/kg (275-300); CARBON DIOXIDE 22.6 mmol/L (21.0-32.0); CHLORIDE - SERUM 99 mmol/L (98-107); CREATININE - SERUM 0.6 mg/dL (0.6-1.3); GLUCOSE 103 mg/dL (74-106); SODIUM 131 mmol/L (136-145); eGFR NON AFRICAN AMERICAN > 90 mL/min (90-120)
[2018-06-05 06:37] LABS: UREA NITROGEN 5 mg/dL (7-18)
[2018-06-05 08:00] VITALS: BP 159/79
[2018-06-05 19:15] VITALS: BP 173/77
[2018-06-06 08:00] VITALS: BP 152/77
[2018-06-06 20:00] VITALS: BP 164/81
[2018-06-07 08:00] VITALS: BP 138/84
[2018-06-07 19:30] VITALS: BP 153/66
[2018-06-08 07:02] LABS: BASOPHILS 3.3 % (0-2); EOSINOPHILS 11.9 % (0-7); HEMATOCRIT 29.3 % (42.0-54.0); HEMOGLOBIN 8.9 g/dL (13.5-17.5); IMMATURE GRANULOCYTES 0.5 % (0-5); LYMPHOCYTES 23.8 % (15-50); MCH 27.5 pg (26.0-34.0); MCHC 30.4 g/dL (31.0-37.0); MCV 90.4 fL (80.0-100.0); MEAN PLATELET VOLUME 9.9 fL (7.4-10.4); MONOCYTES 17.8 % (2-11); NEUTROPHILS 42.7 % (40-80); PLATELET COUNT 338 10x3/uL (130-400); RBC 3.24 10x6/uL (4.20-6.10); RDW 17.6 % (11.5-14.5); WBC 6.4 10x3/uL (4.8-10.8)
[2018-06-08 07:17] LABS: CALC OSMOLALITY 265 mosm/kg (275-300); CALCIUM 8.8 mg/dL (8.5-10.1); CARBON DIOXIDE 25.3 mmol/L (21.0-32.0); CHLORIDE - SERUM 100 mmol/L (98-107); CREATININE - SERUM 0.7 mg/dL (0.6-1.3); GLUCOSE 94 mg/dL (74-106); POTASSIUM - SERUM 3.5 mmol/L (3.5-5.1); SODIUM 134 mmol/L (136-145); UREA NITROGEN 6 mg/dL (7-18); eGFR NON AFRICAN AMERICAN > 90 mL/min (90-120)
[2018-06-08 08:00] VITALS: BP 159/77
[2018-06-08 10:43] VITALS: Ht 165.1 cm; Wt 59.0 kg
[2018-06-08 21:19] VITALS: BP 170/86
[2018-06-09 08:26] VITALS: BP 151/87
[2018-06-09 19:00] VITALS: BP 151/81
[2018-06-10 07:03] LABS: BASOPHILS 2.1 % (0-2); EOSINOPHILS 12.8 % (0-7); HEMATOCRIT 27.9 % (42.0-54.0); HEMOGLOBIN 8.6 g/dL (13.5-17.5); IMMATURE GRANULOCYTES 0.3 % (0-5); MCH 27.3 pg (26.0-34.0); MCHC 30.8 g/dL (31.0-37.0); MCV 88.6 fL (80.0-100.0); MEAN PLATELET VOLUME 9.1 fL (7.4-10.4); MONOCYTES 14.1 % (2-11); NEUTROPHILS 44.7 % (40-80); RBC 3.15 10x6/uL (4.20-6.10); RDW 17.4 % (11.5-14.5)
[2018-06-10 07:05] LABS: PLATELET COUNT 517 10x3/uL (130-400)
[2018-06-10 07:09] LABS: CALC OSMOLALITY 267 mosm/kg (275-300); CALCIUM 8.9 mg/dL (8.5-10.1); CARBON DIOXIDE 25.3 mmol/L (21.0-32.0); CHLORIDE - SERUM 101 mmol/L (98-107); CREATININE - SERUM 0.7 mg/dL (0.6-1.3); GLUCOSE 100 mg/dL (74-106); POTASSIUM - SERUM 3.4 mmol/L (3.5-5.1); SODIUM 135 mmol/L (136-145); UREA NITROGEN 6 mg/dL (7-18); eGFR NON AFRICAN AMERICAN > 90 mL/min (90-120)
[2018-06-10 08:00] VITALS: BP 154/82
[2018-06-10] MEDS ORDERED: NORCO-10 PO (09:04)
== END 2018-06-10 15:59 | disposition home health service (06) | DRG 948 ==
LOC: D.REHAB 16:56
PROVIDERS: Emergency Medicine
DX: R53.81 Other malaise (principal); L03.115 Cellulitis of right lower limb; I70.261 Atherosclerosis of native arteries of extremities with gangrene, right leg; F10.20 Alcohol dependence, uncomplicated; F17.200 Nicotine dependence, unspecified, uncomplicated; D50.9 Iron deficiency anemia, unspecified; I10 Essential (primary) hypertension; I70.209 Unspecified atherosclerosis of native arteries of extremities, unspecified extremity; Z89.411 Acquired absence of right great toe; B19.20 Unspecified viral hepatitis C without hepatic coma

== ENCOUNTER → 2018-07-10 14:10 | Outpatient (CLI) | payer MEDICARE ==
[2018-06-08 10:43] VITALS: BMI 21.6
== END | disposition home or self-care (01) ==
LOC: D.CT 14:10
DX: I70.213 Atherosclerosis of native arteries of extremities with intermittent claudication, bilateral legs (principal); I96 Gangrene, not elsewhere classified

== ENCOUNTER 2018-07-16 12:37 | Emergency (ER) | payer MEDICARE ==
[~2018-07-16] VITALS: Ht 165.1 cm; Wt 61.4 kg
[2018-07-16 12:46] VITALS: Ht 165.1 cm; Wt 61.4 kg
[2018-07-16 14:45] LABS: BASOPHILS 0.6 % (0-2); EOSINOPHILS 1.1 % (0-7); HEMATOCRIT 25.3 % (42.0-54.0); IMMATURE GRANULOCYTES 0.3 % (0-5); LYMPHOCYTES 16.5 % (15-50); MCH 26.5 pg (26.0-34.0); MCHC 31.6 g/dL (31.0-37.0); MCV 83.8 fL (80.0-100.0); MEAN PLATELET VOLUME 8.7 fL (7.4-10.4); MONOCYTES 16.9 % (2-11); NEUTROPHILS 64.6 % (40-80); PLATELET COUNT 487 10x3/uL (130-400); RBC 3.02 10x6/uL (4.20-6.10); RDW 17.7 % (11.5-14.5); WBC 6.4 10x3/uL (4.8-10.8)
[2018-07-16 15:08] LABS: ALKALINE PHOSPHATASE 102 U/L (46-116); ALT (SGPT) 12 U/L (10-68); BILIRUBIN - TOTAL 0.22 mg/dL (0.2-1.3); C-REACTIVE PROTEIN 3.3 mg/dL (0.0-0.9); CALC OSMOLALITY 253 mosm/kg (275-300); CALCIUM 8.5 mg/dL (8.5-10.1); CARBON DIOXIDE 27.5 mmol/L (21.0-32.0); CHLORIDE - SERUM 92 mmol/L (98-107); CREATINE KINASE 112 UL (21-232); CREATININE - SERUM 0.7 mg/dL (0.6-1.3); GLUCOSE 104 mg/dL (74-106); POTASSIUM - SERUM 4.4 mmol/L (3.5-5.1); PROTEIN - SERUM 8.2 g/dL (6.4-8.2); SODIUM 128 mmol/L (136-145); UREA NITROGEN 3 mg/dL (7-18); eGFR NON AFRICAN AMERICAN > 90 mL/min (90-120)
[2018-07-16] MEDS ORDERED: NORCO 10-325 TA1 TAB PO (16:18)
[2018-07-16 16:30] VITALS: BP 155/86
== END 2018-07-16 16:30 | disposition home or self-care (01) ==
LOC: D.ER 12:37
PROVIDERS: Family Medicine
DX: G89.18 Other acute postprocedural pain (principal); D64.9 Anemia, unspecified; I10 Essential (primary) hypertension; I73.9 Peripheral vascular disease, unspecified; F17.200 Nicotine dependence, unspecified, uncomplicated

== ENCOUNTER 2018-07-21 22:33 | Inpatient (IN) | payer MEDICARE ==
[~2018-07-21] VITALS: Ht 165.1 cm; Wt 63.6 kg
--- NOTE | ~2018-07-21 | MORECARE ---
CASE MANAGEMENT DISCHARGE SUMMARY PATIENT: TONIA MCCARTNEY UNIT: [id number] ADM DATE: 07/21/18 AGE: 58 : 60 SEX: M ROOM/BED: D.2203 AUTHOR: ROBIN,DOC PHYSICIAN: REFERRING PHYSICIAN: CL LOUISE MD DATE OF SERVICE: 07/30/18 Discharge Plan Patient Name: TONIA MCCARTNEY Facility: [facility]:[place] : 1960 Planned Disposition: Home with Home Health Anticipated Discharge Date: Discharge Date: 07/29/2018 Expected LOS: 0 Initial Reviewer: [email or web address] Initial Review Date: 07/22/2018 Generated: 07/30/18 1:31 pm Comments DCP- Discharge Planning Updated by [email or web address]: Jennifer Bagley on 07/29/18 12:[address] Received discharge order, he is in agreement to discharge to inpatient rehab at [facility]. I asked if I could call his son or sister and he states he is calling his son, because he needs clothes brought to the hospital. CM will continue to follow and assist with discharge planning/needs. DCP- Discharge Planning Updated by [email or web address]: Carmelina Martin on 07/26/18 5:[address] PATIENT NOTED TO HAVE FEVER TODAY. HAS REPORT OF POSITIVE BLOOD CULTURES. RECEIVING TRIPLE IVAB THERAPY. POD 2 RIGHT BKA / WOUND INFECTION/ NONHEALING SURGICAL WOUND/ GANGRENE. CM TO FOLLOW. DCP- Discharge Planning Updated by [email or web address]: Carmelina Martin on 07/26/18 5:[address] CM RECEIVED A REQUEST TO CONTACT THE PATIENT' SON REGARDING A SKILLED STAY AT [facility]. DUE TO NUMBER OF DISCHARGES THIS WEEKEND UNABLE TO CALL THE SON UNTIL THIS PM. NO ANSWER. LEFT A VOICE MAIL WITH MY CONTACT PHONE NUMBER. DCP- Discharge Planning Updated by [email or web address]: Ling Morley on 07/23/18 12:[address] Patient Name: TONIA MCCARTNEY Admission Status: ER Accout number: [id number] Admission Date: 07-21-2018 : 1960 Admission Diagnosis: Attending: CL LOUISE Current LOS: 2 Anticipated DC Date: Planned Disposition: Home with Home Health Primary Insurance: MEDICARE A & B Discharge Planning Comments: CM met with patient to assess discharge planning needs. Patient stated that he lives with his sister where he plans to return when he is discharged. He has home health, but could not remember the name. The company is out of [place] He has a walker and a wheelchair at home. He denies any needs at this time. CM will continue to follow and assist with DC planning Certified Phlebotomist: Ling Morley DCPIA - Discharge Planning Initial Assessment Updated by [email or web address]: Ling Morley on 07/23/18 1:35 pm * Is the patient Alert and Oriented? Yes * How many steps to enter\exit or inside your home? * PCP [facility] * Pharmacy [facility] * Preadmission Environment Home with Family * ADLs Independent * Equipment Rolling Walker Walker * List name and contact numbers for known caregivers / representatives who currently or will assist patient after discharge: ANNI (SISTER) [phone] * Verbal permission to speak to the caregivers and representatives has been obtained from the patient. N/A * Community resources currently utilized Home Health * Please name any agencies selected above. [facility] (COULD NOT REMEMBER THE NAME) * Additional services required to return to the preadmission environment? No * Can the patient safely return to the preadmission environment? Yes * Has this patient been hospitalized within the prior 30 days at any hospital? No Coverage Notice Reviewer: [email or web address] Natasha Bagley Notice Issued Date-Time: 07/29/2018 13:14 Notice Type: IM Discharge Notice Notice Delivered To: Patient Relationship to Patient: Self Wireless Sales Consultant Name: Delivery Method: HAND - Hand Delivered Margi Days: Prior Verbal Notification: Recipient Understood Notice: Yes Recipient Signature: Yes Med Rec Note Co-signed by Attending: Coverage Notice Comment: IMM signed, copy given, original placed in MR Last DP export: 07/29/18 12:19 Patient Name: BIBTONIA Page [phone] at 1231 All edits/amendments must be made on the electronic document DICTATION DATE: 07/30/18 1230 MANAGER MOUNTAIN: ALVARADO 07/30/18 1230 RPT#: [id number] DC DATE:07/29/18 STATUS: DIS IN [facility] [address] [place] [address] END OF REPORT
--- NOTE | ~2018-07-21 | MORECARE ---
CASE MANAGEMENT DISCHARGE SUMMARY PATIENT: TONIA MCCARTNEY UNIT: [id number] ADM DATE: 07/21/18 AGE: 58 : 60 SEX: M ROOM/BED: D.2203 AUTHOR: JACI KELLY PHYSICIAN: REFERRING PHYSICIAN: CL LOUISE MD DATE OF SERVICE: 07/26/18 Discharge Plan Patient Name: TONIA MCCARTNEY Facility: [facility]:[place] : 1960 Planned Disposition: Home with Home Health Anticipated Discharge Date: Discharge Date: Expected LOS: Initial Reviewer: [email or web address] Initial Review Date: 07/22/2018 Generated: 07/26/18 7:14 pm Comments DCP- Discharge Planning Updated by [email or web address]: Carmelina Martin on 07/26/18 5:[address] CM RECEIVED A REQUEST TO CONTACT THE PATIENT' SON REGARDING A SKILLED STAY AT [facility]. DUE TO NUMBER OF DISCHARGES THIS WEEKEND UNABLE TO CALL THE SON UNTIL THIS PM. NO ANSWER. LEFT A VOICE MAIL WITH MY CONTACT PHONE NUMBER. DCP- Discharge Planning Updated by [email or web address]: Ling Morley on 07/23/18 12:[address] Patient Name: TONIA MCCARTNEY Admission Status: ER Accout number: [id number] Admission Date: 07-21-2018 : 1960 Admission Diagnosis: Attending: CL LOUISE Current LOS: 2 Anticipated DC Date: Planned Disposition: Home with Home Health Primary Insurance: MEDICARE A & B Discharge Planning Comments: CM met with patient to assess discharge planning needs. Patient stated that he lives with his sister where he plans to return when he is discharged. He has home health, but could not remember the name. The company is out of [place] He has a walker and a wheelchair at home. He denies any needs at this time. CM will continue to follow and assist with DC planning Government Affairs Manager: Ling Morley DCPIA - Discharge Planning Initial Assessment Updated by [email or web address]: Ling Morley on 07/23/18 1:35 pm * Is the patient Alert and Oriented? Yes * How many steps to enter\exit or inside your home? * PCP [facility] * Pharmacy [facility] * Preadmission Environment Home with Family * ADLs Independent * Equipment Rolling Walker Walker * List name and contact numbers for known caregivers / representatives who currently or will assist patient after discharge: ANNI (SISTER) [phone] * Verbal permission to speak to the caregivers and representatives has been obtained from the patient. N/A * Community resources currently utilized Home Health * Please name any agencies selected above. [facility] (COULD NOT REMEMBER THE NAME) * Additional services required to return to the preadmission environment? No * Can the patient safely return to the preadmission environment? Yes * Has this patient been hospitalized within the prior 30 days at any hospital? No Last DP export: 07/23/18 12:45 Patient Name: TONIA MCCARTNEY Page [phone] at 1814 All edits/amendments must be made on the electronic document DICTATION DATE: 07/26/181812 BLANKING PRESS OPERATOR: ALVARADO 07/26/181812 RPT#: [id number] DC DATE: STATUS: ADM IN [facility] [address] [place] [address] END OF REPORT
--- NOTE | ~2018-07-21 | OP ---
PATIENT NAME: TONIA MCCARTNEY MEDICAL RECORD: [id number] :60 LOCATION:[facility] ADMISSION DATE:07/21/18 SURGEON: GARCIA HATFIELD DO DATE OF OPERATION: 07/25/2018 PROCEDURE PERFORMED: Right below-knee amputation. PREOPERATIVE DIAGNOSIS: Peripheral vascular disease of the right leg. POSTOPERATIVE DIAGNOSIS: Peripheral vascular disease of the right leg. INDICATIONS: Mr. Mccartney is a 58-year-old male, who presented to the hospital on 21 of July. He had had a right toe amputation in the recent past for infection. He said he had a splinter a few months ago and his foot became infected and would not heal. We did toe amputation and that did not heal either and became gangrenous and cellulitic and infected. After trying to get it to heal and with IV antibiotics with to no avail, he had a vascular study done of his right lower leg, which showed very little blood flow to the right lower extremity. He is a smoker and has smoked for years. I informed him that this infection probably would not clear up due to his poor circulation and also I would cut his lower extremity off and do a below-knee amputation, attempt to get it to heal, but due to his very poor vascular flow to that leg, it may not and may end up getting above-knee amputation. He decided he wanted the below-knee amputation to try and see if it would heal first. I was okay with that. He was consented for the procedure accepting the risks of infection, need for further surgery, another amputation, bleeding, continued pain, and phantom pain, and he consented to the procedure. SURGEON: Garcia Hatfield DO DESCRIPTION OF PROCEDURE: The patient was taken to the operative suite, laid in supine position, given general anesthetic and LMA was placed. The right lower extremity was prepped and draped in sterile fashion with Betadine. He had been receiving vancomycin on the floor, so no preoperative antibiotics were given due to that fact. Once he was prepped and draped, a time-out was performed and everyone was in agreement with the correct side, site, patient and procedure. The incision was then marked out in a fishmouth type amputation on the tibia approximately 12 cm below the joint line and this incision was made with a 10 blade scalpel through the skin and into the fascia. Bovie was used. Any vessels were coagulated as we went through compartment by compartment, and in the posterior compartment, the posterior tibial nerve, traction was placed on it and then it was cut as far proximal as possible. The posterior tibial artery and veins were tied off with silk suture ties. The tourniquet was used as the foot was elevated prior to the incision and was inflated to 350 mmHg. Once the vessels were tied off and all the compartments had been cut through the muscles, the superficial posterior compartment was retained more distal using the gastroc as a flap to cover the end of the tibia. Once all this was prepared, the tibia was cut and then bevelled on the anterior surface. The fibula was then cut approximately a centimeter above where the tibia was cut and then the tourniquet was let down. When tourniquet was let down, the holes had been drilled in the tibia for myodesis. A #2 Ethibond was placed through the sutures. There was not much bleeding as the tourniquet was let down likely due to his peripheral vascular disease. The deep fascia then of the gastroc muscle was tied up to the tibia covering the stump nicely with the #2 Ethibond that were put through the drill holes. Then the fascia was closed with #2 Ethibond and #1 Vicryl in a OPERATIVE REPORT [id number] TOINA MCCARTNEY teaglv-ho-hmeya fashion. The skin was then closed with 2-0 Vicryl in inverted interrupted fashion and 2-0 Prolene on the skin using horizontal mattresses. The stump was then dressed with Xeroform, 4 x 4's, ABD, Kerlix, and Roberto wrap and a knee immobilizer was placed on the leg. The patient was awakened and taken to recovery in stable condition. Blood loss was approximately 50 mL. Complications were none. TRANSINT:[id number] Voice Confirmation ID: [id number] DOCUMENT ID: [id number] GARCIA HATFIELD DO at 1940 CC: [id number] DICTATION DATE: 07/25/18 1016 METER READERS SUPERVISOR: 07/25/18 1257 ADM IN [facility] [address] [place] [address]
--- NOTE | ~2018-07-21 | MORECARE ---
CASE MANAGEMENT DISCHARGE SUMMARY PATIENT: TONIA MCCARTNEY UNIT: [id number] ADM DATE: 07/21/18 AGE: 58 : 60 SEX: M ROOM/BED: D.2203 AUTHOR: JACI KELLY PHYSICIAN: REFERRING PHYSICIAN: CL LOUISE MD DATE OF SERVICE: 07/26/18 Discharge Plan Patient Name: TONIA MCCARTNEY Facility: [facility]:[place] : 1960 Planned Disposition: Home with Home Health Anticipated Discharge Date: Discharge Date: Expected LOS: Initial Reviewer: [email or web address] Initial Review Date: 07/22/2018 Generated: 07/26/18 7:21 pm Comments DCP- Discharge Planning Updated by [email or web address]: Carmelina Martin on 07/26/18 5:[address] PATIENT NOTED TO HAVE FEVER TODAY. HAS REPORT OF POSITIVE BLOOD CULTURES. RECEIVING TRIPLE IVAB THERAPY. POD 2 RIGHT BKA / WOUND INFECTION/ NONHEALING SURGICAL WOUND/ GANGRENE. CM TO FOLLOW. DCP- Discharge Planning Updated by [email or web address]: Carmelina Martin on 07/26/18 5:[address] CM RECEIVED A REQUEST TO CONTACT THE PATIENT' SON REGARDING A SKILLED STAY AT [facility]. DUE TO NUMBER OF DISCHARGES THIS WEEKEND UNABLE TO CALL THE SON UNTIL THIS PM. NO ANSWER. LEFT A VOICE MAIL WITH MY CONTACT PHONE NUMBER. DCP- Discharge Planning Updated by [email or web address]: Ling Morley on 07/23/18 12:[address] Patient Name: TONIA MCCARTNEY Admission Status: ER Accout number: [id number] Admission Date: 07-21-2018 : 1960 Admission Diagnosis: Attending: CL LOUISE Current LOS: 2 Anticipated DC Date: Planned Disposition: Home with Home Health Primary Insurance: MEDICARE A & B Discharge Planning Comments: CM met with patient to assess discharge planning needs. Patient stated that he lives with his sister where he plans to return when he is discharged. He has home health, but could not remember the name. The company is out of [place] He has a walker and a wheelchair at home. He denies any needs at this time. CM will continue to follow and assist with DC planning Psychologist Research Assistant: Ling Morley DCPIA - Discharge Planning Initial Assessment Updated by [email or web address]: Ling Morley on 07/23/18 1:35 pm * Is the patient Alert and Oriented? Yes * How many steps to enter\exit or inside your home? * PCP [facility] * Pharmacy [facility] * Preadmission Environment Home with Family * ADLs Independent * Equipment Rolling Walker Walker * List name and contact numbers for known caregivers / representatives who currently or will assist patient after discharge: ANNI (SISTER) [phone] * Verbal permission to speak to the caregivers and representatives has been obtained from the patient. N/A * Community resources currently utilized Home Health * Please name any agencies selected above. [facility] (COULD NOT REMEMBER THE NAME) * Additional services required to return to the preadmission environment? No * Can the patient safely return to the preadmission environment? Yes * Has this patient been hospitalized within the prior 30 days at any hospital? No Last DP export: 07/26/18 5:14 Patient Name: TONIA MCCARTNEY Page [id number] at 1821 All edits/amendments must be made on the electronic document DICTATION DATE: 07/26/181819 SCRAPER HAND: ALVARADO 07/26/181819 RPT#: [id number] DC DATE: STATUS: ADM IN [facility] [address] [place] [address] END OF REPORT
--- NOTE | ~2018-07-21 | MORECARE ---
CASE MANAGEMENT DISCHARGE SUMMARY PATIENT: TONIA MCCARTNEY UNIT: [id number] ADM DATE: 07/21/18 AGE: 58 : 60 SEX: M ROOM/BED: D.2203 AUTHOR: ROBIN,DOC PHYSICIAN: REFERRING PHYSICIAN: CL LOUISE MD DATE OF SERVICE: 07/29/18 Discharge Plan Patient Name: TONIA MCCARTNEY Facility: [facility]:[place] : 1960 Planned Disposition: Home with Home Health Anticipated Discharge Date: Discharge Date: Expected LOS: Initial Reviewer: [email or web address] Initial Review Date: 07/22/2018 Generated: 07/29/18 2:19 pm Comments DCP- Discharge Planning Updated by [email or web address]: Jennifer Bagley on 07/29/18 12:[address] Received discharge order, he is in agreement to discharge to inpatient rehab at [facility]. I asked if I could call his son or sister and he states he is calling his son, because he needs clothes brought to the hospital. CM will continue to follow and assist with discharge planning/needs. DCP- Discharge Planning Updated by [id number]: Carmelina Martin on 07/26/18 5:[address] PATIENT NOTED TO HAVE FEVER TODAY. HAS REPORT OF POSITIVE BLOOD CULTURES. RECEIVING TRIPLE IVAB THERAPY. POD 2 RIGHT BKA / WOUND INFECTION/ NONHEALING SURGICAL WOUND/ GANGRENE. CM TO FOLLOW. DCP- Discharge Planning Updated by [email or web address]: Carmelina Martin on 07/26/18 5:[address] CM RECEIVED A REQUEST TO CONTACT THE PATIENT' SON REGARDING A SKILLED STAY AT [facility]. DUE TO NUMBER OF DISCHARGES THIS WEEKEND UNABLE TO CALL THE SON UNTIL THIS PM. NO ANSWER. LEFT A VOICE MAIL WITH MY CONTACT PHONE NUMBER. DCP- Discharge Planning Updated by [email or web address]: Ling Morley on 07/23/18 12:[address] Patient Name: OTNIA MCCARTNEY Admission Status: ER Accout number: [id number] Admission Date: 07-21-2018 : 1960 Admission Diagnosis: Attending: CL LOUISE Current LOS: 2 Anticipated DC Date: Planned Disposition: Home with Home Health Primary Insurance: MEDICARE A & B Discharge Planning Comments: CM met with patient to assess discharge planning needs. Patient stated that he lives with his sister where he plans to return when he is discharged. He has home health, but could not remember the name. The company is out of [place] He has a walker and a wheelchair at home. He denies any needs at this time. CM will continue to follow and assist with DC planning Director Financial Services: Ling Morley DCPIA - Discharge Planning Initial Assessment Updated by [email or web address]: Ling Morley on 07/23/18 1:35 pm * Is the patient Alert and Oriented? Yes * How many steps to enter\exit or inside your home? * PCP [facility] * Pharmacy [facility] * Preadmission Environment Home with Family * ADLs Independent * Equipment Rolling Walker Walker * List name and contact numbers for known caregivers / representatives who currently or will assist patient after discharge: ANNI (SISTER) [phone] * Verbal permission to speak to the caregivers and representatives has been obtained from the patient. N/A * Community resources currently utilized Home Health * Please name any agencies selected above. [facility] (COULD NOT REMEMBER THE NAME) * Additional services required to return to the preadmission environment? No * Can the patient safely return to the preadmission environment? Yes * Has this patient been hospitalized within the prior 30 days at any hospital? No Coverage Notice Reviewer: [email or web address] Natasha Bagley Notice Issued Date-Time: 07/29/2018 13:14 Notice Type: IM Discharge Notice Notice Delivered To: Patient Relationship to Patient: Self Ham Trimmer Name: Delivery Method: HAND - Hand Delivered Margi Days: Prior Verbal Notification: Recipient Understood Notice: Yes Recipient Signature: Yes Med Rec Note Co-signed by Attending: Coverage Notice Comment: IMM signed, copy given, original placed in MR Last DP export: 07/26/18 5:21 Patient Name: TONIA MCCARTNEY Page [phone] at 1319 All edits/amendments must be made on the electronic document DICTATION DATE: 07/29/18 1318 DIRECTOR HOUSEKEEPING: ALVARADO 07/29/18 1318 RPT#: [id number] DC DATE: STATUS: ADM IN [facility] [address] [place] [address] END OF REPORT
--- NOTE | ~2018-07-21 | MORECARE ---
CASE MANAGEMENT DISCHARGE SUMMARY PATIENT: TONIA MCCARTNEY UNIT: [id number] ADM DATE: 07/21/18 AGE: 58 : 60 SEX: M ROOM/BED: D.2203 AUTHOR: JACI EKLLY PHYSICIAN: REFERRING PHYSICIAN: CL LOUISE MD DATE OF SERVICE: 07/23/18 Discharge Plan Patient Name: TONIA MCCARTNEY [facility] [facility] 1960 Planned Disposition: Home with Home Health Anticipated Discharge Date: Discharge Date: Expected LOS: Initial Reviewer: [id number] Initial Review Date: 07/22/2018 Generated: 07/23/18 2:36 pm DCPIA - Discharge Planning Initial Assessment Updated by [email or web address]: Ling Morley on 07/23/18 1:35 pm * Is the patient Alert and Oriented? Yes * How many steps to enter\exit or inside your home? * PCP [facility] * [facility] * Preadmission Environment Home with Family * ADLs Independent * Equipment Rolling Walker Walker * List name and contact numbers for known caregivers / representatives who currently or will assist patient after discharge: ANNI (SISTER) [phone] * Verbal permission to speak to the caregivers and representatives has been obtained from the patient. N/A * Community resources currently utilized Home Health * Please name any agencies selected above. [facility] (COULD NOT REMEMBER THE NAME) * Additional services required to return to the preadmission environment? No * Can the patient safely return to the preadmission environment? Yes * Has this patient been hospitalized within the prior 30 days at any hospital? No Patient Name: TONIA MCCARTNEY Page [phone] at 1336 All edits/amendments must be made on the electronic document DICTATION DATE: 07/23/18 1336 RAILCAR MECHANIC: ALVARADO 07/23/18 1336 RPT#: [id number] DC DATE: STATUS: ADM IN [facility] [address] [place] [address] END OF REPORT
--- NOTE | ~2018-07-21 | MORECARE ---
CASE MANAGEMENT DISCHARGE SUMMARY PATIENT: TONIA MCCARTNEY UNIT: [id number] ADM DATE: 07/21/18 AGE: 58 : 60 SEX: M ROOM/BED: D.2203 AUTHOR: JAIC KELLY PHYSICIAN: REFERRING PHYSICIAN: CL LOUISE MD DATE OF SERVICE: 07/23/18 Discharge Plan Patient Name: TONIA MCCARTNEY Facility: [facility]:[place] : 1960 Planned Disposition: Home with Home Health Anticipated Discharge Date: Discharge Date: Expected LOS: Initial Reviewer: [email or web address] Initial Review Date: 07/22/2018 Generated: 07/23/18 2:45 pm Comments DCP- Discharge Planning Updated by [email or web address]: Ling Morley on 07/23/18 12:[address] Patient Name: TONIA MCCARTNEY Admission Status: ER Accout number: [id number] Admission Date: 07-21-2018 : 1960 Admission Diagnosis: Attending: CL LOUISE Current LOS: 2 Anticipated DC Date: Planned Disposition: Home with Home Health Primary Insurance: MEDICARE A & B Discharge Planning Comments: CM met with patient to assess discharge planning needs. Patient stated that he lives with his sister where he plans to return when he is discharged. He has home health, but could not remember the name. The company is out of [place] He has a walker and a wheelchair at home. He denies any needs at this time. CM will continue to follow and assist with DC planning [employer]: Ling Morley DCPIA - Discharge Planning Initial Assessment Updated by [id number]: Ling Morley on 07/23/18 1:35 pm * Is the patient Alert and Oriented? Yes * How many steps to enter\exit or inside your home? * PCP [facility] * [facility]acy [facility] * Preadmission Environment Home with Family * ADLs Independent * Equipment Rolling Walker Walker * List name and contact numbers for known caregivers / representatives who currently or will assist patient after discharge: ANNI (SISTER) [phone] * Verbal permission to speak to the caregivers and representatives has been obtained from the patient. N/A * Community resources currently utilized Home Health * Please name any agencies selected above. [facility] (COULD NOT REMEMBER THE NAME) * Additional services required to return to the preadmission environment? No * Can the patient safely return to the preadmission environment? Yes * Has this patient been hospitalized within the prior 30 days at any hospital? No Last DP export: 07/23/18 12:36 Patient Name: TONIA MCCARTNEY Page [phone] at 1345 All edits/amendments must be made on the electronic document DICTATION DATE: 07/23/18 1345 PLANT AND MACHINERY VALUER: ALVARADO 07/23/18 1345 RPT#: [id number] DC DATE: STATUS: ADM IN [facility] [address] [place] [address] END OF REPORT
[~2018-07-21 22:33] MED LIST changes: +NORCO 10-325 TA1 TAB PO
[2018-07-21 23:25] VITALS: BP 138/83
[2018-07-22] VITALS (9 sets, daily range): BP systolic 125–185; BP diastolic 69–104; BMI 24.6; BMI 23.3
[2018-07-22 00:31] LABS: BASOPHILS 0.2 % (0-2); EOSINOPHILS 1.4 % (0-7); HEMATOCRIT 25.5 % (42.0-54.0); HEMOGLOBIN 7.9 g/dL (13.5-17.5); IMMATURE GRANULOCYTES 0.4 % (0-5); LYMPHOCYTES 22.3 % (15-50); MCV 83.9 fL (80.0-100.0); MEAN PLATELET VOLUME 9.6 fL (7.4-10.4); MONOCYTES 21.8 % (2-11); NEUTROPHILS 53.9 % (40-80); PLATELET COUNT 487 10x3/uL (130-400); RBC 3.04 10x6/uL (4.20-6.10); RDW 17.5 % (11.5-14.5); WBC 9.3 10x3/uL (4.8-10.8)
[2018-07-22 00:32] LABS: ALBUMIN 2.9 g/dL (3.4-5.0); ALKALINE PHOSPHATASE 94 U/L (46-116); ALT (SGPT) 8 U/L (10-68); BILIRUBIN - TOTAL 0.24 mg/dL (0.2-1.3); CALC OSMOLALITY 245 mosm/kg (275-300); CALCIUM 9.2 mg/dL (8.5-10.1); CARBON DIOXIDE 25.6 mmol/L (21.0-32.0); CHLORIDE - SERUM 87 mmol/L (98-107); CREATININE - SERUM 0.8 mg/dL (0.6-1.3); GLUCOSE 97 mg/dL (74-106); PROTEIN - SERUM 8.5 g/dL (6.4-8.2); SODIUM 123 mmol/L (136-145); UREA NITROGEN 6 mg/dL (7-18); eGFR NON AFRICAN AMERICAN > 90 mL/min (90-120)
[2018-07-22 06:22] LABS: HEMATOCRIT 22.3 % (42.0-54.0); MCH 25.8 pg (26.0-34.0); MCHC 30.5 g/dL (31.0-37.0); MCV 84.5 fL (80.0-100.0); MEAN PLATELET VOLUME 9.9 fL (7.4-10.4); PLATELET COUNT 448 10x3/uL (130-400); RBC 2.64 10x6/uL (4.20-6.10); RDW 17.5 % (11.5-14.5)
[2018-07-22 06:43] LABS: CALC OSMOLALITY 252 mosm/kg (275-300); CARBON DIOXIDE 22.7 mmol/L (21.0-32.0); CHLORIDE - SERUM 94 mmol/L (98-107); CREATININE - SERUM 0.9 mg/dL (0.6-1.3); GLUCOSE 91 mg/dL (74-106); SODIUM 127 mmol/L (136-145); UREA NITROGEN 7 mg/dL (7-18); eGFR NON AFRICAN AMERICAN > 90 mL/min (90-120)
[2018-07-22 07:05] LABS: WBC 6.8 10x3/uL (4.8-10.8)
[2018-07-22 07:08] LABS: HEMOGLOBIN 6.8 g/dL (13.5-17.5)
[2018-07-22 07:32] LABS: BASOPHILS 1 % (0-2); EOSINOPHILS 1 % (0-7); LYMPHOCYTES 33 % (15-50); MONOCYTES 14 % (2-11); NEUTROPHILS 48 % (40-80); PLATELET ESTIMATE INCREASED
[2018-07-22 07:33] LABS: ROULEAUX OCC
[2018-07-22 15:59] LABS: APTT 30.6 SECONDS (22.8-39.4); INR 1.12 (0.85-1.17); PROTIME 13.9 SECONDS (11.6-15.0)
[2018-07-22 16:06] LABS: % SATURATION 16 % (15-55); IRON 51 ug/dl (35-150); TOTAL IRON BIND CAPACITY 308 ug/dl (260-445); UNSAT IRON BIND CAPACITY 257 ug/dl (150-375)
[2018-07-22 16:19] LABS: MAGNESIUM - SERUM 1.6 mg/dL (1.8-2.4)
[2018-07-22 17:59] LABS: APPEARANCE CLEAR (CLEAR); BILIRUBIN NEGATIVE (NEGATIVE); COLOR YELLOW (YELLOW); GLUCOSE NEGATIVE (NEGATIVE); KETONE NEGATIVE (NEGATIVE); NITRITE NEGATIVE (NEGATIVE); PROTEIN NEGATIVE (NEGATIVE); UROBILINOGEN NORMAL (NORMAL)
[2018-07-23] VITALS: BP 119/74
[2018-07-23 04:00] VITALS: BP 129/53; BP 177/78
[2018-07-23 05:14] LABS: BASOPHILS 0.9 % (0-2); EOSINOPHILS 2.8 % (0-7); HEMATOCRIT 23.3 % (42.0-54.0); IMMATURE GRANULOCYTES 0.6 % (0-5); LYMPHOCYTES 20.9 % (15-50); MCH 25.8 pg (26.0-34.0); MCHC 30.5 g/dL (31.0-37.0); MCV 84.7 fL (80.0-100.0); MEAN PLATELET VOLUME 9.4 fL (7.4-10.4); MONOCYTES 22.7 % (2-11); NEUTROPHILS 52.1 % (40-80); PLATELET COUNT 420 10x3/uL (130-400); RBC 2.75 10x6/uL (4.20-6.10); RDW 17.9 % (11.5-14.5); WBC 6.8 10x3/uL (4.8-10.8)
[2018-07-23 05:35] LABS: INR 1.23 (0.85-1.17)
[2018-07-23 05:36] LABS: APTT 46.4 SECONDS (22.8-39.4)
[2018-07-23 05:37] LABS: HEMOGLOBIN 7.1 g/dL (13.5-17.5)
[2018-07-23 05:39] LABS: CALC OSMOLALITY 257 mosm/kg (275-300); CALCIUM 7.9 mg/dL (8.5-10.1); CARBON DIOXIDE 23.1 mmol/L (21.0-32.0); CHLORIDE - SERUM 97 mmol/L (98-107); CREATININE - SERUM 0.7 mg/dL (0.6-1.3); GLUCOSE 99 mg/dL (74-106); POTASSIUM - SERUM 3.6 mmol/L (3.5-5.1); SODIUM 130 mmol/L (136-145); eGFR NON AFRICAN AMERICAN > 90 mL/min (90-120)
[2018-07-23 05:42] LABS: UREA NITROGEN 5 mg/dL (7-18)
[2018-07-23 09:01] VITALS: BP 165/90
[2018-07-23 14:01] VITALS: BP 135/84
[2018-07-23 14:22] VITALS: BP 135/84
[2018-07-23 14:47] VITALS: Ht 165.1 cm; Wt 63.6 kg
[2018-07-23 19:48] VITALS: BP 168/89
[2018-07-24] VITALS (8 sets, daily range): BP systolic 110–178; BP diastolic 71–92
[2018-07-24 04:24] LABS: BASOPHILS 0.6 % (0-2); HEMATOCRIT 25.1 % (42.0-54.0); IMMATURE GRANULOCYTES 0.4 % (0-5); LYMPHOCYTES 20.8 % (15-50); MCH 26.8 pg (26.0-34.0); MCHC 31.9 g/dL (31.0-37.0); MCV 84.2 fL (80.0-100.0); MEAN PLATELET VOLUME 9.1 fL (7.4-10.4); NEUTROPHILS 56.2 % (40-80); PLATELET COUNT 396 10x3/uL (130-400); RBC 2.98 10x6/uL (4.20-6.10); RDW 17.1 % (11.5-14.5); WBC 7.9 10x3/uL (4.8-10.8)
[2018-07-24 04:29] LABS: CALC OSMOLALITY 248 mosm/kg (275-300); CALCIUM 7.8 mg/dL (8.5-10.1); CARBON DIOXIDE 22.7 mmol/L (21.0-32.0); CHLORIDE - SERUM 94 mmol/L (98-107); CREATININE - SERUM 0.7 mg/dL (0.6-1.3); GLUCOSE 89 mg/dL (74-106); MAGNESIUM - SERUM 1.8 mg/dL (1.8-2.4); POTASSIUM - SERUM 4.1 mmol/L (3.5-5.1); SODIUM 126 mmol/L (136-145); UREA NITROGEN 5 mg/dL (7-18); eGFR NON AFRICAN AMERICAN > 90 mL/min (90-120)
[2018-07-24 20:05] LABS: BASOPHILS 0.6 % (0-2); EOSINOPHILS 2.9 % (0-7); HEMATOCRIT 24.2 % (42.0-54.0); HEMOGLOBIN 7.8 g/dL (13.5-17.5); IMMATURE GRANULOCYTES 1.1 % (0-5); LYMPHOCYTES 16.4 % (15-50); MCH 26.9 pg (26.0-34.0); MCHC 32.2 g/dL (31.0-37.0); MCV 83.4 fL (80.0-100.0); MEAN PLATELET VOLUME 9.4 fL (7.4-10.4); MONOCYTES 19.6 % (2-11); NEUTROPHILS 59.4 % (40-80); PLATELET COUNT 411 10x3/uL (130-400); WBC 8.2 10x3/uL (4.8-10.8)
[2018-07-25] VITALS: BP 176/90
[2018-07-25 04:00] VITALS: BP 148/79
[2018-07-25 06:54] LABS: BASOPHILS 0.6 % (0-2); EOSINOPHILS 2.8 % (0-7); HEMATOCRIT 29.7 % (42.0-54.0); HEMOGLOBIN 9.7 g/dL (13.5-17.5); IMMATURE GRANULOCYTES 0.4 % (0-5); LYMPHOCYTES 15.6 % (15-50); MCH 27.9 pg (26.0-34.0); MCHC 32.7 g/dL (31.0-37.0); MCV 85.3 fL (80.0-100.0); MEAN PLATELET VOLUME 9.4 fL (7.4-10.4); MONOCYTES 18.4 % (2-11); NEUTROPHILS 62.2 % (40-80); PLATELET COUNT 400 10x3/uL (130-400); RBC 3.48 10x6/uL (4.20-6.10); RDW 16.8 % (11.5-14.5); WBC 7.8 10x3/uL (4.8-10.8)
[2018-07-25 07:20] LABS: CALC OSMOLALITY 262 mosm/kg (275-300); CALCIUM 8.3 mg/dL (8.5-10.1); CARBON DIOXIDE 19.3 mmol/L (21.0-32.0); CHLORIDE - SERUM 98 mmol/L (98-107); CREATININE - SERUM 0.8 mg/dL (0.6-1.3); GLUCOSE 93 mg/dL (74-106); POTASSIUM - SERUM 3.5 mmol/L (3.5-5.1); SODIUM 132 mmol/L (136-145); eGFR NON AFRICAN AMERICAN > 90 mL/min (90-120)
[2018-07-25 07:22] LABS: UREA NITROGEN 8 mg/dL (7-18)
[2018-07-25 10:59] VITALS: BP 146/75
[2018-07-25 14:15] VITALS: BP 189/95
[2018-07-25 19:47] VITALS: BP 196/109
[2018-07-26] VITALS: BP 145/86
[2018-07-26 04:02] VITALS: BP 124/74
[2018-07-26 05:48] LABS: BASOPHILS 0.7 % (0-2); EOSINOPHILS 1.4 % (0-7); HEMATOCRIT 32.4 % (42.0-54.0); HEMOGLOBIN 10.6 g/dL (13.5-17.5); IMMATURE GRANULOCYTES 0.4 % (0-5); LYMPHOCYTES 14.2 % (15-50); MCHC 32.7 g/dL (31.0-37.0); MCV 85.5 fL (80.0-100.0); MEAN PLATELET VOLUME 9.5 fL (7.4-10.4); MONOCYTES 21.7 % (2-11); NEUTROPHILS 61.6 % (40-80); PLATELET COUNT 437 10x3/uL (130-400); RBC 3.79 10x6/uL (4.20-6.10); RDW 16.9 % (11.5-14.5)
[2018-07-26 06:06] LABS: CALC OSMOLALITY 254 mosm/kg (275-300); CALCIUM 8.6 mg/dL (8.5-10.1); CARBON DIOXIDE 21.1 mmol/L (21.0-32.0); CHLORIDE - SERUM 94 mmol/L (98-107); GLUCOSE 103 mg/dL (74-106); POTASSIUM - SERUM 3.6 mmol/L (3.5-5.1); SODIUM 128 mmol/L (136-145); UREA NITROGEN 8 mg/dL (7-18); eGFR NON AFRICAN AMERICAN 81 mL/min (90-120)
[2018-07-26 09:03] VITALS: BP 108/70
[2018-07-26 12:30] VITALS: BP 155/91
[2018-07-26 17:15] VITALS: BP 153/75
[2018-07-26 20:00] VITALS: BP 153/90
[2018-07-27 04:00] VITALS: BP 111/54
[2018-07-27 05:08] LABS: BASOPHILS 0.6 % (0-2); EOSINOPHILS 0.7 % (0-7); HEMATOCRIT 31.8 % (42.0-54.0); HEMOGLOBIN 10.1 g/dL (13.5-17.5); IMMATURE GRANULOCYTES 0.4 % (0-5); LYMPHOCYTES 13.3 % (15-50); MCH 27.3 pg (26.0-34.0); MCHC 31.8 g/dL (31.0-37.0); MCV 85.9 fL (80.0-100.0); MEAN PLATELET VOLUME 10.1 fL (7.4-10.4); MONOCYTES 19.2 % (2-11); NEUTROPHILS 65.8 % (40-80); PLATELET COUNT 488 10x3/uL (130-400); RDW 16.9 % (11.5-14.5); WBC 10.4 10x3/uL (4.8-10.8)
[2018-07-27 05:39] LABS: CALC OSMOLALITY 257 mosm/kg (275-300); CALCIUM 8.3 mg/dL (8.5-10.1); CARBON DIOXIDE 20.9 mmol/L (21.0-32.0); CHLORIDE - SERUM 95 mmol/L (98-107); CREATININE - SERUM 0.8 mg/dL (0.6-1.3); GLUCOSE 124 mg/dL (74-106); POTASSIUM - SERUM 3.1 mmol/L (3.5-5.1); SODIUM 129 mmol/L (136-145); UREA NITROGEN 8 mg/dL (7-18); eGFR NON AFRICAN AMERICAN > 90 mL/min (90-120)
[2018-07-27 08:25] VITALS: BP 115/73
[2018-07-27 11:04] LABS: MAGNESIUM - SERUM 1.6 mg/dL (1.8-2.4); PHOSPHOROUS 3.1 mg/dL (2.5-4.9)
[2018-07-27 11:30] VITALS: BP 143/71
[2018-07-27 16:00] VITALS: BP 144/72
[2018-07-27 19:40] VITALS: BP 159/85
[2018-07-28] VITALS: BP 141/60
[2018-07-28 06:25] LABS: BASOPHILS 0.5 % (0-2); EOSINOPHILS 1.6 % (0-7); HEMATOCRIT 30.4 % (42.0-54.0); HEMOGLOBIN 9.6 g/dL (13.5-17.5); IMMATURE GRANULOCYTES 0.7 % (0-5); LYMPHOCYTES 13.7 % (15-50); MCH 27.4 pg (26.0-34.0); MCHC 31.6 g/dL (31.0-37.0); MCV 86.6 fL (80.0-100.0); MEAN PLATELET VOLUME 10.5 fL (7.4-10.4); MONOCYTES 20.9 % (2-11); NEUTROPHILS 62.6 % (40-80); PLATELET COUNT 483 10x3/uL (130-400); RBC 3.51 10x6/uL (4.20-6.10); RDW 17.5 % (11.5-14.5); WBC 10.7 10x3/uL (4.8-10.8)
[2018-07-28 06:35] VITALS: BP 146/78
[2018-07-28 06:47] LABS: ALBUMIN 1.9 g/dL (3.4-5.0); ALKALINE PHOSPHATASE 52 U/L (46-116); ALT (SGPT) 14 U/L (10-68); BILIRUBIN - TOTAL 0.29 mg/dL (0.2-1.3); CALC OSMOLALITY 261 mosm/kg (275-300); CALCIUM 8.5 mg/dL (8.5-10.1); CARBON DIOXIDE 20.5 mmol/L (21.0-32.0); CHLORIDE - SERUM 98 mmol/L (98-107); CREATININE - SERUM 0.8 mg/dL (0.6-1.3); GLUCOSE 93 mg/dL (74-106); PROTEIN - SERUM 7.1 g/dL (6.4-8.2); SODIUM 131 mmol/L (136-145); UREA NITROGEN 9 mg/dL (7-18); eGFR NON AFRICAN AMERICAN > 90 mL/min (90-120)
[2018-07-28 06:48] LABS: POTASSIUM - SERUM 3.6 mmol/L (3.5-5.1)
[2018-07-28 08:42] VITALS: BP 153/79
[2018-07-28 11:55] VITALS: BP 140/80
[2018-07-28 15:38] VITALS: BP 139/75
[2018-07-28 20:00] VITALS: BP 149/83
[2018-07-29 00:13] VITALS: BP 175/89
[2018-07-29 04:00] VITALS: BP 153/80
[2018-07-29 04:20] LABS: BASOPHILS 0.4 % (0-2); EOSINOPHILS 2.7 % (0-7); HEMATOCRIT 29.9 % (42.0-54.0); HEMOGLOBIN 9.5 g/dL (13.5-17.5); IMMATURE GRANULOCYTES 0.6 % (0-5); LYMPHOCYTES 15.1 % (15-50); MCH 27.5 pg (26.0-34.0); MCHC 31.8 g/dL (31.0-37.0); MCV 86.4 fL (80.0-100.0); MEAN PLATELET VOLUME 10.6 fL (7.4-10.4); MONOCYTES 18.3 % (2-11); NEUTROPHILS 62.9 % (40-80); PLATELET COUNT 539 10x3/uL (130-400); RBC 3.46 10x6/uL (4.20-6.10); RDW 17.3 % (11.5-14.5); WBC 8.5 10x3/uL (4.8-10.8)
[2018-07-29 04:39] LABS: ALBUMIN 1.8 g/dL (3.4-5.0); ALKALINE PHOSPHATASE 50 U/L (46-116); ALT (SGPT) 14 U/L (10-68); BILIRUBIN - TOTAL 0.17 mg/dL (0.2-1.3); CALC OSMOLALITY 258 mosm/kg (275-300); CARBON DIOXIDE 22.4 mmol/L (21.0-32.0); CHLORIDE - SERUM 97 mmol/L (98-107); CREATININE - SERUM 0.8 mg/dL (0.6-1.3); GLUCOSE 107 mg/dL (74-106); PROTEIN - SERUM 6.9 g/dL (6.4-8.2); SODIUM 130 mmol/L (136-145); UREA NITROGEN 7 mg/dL (7-18); eGFR NON AFRICAN AMERICAN > 90 mL/min (90-120)
[2018-07-29 04:49] LABS: POTASSIUM - SERUM 2.8 mmol/L (3.5-5.1)
[2018-07-29 08:17] VITALS: BP 154/75
[2018-07-29 09:25] LABS: MAGNESIUM - SERUM 1.7 mg/dL (1.8-2.4)
[2018-07-29] MEDS ORDERED: Lovenox INJ SC (11:30)
[2018-07-29] MEDS ORDERED: NORCO-7.5 PO (11:30)
[2018-07-29] MEDS ORDERED: HYDRALAZINE20 MG/ML IV (11:30)
[2018-07-29] MEDS ORDERED: DILAUDID INJ2 MG/ML IV (11:30)
[2018-07-29] MEDS ORDERED: NORCO-10 PO (11:30)
[2018-07-29] MEDS ORDERED: Nicoderm [PBKC] TRANSDERM (11:30)
[2018-07-29] MEDS ORDERED: LOPRESSOR25 MG PO (11:30)
[2018-07-29] MEDS ORDERED: PLETAL PO (11:30)
[2018-07-29] MEDS ORDERED: MIRALAX17 GM PO (11:31)
[2018-07-29] MEDS ORDERED: CARAFATE1 G PO (11:31)
[2018-07-29] MEDS ORDERED: FLORAJEN3 CAPS460 MG PO (11:31)
[2018-07-29] MEDS ORDERED: COLACE100 MG PO (11:31)
[2018-07-29] MEDS ORDERED: PROTONIX40 MG PO (11:31)
[2018-07-29] MEDS ORDERED: ONDANSETRON4 MG/2 M3 IV (11:31)
[2018-07-29] MEDS ORDERED: K-DUR20 MEQ PO (11:31)
[2018-07-29] MEDS ORDERED: ROCEPHIN 1 GM/D51 G1 IV (11:32)
[2018-07-29 12:30] VITALS: BP 177/95
[2018-07-29 16:20] VITALS: BP 159/91
[2018-07-29 17:08] LABS: AEROBE ID Final report (()); RESULT 1 Aerococcus viridans (())
== END 2018-07-29 18:02 | DRG 474 ==
LOC: D.ER 22:33 → D.MS 23:58 → D.EDHOLD 23:58 → D.MS 07-22 14:10
PROVIDERS: Anesthesiology; Emergency Medicine; Family Medicine; General Practice; Internal Medicine Nephrology; Orthopaedic Surgery
PROC: 0Y6H0Z3 Detachment at Right Lower Leg, Low, Open Approach (ICD-10-PCS; principal; 2018-07-25 07:59)
DX: T87.43 Infection of amputation stump, right lower extremity (principal); A41.9 Sepsis, unspecified organism; L03.115 Cellulitis of right lower limb; E87.1 Hypo-osmolality and hyponatremia; I96 Gangrene, not elsewhere classified; F17.213 Nicotine dependence, cigarettes, with withdrawal; I70.261 Atherosclerosis of native arteries of extremities with gangrene, right leg; Y83.8 Other surgical procedures as the cause of abnormal reaction of the patient, or of later complication, without mention of misadventure at the time of the procedure; F10.20 Alcohol dependence, uncomplicated; D50.9 Iron deficiency anemia, unspecified; B19.20 Unspecified viral hepatitis C without hepatic coma; I25.10 Atherosclerotic heart disease of native coronary artery without angina pectoris; I10 Essential (primary) hypertension

== ENCOUNTER 2018-07-29 16:07 | Inpatient (IN) | payer MEDICARE ==
[~2018-07-29] VITALS: Ht 165.1 cm; Wt 62.6 kg
[~2018-07-29 16:07] MED LIST changes: +CARAFATE1 G PO; +COLACE100 MG PO; +DILAUDID INJ2 MG/ML IV; +K-DUR20 MEQ PO; +LOPRESSOR25 MG PO; +Lovenox INJ SC; +NORCO-7.5 PO; +PLETAL PO; +ROCEPHIN 1 GM/D51 G1 IV
[2018-07-29 19:45] VITALS: BP 143/89
[2018-07-29 22:20] VITALS: BP 143/89
[2018-07-30 06:53] LABS: BASOPHILS 0.4 % (0-2); EOSINOPHILS 3.4 % (0-7); HEMOGLOBIN 9.8 g/dL (13.5-17.5); IMMATURE GRANULOCYTES 0.4 % (0-5); LYMPHOCYTES 19.5 % (15-50); MCH 27.9 pg (26.0-34.0); MCHC 32.7 g/dL (31.0-37.0); MCV 85.5 fL (80.0-100.0); MEAN PLATELET VOLUME 10.2 fL (7.4-10.4); MONOCYTES 21.7 % (2-11); NEUTROPHILS 54.6 % (40-80); PLATELET COUNT 585 10x3/uL (130-400); RBC 3.51 10x6/uL (4.20-6.10); RDW 17.4 % (11.5-14.5); WBC 7.4 10x3/uL (4.8-10.8)
[2018-07-30 07:13] LABS: CALC OSMOLALITY 258 mosm/kg (275-300); CALCIUM 8.5 mg/dL (8.5-10.1); CARBON DIOXIDE 21.4 mmol/L (21.0-32.0); CHLORIDE - SERUM 96 mmol/L (98-107); CREATININE - SERUM 0.7 mg/dL (0.6-1.3); GLUCOSE 112 mg/dL (74-106); POTASSIUM - SERUM 3.6 mmol/L (3.5-5.1); SODIUM 130 mmol/L (136-145); eGFR NON AFRICAN AMERICAN > 90 mL/min (90-120)
[2018-07-30 07:15] LABS: UREA NITROGEN 5 mg/dL (7-18)
[2018-07-30 08:00] VITALS: BP 153/85
[2018-07-30 14:39] VITALS: Ht 165.1 cm; Wt 62.6 kg
--- NOTE | 2018-07-30 15:04 | RHP ---
PATIENT: TONIA MCCARTNEY MEDICAL RECORD: [id number] ACCOUNT: [id number] [facility] ADMISSION DATE: 07/29/18 REHABILITATION HISTORY AND PHYSICAL EXAMINATION POST ADMISSION PHYSICIAN EXAMINATION DATE OF ADMISSION TO THE REHAB: 07/29/2018 ADMITTING DIAGNOSIS: Right ikxqa-fdp-dxki amputation secondary to gangrenous right foot. HISTORY OF PRESENT ILLNESS: The patient is a 58-year-old gentleman who presented to the Emergency Room on 07/21/2018 with complaints of having pain in his right foot after having a great toe amputation and debridement in May. The patient states he went to inpatient rehab after the amputation, was discharged home. States the pain came back gradually, it had gotten severe over the previous couple of days with swelling, redness and decreased range of motion. He also complained of fatigue, chills and generalized weakness. On exam, it was noted that he had nonpalpable pulses in his foot. He also had decreased sensation around the gangrenous areas. His right foot definitely had gangrene. He had a black eschar that was noted to the surgical site where the hallux and first partial metatarsal amputation was performed. He had malodorous smell to this area, but no purulence at the time upon admission. Ortho, podiatry, interventional radiology, cardiology and ID were all consulted on this patient after trying to get it to heal with IV antibiotics and treatment with no avail, it was decided that the infection would not clear up due to his poor circulation and he had a below the knee amputation on 07/25/2018. Postop, he has had some intermittent confusion, postop fever with a T-max of 101.1. He had some elevated blood pressures, blood loss anemia. He has received a total of 4 units of packed red blood cells. He also had some blood cultures that were positive for Actinobacteria and Enterococcus viridans. During his stay, he was treated with IV Rocephin for this. The patient was scheduled to have an endoscopy, but did not have this done. Previously lived with his sister, was moderately independent with a cane or walker with ADLs and mobility. Currently, he is weak, fatigued, has poor balance secondary to his new amputation. He would like to build up his strength in his upper extremities, so we can transfer and eventually learn to walk again. He will definitely benefit from inpatient rehab to get back to his prior level of functioning. COMORBIDITIES: In this patient include polymicrobial sepsis, gangrenous foot, nonhealing surgical wound, lower limb amputation, cellulitis, left lower extremity claudication, severe peripheral vascular disease and peripheral arterial disease, iron-deficient anemia, electrolyte abnormalities, hypertension, erosive hemorrhagic gastritis, duodenitis, diastolic dysfunction, history of hepatitis C positive, chronic back pain, alcohol abuse and dependency, and nicotine dependence and withdrawals. PAST MEDICAL HISTORY: Significant for hypertension, peripheral vascular disease, tobacco use. PAST SURGICAL HISTORY: Includes a plate placed in his leg. He has also had surgery to his extremities. ALLERGIES: No known drug allergies. HISTORY AND PHYSICAL [id number] TONIA MCCARTNEY CURRENT MEDICATIONS: Include Rocephin 1 gram every 24 hours, he will get 7 dosage of this treating for the polymicrobial sepsis; MiraLax 17 grams in 8 ounces of water daily; he is on Lipitor 40 mg daily; aspirin chewable 81 mg daily; Protonix 40 mg b.i.d.; nicotine patch that he applies daily; Lovenox 30 mg subQ daily; lisinopril 10 mg daily; he is on electrolyte protocol at this time; he is on Zofran 4 mg every 4 hours p.r.n.; Dilaudid 2 mg every 4 hours p.r.n. severe pain; he is on Carafate 1 gram before meals and at bedtime; he is on Pletal 50 mg b.i.d.; hydralazine as needed for systolic blood pressure greater than 160; Colace 200 mg at bedtime; cyclobenzaprine 5 mg t.i.d. p.r.n. spasms; [place] 7.5 one tab every 4 hours p.r.n. and Lopressor 25 mg b.i.d. HABITS: No current alcohol or tobacco use, does have a history of both. FAMILY HISTORY: Noncontributory. SOCIAL HISTORY: The patient hopes to return back home and get back to his prior level of functioning, hopefully get fitted for an artificial limb during his stay. REVIEW OF SYSTEMS: GENERAL: Denies weakness or fatigue. HEENT: Denies cold, cough, or congestion. CARDIOVASCULAR: Denies chest pain. PHYSICAL EXAMINATION: VITAL SIGNS: Stable, afebrile. GENERAL: Well-developed, thin gentleman in no acute distress, alert upon exam. HEENT: Normocephalic and atraumatic. Mucosa moist. NECK: Supple. No lymphadenopathy. LUNGS: Clear at this time with no wheeze, rhonchi or rales. HEART: Regular rate and rhythm. He is somewhat tachycardic. ABDOMEN: Benign. No rebound, no guarding. EXTREMITIES: He does have a noted right ipgje-tzv-rbdk amputation. NEUROLOGIC: He seems intact except for some proximal muscle weakness. LABORATORY DATA: His white count is 7.4, H&H of 9.8 and 30.0, and platelet count is 585. Sodium is 130, potassium 3.6, BUN and creatinine of 5 and 0.7 and blood sugar is noted to be 112. ASSESSMENT: This is a 58-year-old gentleman admitted to the rehab with a working diagnosis of rleyp-fgr-nyek amputation. The patient has potential to make improvement. We instituted the following multidisciplinary therapies include, but not limited to physical, occupational, respiratory, speech, nutritional services, prosthetics and orthotics. Given his complex medical condition and risks for more complications, rehabilitation services cannot be provided at a low level of care such as a skilled nurse facility. PLAN: 1. Admit to [facility] for intensive inpatient therapy to include the following disciplines: A. Physical therapy to improve gait, all transfer skills and bed mobility to a modified independent level. B. Occupational therapy to a modified independent level. C. Case management to assist with discharge planning and placement options. D. Nutrition to assist with nutritional needs. HISTORY AND PHYSICAL [id number] BIB,TONIA Moura. Rehabilitation nursing to assist in monitoring the patient's underlying medical conditions and to assist with any type of bowel or bladder management. 2. The patient's current medication and medical care will be continued. 3. The patient will be placed on standard fall precautions. 4. I am going to go ahead and get a [facility] [employer] to see him during his stay for fitting of an artificial limb. 5. I am going to follow up in the a.m. TRANSINT:[id number] Voice Confirmation ID: [id number] DOCUMENT ID: [id number] BRIDGET notes whether there has been none or any medical/functional change since admission: - No change since prescreen. BRIDGET attests patient continues to be appropriate for IRF: - Continues to be apporpriate. GOOD MEEK MD at 1504 CC: [id number] DICTATION DATE: 07/30/18939 INTERNET MARKETING DIRECTOR: 07/30/18 1005 ADM IN [facility] [address] [place] [id number]
[2018-07-30 19:00] VITALS: BP 166/93
[2018-07-31 07:18] LABS: BASOPHILS 0.5 % (0-2); HEMATOCRIT 30.8 % (42.0-54.0); HEMOGLOBIN 9.8 g/dL (13.5-17.5); IMMATURE GRANULOCYTES 0.6 % (0-5); LYMPHOCYTES 22.3 % (15-50); MCH 27.5 pg (26.0-34.0); MCHC 31.8 g/dL (31.0-37.0); MCV 86.3 fL (80.0-100.0); MEAN PLATELET VOLUME 10.2 fL (7.4-10.4); MONOCYTES 20.5 % (2-11); NEUTROPHILS 52.1 % (40-80); PLATELET COUNT 636 10x3/uL (130-400); RBC 3.57 10x6/uL (4.20-6.10); RDW 17.2 % (11.5-14.5); WBC 7.9 10x3/uL (4.8-10.8)
[2018-07-31 07:37] LABS: CALC OSMOLALITY 261 mosm/kg (275-300); CALCIUM 8.5 mg/dL (8.5-10.1); CARBON DIOXIDE 21.8 mmol/L (21.0-32.0); CHLORIDE - SERUM 98 mmol/L (98-107); CREATININE - SERUM 0.7 mg/dL (0.6-1.3); GLUCOSE 99 mg/dL (74-106); POTASSIUM - SERUM 3.6 mmol/L (3.5-5.1); SODIUM 132 mmol/L (136-145); UREA NITROGEN 5 mg/dL (7-18); eGFR NON AFRICAN AMERICAN > 90 mL/min (90-120)
[2018-07-31 08:00] VITALS: BP 175/91
[2018-07-31 19:24] VITALS: BP 150/86
[2018-08-01 08:16] VITALS: BP 165/91
[2018-08-01 20:00] VITALS: BP 151/79
[2018-08-02 08:00] VITALS: BP 157/83; BP 98/63
[2018-08-02 21:25] VITALS: BP 163/84
[2018-08-03 06:07] LABS: BASOPHILS 1.2 % (0-2); EOSINOPHILS 4.4 % (0-7); HEMATOCRIT 29.3 % (42.0-54.0); HEMOGLOBIN 9.3 g/dL (13.5-17.5); LYMPHOCYTES 21.6 % (15-50); MCH 27.4 pg (26.0-34.0); MCHC 31.7 g/dL (31.0-37.0); MCV 86.4 fL (80.0-100.0); MEAN PLATELET VOLUME 9.8 fL (7.4-10.4); MONOCYTES 22.1 % (2-11); NEUTROPHILS 49.7 % (40-80); RBC 3.39 10x6/uL (4.20-6.10); RDW 17.7 % (11.5-14.5); WBC 8.7 10x3/uL (4.8-10.8)
[2018-08-03 06:12] LABS: PLATELET COUNT 835 10x3/uL (130-400)
[2018-08-03 06:19] LABS: CALC OSMOLALITY 256 mosm/kg (275-300); CALCIUM 8.8 mg/dL (8.5-10.1); CARBON DIOXIDE 22.7 mmol/L (21.0-32.0); CHLORIDE - SERUM 96 mmol/L (98-107); CREATININE - SERUM 0.7 mg/dL (0.6-1.3); GLUCOSE 94 mg/dL (74-106); POTASSIUM - SERUM 4.3 mmol/L (3.5-5.1); SODIUM 129 mmol/L (136-145); UREA NITROGEN 7 mg/dL (7-18); eGFR NON AFRICAN AMERICAN > 90 mL/min (90-120)
[2018-08-03 08:22] VITALS: BP 154/91
[2018-08-03 19:45] VITALS: BP 161/84
[2018-08-04 07:06] LABS: BASOPHILS 1.2 % (0-2); EOSINOPHILS 5.7 % (0-7); HEMATOCRIT 31.6 % (42.0-54.0); HEMOGLOBIN 9.9 g/dL (13.5-17.5); IMMATURE GRANULOCYTES 1.4 % (0-5); LYMPHOCYTES 24.3 % (15-50); MCH 27.7 pg (26.0-34.0); MCHC 31.3 g/dL (31.0-37.0); MEAN PLATELET VOLUME 9.8 fL (7.4-10.4); MONOCYTES 21.3 % (2-11); NEUTROPHILS 46.1 % (40-80); PLATELET COUNT 969 10x3/uL (130-400); RBC 3.57 10x6/uL (4.20-6.10); RDW 17.8 % (11.5-14.5); WBC 7.3 10x3/uL (4.8-10.8)
[2018-08-04 07:14] LABS: CALC OSMOLALITY 257 mosm/kg (275-300); CARBON DIOXIDE 24.4 mmol/L (21.0-32.0); CHLORIDE - SERUM 94 mmol/L (98-107); CREATININE - SERUM 0.8 mg/dL (0.6-1.3); GLUCOSE 101 mg/dL (74-106); POTASSIUM - SERUM 4.3 mmol/L (3.5-5.1); SODIUM 129 mmol/L (136-145); eGFR NON AFRICAN AMERICAN > 90 mL/min (90-120)
[2018-08-04 07:15] LABS: MCV 88.5 fL (80.0-100.0); UREA NITROGEN 9 mg/dL (7-18)
[2018-08-04 08:00] VITALS: BP 177/92
[2018-08-04 19:00] VITALS: BP 185/68
[2018-08-05 08:00] VITALS: BP 143/83
[2018-08-05 22:17] VITALS: BP 131/84
[2018-08-06 08:50] VITALS: BP 159/88
[2018-08-06 20:00] VITALS: BP 143/77
[2018-08-07 07:09] LABS: BASOPHILS 1.3 % (0-2); EOSINOPHILS 5.9 % (0-7); HEMATOCRIT 27.1 % (42.0-54.0); HEMOGLOBIN 8.5 g/dL (13.5-17.5); IMMATURE GRANULOCYTES 0.8 % (0-5); LYMPHOCYTES 23.4 % (15-50); MCH 27.3 pg (26.0-34.0); MCHC 31.4 g/dL (31.0-37.0); MCV 87.1 fL (80.0-100.0); MEAN PLATELET VOLUME 9.1 fL (7.4-10.4); MONOCYTES 19.5 % (2-11); NEUTROPHILS 49.1 % (40-80); PLATELET COUNT 780 10x3/uL (130-400); RBC 3.11 10x6/uL (4.20-6.10); RDW 17.8 % (11.5-14.5); WBC 7.1 10x3/uL (4.8-10.8)
[2018-08-07 07:20] LABS: CALC OSMOLALITY 255 mosm/kg (275-300); CALCIUM 8.4 mg/dL (8.5-10.1); CARBON DIOXIDE 20.6 mmol/L (21.0-32.0); CHLORIDE - SERUM 96 mmol/L (98-107); CREATININE - SERUM 0.8 mg/dL (0.6-1.3); GLUCOSE 103 mg/dL (74-106); POTASSIUM - SERUM 4.6 mmol/L (3.5-5.1); SODIUM 128 mmol/L (136-145); UREA NITROGEN 9 mg/dL (7-18); eGFR NON AFRICAN AMERICAN > 90 mL/min (90-120)
[2018-08-07 21:06] VITALS: BP 141/71
[2018-08-08 14:11] LABS: BASOPHILS 1.9 % (0-2); EOSINOPHILS 5.6 % (0-7); HEMATOCRIT 28.7 % (42.0-54.0); HEMOGLOBIN 8.9 g/dL (13.5-17.5); IMMATURE GRANULOCYTES 0.7 % (0-5); LYMPHOCYTES 24.8 % (15-50); MCH 27.5 pg (26.0-34.0); MCV 88.6 fL (80.0-100.0); MONOCYTES 14.6 % (2-11); NEUTROPHILS 52.4 % (40-80); PLATELET COUNT 724 10x3/uL (130-400); RBC 3.24 10x6/uL (4.20-6.10); RDW 17.2 % (11.5-14.5); WBC 7.5 10x3/uL (4.8-10.8)
[2018-08-08 15:12] LABS: ERYTHROCYTE SEDIMENTATION RATE 75 mm/hr (0-20)
== END 2018-08-08 14:49 | disposition short-term general hospital (02) | DRG 299 ==
LOC: D.REHAB 16:07
PROVIDERS: ADMIT Emergency Medicine
DX: I70.261 Atherosclerosis of native arteries of extremities with gangrene, right leg (principal); A41.89 Other specified sepsis; K29.71 Gastritis, unspecified, with bleeding; F17.203 Nicotine dependence unspecified, with withdrawal; E87.1 Hypo-osmolality and hyponatremia; Z47.81 Encounter for orthopedic aftercare following surgical amputation; Z89.511 Acquired absence of right leg below knee; T81.89XD Other complications of procedures, not elsewhere classified, subsequent encounter; D50.9 Iron deficiency anemia, unspecified; F10.20 Alcohol dependence, uncomplicated; I70.213 Atherosclerosis of native arteries of extremities with intermittent claudication, bilateral legs; E87.8 Other disorders of electrolyte and fluid balance, not elsewhere classified; I10 Essential (primary) hypertension; K29.80 Duodenitis without bleeding; Z86.19 Personal history of other infectious and parasitic diseases; G89.29 Other chronic pain; E87.6 Hypokalemia; I25.10 Atherosclerotic heart disease of native coronary artery without angina pectoris

== ENCOUNTER 2018-08-08 14:28 | Inpatient (IN) | payer MEDICARE ==
[~2018-08-08] VITALS: Ht 165.1 cm; Wt 62.6 kg
[2018-08-08 15:28] VITALS: BP 131/68
[2018-08-08 17:00] VITALS: BP 131/68; BMI 23.0
[2018-08-08 21:45] VITALS: BP 155/91
[2018-08-09 04:37] VITALS: BP 158/85
[2018-08-09 05:12] LABS: BASOPHILS 2.1 % (0-2); EOSINOPHILS 6.2 % (0-7); HEMATOCRIT 26.6 % (42.0-54.0); HEMOGLOBIN 8.3 g/dL (13.5-17.5); IMMATURE GRANULOCYTES 0.6 % (0-5); LYMPHOCYTES 24.2 % (15-50); MCH 27.4 pg (26.0-34.0); MCHC 31.2 g/dL (31.0-37.0); MCV 87.8 fL (80.0-100.0); MEAN PLATELET VOLUME 9.1 fL (7.4-10.4); NEUTROPHILS 46.9 % (40-80); PLATELET COUNT 719 10x3/uL (130-400); RBC 3.03 10x6/uL (4.20-6.10); RDW 17.3 % (11.5-14.5); WBC 6.6 10x3/uL (4.8-10.8)
[2018-08-09 05:23] LABS: CALC OSMOLALITY 257 mosm/kg (275-300); CALCIUM 9.2 mg/dL (8.5-10.1); CARBON DIOXIDE 24.8 mmol/L (21.0-32.0); CHLORIDE - SERUM 96 mmol/L (98-107); CREATININE - SERUM 0.8 mg/dL (0.6-1.3); GLUCOSE 103 mg/dL (74-106); POTASSIUM - SERUM 4.6 mmol/L (3.5-5.1); SODIUM 129 mmol/L (136-145); UREA NITROGEN 11 mg/dL (7-18); eGFR NON AFRICAN AMERICAN > 90 mL/min (90-120)
[2018-08-09 09:08] VITALS: BP 161/93
[2018-08-09 15:00] VITALS: BP 151/82
[2018-08-10 03:00] VITALS: BP 132/62
[2018-08-10 06:52] LABS: BASOPHILS 1.7 % (0-2); EOSINOPHILS 3.4 % (0-7); HEMATOCRIT 23.5 % (42.0-54.0); IMMATURE GRANULOCYTES 0.6 % (0-5); LYMPHOCYTES 19.6 % (15-50); MCH 26.8 pg (26.0-34.0); MCHC 30.2 g/dL (31.0-37.0); MCV 88.7 fL (80.0-100.0); MEAN PLATELET VOLUME 9.3 fL (7.4-10.4); MONOCYTES 18.9 % (2-11); NEUTROPHILS 55.8 % (40-80); PLATELET COUNT 603 10x3/uL (130-400); RBC 2.65 10x6/uL (4.20-6.10); RDW 17.5 % (11.5-14.5)
[2018-08-10 07:02] LABS: CALC OSMOLALITY 258 mosm/kg (275-300); CALCIUM 8.2 mg/dL (8.5-10.1); CARBON DIOXIDE 22.5 mmol/L (21.0-32.0); CHLORIDE - SERUM 94 mmol/L (98-107); CREATININE - SERUM 0.8 mg/dL (0.6-1.3); GLUCOSE 111 mg/dL (74-106); SODIUM 129 mmol/L (136-145); UREA NITROGEN 9 mg/dL (7-18); eGFR NON AFRICAN AMERICAN > 90 mL/min (90-120)
[2018-08-10 07:03] LABS: POTASSIUM - SERUM 3.8 mmol/L (3.5-5.1)
[2018-08-10 07:17] LABS: HEMOGLOBIN 7.1 g/dL (13.5-17.5)
[2018-08-10 08:06] VITALS: BP 128/73
[2018-08-10 13:41] VITALS: Ht 165.1 cm; Wt 62.6 kg
[2018-08-11] VITALS: BP 154/84
[2018-08-11 04:00] VITALS: BP 167/88
[2018-08-11 05:54] LABS: BASOPHILS 1.2 % (0-2); EOSINOPHILS 3.7 % (0-7); IMMATURE GRANULOCYTES 0.5 % (0-5); LYMPHOCYTES 20.6 % (15-50); MCH 27.8 pg (26.0-34.0); MCHC 32.7 g/dL (31.0-37.0); MEAN PLATELET VOLUME 9.3 fL (7.4-10.4); PLATELET COUNT 533 10x3/uL (130-400); RDW 17.3 % (11.5-14.5); WBC 7.4 10x3/uL (4.8-10.8)
[2018-08-11 05:59] LABS: HEMOGLOBIN 9.8 g/dL (13.5-17.5); RBC 3.53 10x6/uL (4.20-6.10)
[2018-08-11 06:17] LABS: CALC OSMOLALITY 259 mosm/kg (275-300); CALCIUM 8.5 mg/dL (8.5-10.1); CARBON DIOXIDE 24.2 mmol/L (21.0-32.0); CHLORIDE - SERUM 95 mmol/L (98-107); CREATININE - SERUM 0.8 mg/dL (0.6-1.3); GLUCOSE 87 mg/dL (74-106); POTASSIUM - SERUM 3.7 mmol/L (3.5-5.1); SODIUM 131 mmol/L (136-145); eGFR NON AFRICAN AMERICAN > 90 mL/min (90-120)
[2018-08-11 06:19] LABS: UREA NITROGEN 6 mg/dL (7-18)
[2018-08-11 08:28] VITALS: BP 176/87
[2018-08-11 12:48] VITALS: BP 144/65
[2018-08-11 15:41] VITALS: BP 170/71
[2018-08-11 19:00] VITALS: BP 149/84
[2018-08-12 01:26] VITALS: BP 124/56
[2018-08-12 04:29] LABS: BASOPHILS 1.1 % (0-2); EOSINOPHILS 5.3 % (0-7); HEMATOCRIT 28.6 % (42.0-54.0); HEMOGLOBIN 9.3 g/dL (13.5-17.5); IMMATURE GRANULOCYTES 0.6 % (0-5); LYMPHOCYTES 22.2 % (15-50); MCH 27.8 pg (26.0-34.0); MCHC 32.5 g/dL (31.0-37.0); MCV 85.4 fL (80.0-100.0); MEAN PLATELET VOLUME 9.3 fL (7.4-10.4); MONOCYTES 18.5 % (2-11); NEUTROPHILS 52.3 % (40-80); PLATELET COUNT 481 10x3/uL (130-400); RBC 3.35 10x6/uL (4.20-6.10); RDW 17.1 % (11.5-14.5)
[2018-08-12 04:45] LABS: CALC OSMOLALITY 264 mosm/kg (275-300); CALCIUM 8.4 mg/dL (8.5-10.1); CARBON DIOXIDE 22.3 mmol/L (21.0-32.0); CHLORIDE - SERUM 99 mmol/L (98-107); CREATININE - SERUM 0.8 mg/dL (0.6-1.3); GLUCOSE 106 mg/dL (74-106); POTASSIUM - SERUM 3.2 mmol/L (3.5-5.1); SODIUM 134 mmol/L (136-145); eGFR NON AFRICAN AMERICAN > 90 mL/min (90-120)
[2018-08-12 04:51] LABS: UREA NITROGEN 4 mg/dL (7-18)
[2018-08-12 05:01] VITALS: BP 141/82
[2018-08-12 08:35] VITALS: BP 146/96
[2018-08-12 12:00] VITALS: BP 164/91
--- NOTE | 2018-08-12 12:39 | MORECARE ---
CASE MANAGEMENT DISCHARGE SUMMARY PATIENT: TONIA MCCARTNEY UNIT: [id number] ADM DATE: 08/08/18 AGE: 58 : 60 SEX: M ROOM/BED: D.2226 AUTHOR: JACI KELLY PHYSICIAN: REFERRING PHYSICIAN: CL INIGUEZ MD DATE OF SERVICE: 08/12/18 Discharge Plan Patient Name: TONIA MCCARTNEY [facility] [facility] 1960 Planned Disposition: Alf Facility Anticipated Discharge Date: Discharge Date: Expected LOS: Initial Reviewer: [email or web address] Initial Review Date: 08/12/2018 Generated: 08/12/18 1:39 pm DCPIA - Discharge Planning Initial Assessment Updated by [email or web address]: Jennifer Bagley on 08/12/18 12:36 pm * Is the patient Alert and Oriented? Yes * PCP Dr. Iniguez * [facility] * Preadmission Environment Acute Inpatient Rehab * Facility Name [facility] * ADLs Partial Dependent * Partial ADLs (Assistance needed) Ambulation * Equipment Rolling Walker Walker Wheelchair * List name and contact numbers for known caregivers / representatives who currently or will assist patient after discharge: Sherita [facility] - [phone] * Verbal permission to speak to the caregivers and representatives has been obtained from the patient. Yes * Community resources currently utilized None * Additional services required to return to the preadmission environment? Yes * Can the patient safely return to the preadmission environment? No * Has this patient been hospitalized within the prior 30 days at any hospital? Yes Patient Name: TONIA MCCARTNEY Page 19146 at 1239 All edits/amendments must be made on the electronic document DICTATION DATE: 08/12/18 1239 SKINNING MACHINE FEEDER: ALVARADO 08/12/18 1239 RPT#: [id number] DC DATE: STATUS: ADM IN [facility] [address] [place] [address] END OF REPORT
--- NOTE | 2018-08-12 12:49 | MORECARE ---
CASE MANAGEMENT DISCHARGE SUMMARY PATIENT: TONIA MCCARTNEY UNIT: [id number] ADM DATE: 08/08/18 AGE: 58 : 60 SEX: M ROOM/BED: D.2226 AUTHOR: ROBIN,DOC PHYSICIAN: REFERRING PHYSICIAN: CL INIGUEZ MD DATE OF SERVICE: 08/12/18 Discharge Plan Patient Name: TONIA MCCARTNEY Facility: [facility]:[place] : 1960 Planned Disposition: Senior Living Facility Anticipated Discharge Date: Discharge Date: Expected LOS: Initial Reviewer: [email or web address] Initial Review Date: 08/12/2018 Generated: 08/12/18 1:49 pm Comments DCP- Discharge Planning Updated by [email or web address]: Jennifer Bagley on 08/12/18 11:[address] Patient Name: TONIA MCCARTNEY Admission Status: Elective Accout number: [id number] Admission Date: 08-08-2018 : 1960 Admission Diagnosis: Attending: CL INIGUEZ Current LOS: 4 Anticipated DC Date: Planned Disposition: Senior Living Facility Primary Insurance: MEDICARE A & B Discharge Planning Comments: CM met with patient, he is alone in the room. He states he lives with his sister prior to coming to the hospital. States he has been talking to his ex- "Carmen" about going to [facility] when he leaves here. WEI for [facility] signed. I called [facility] and Carmen is at lunch, message left on her voice mail. Clinical faxed. CM will continue to follow and assist with discharge planning/needs. Manager Pmo: Jennifer Bagley DCPIA - Discharge Planning Initial Assessment Updated by [email or web address]: Jennifer Bagley on 08/12/18 12:36 pm * Is the patient Alert and Oriented? Yes * PCP Dr. Iniguez * [facility] * Preadmission Environment Acute Inpatient Rehab * Facility [facility] * ADLs Partial Dependent * Partial ADLs (Assistance needed) Ambulation * Equipment Rolling Walker Walker Wheelchair * List name and contact numbers for known caregivers / representatives who currently or will assist patient after discharge: Sherita [facility] [phone] * Verbal permission to speak to the caregivers and representatives has been obtained from the patient. Yes * Community resources currently utilized None * Additional services required to return to the preadmission environment? Yes * Can the patient safely return to the preadmission environment? No * Has this patient been hospitalized within the prior 30 days at any hospital? Yes Last DP export: 08/12/18 11:39 am Patient Name: TONIA MCCARTNEY Page [phone] at 1249 All edits/amendments must be made on the electronic document DICTATION DATE: 08/12/181247 NON DESTRUCTIVE TESTING SPECIALIST: ALVARADO 08/12/188 RPT#: [id number] DC DATE: STATUS: ADM IN [facility] [address] [place] [address] END OF REPORT
--- NOTE | 2018-08-12 13:17 | MORECARE ---
CASE MANAGEMENT DISCHARGE SUMMARY PATIENT: TONIA MCCARTNEY UNIT: [id number] ADM DATE: 08/08/18 AGE: 58 : 60 SEX: M ROOM/BED: D.2226 AUTHOR: ROBIN,DOC PHYSICIAN: REFERRING PHYSICIAN: CL INIGUEZ MD DATE OF SERVICE: 08/12/18 Discharge Plan Patient Name: TONIA MCCARTNEY Facility: [facility]:[place] : 1960 Planned Disposition: Nursing Home Facility Anticipated Discharge Date: Discharge Date: Expected LOS: Initial Reviewer: [email or web address] Initial Review Date: 08/12/2018 Generated: 08/12/18 2:17 pm Comments DCP- Discharge Planning Updated by [id number]: Jennifer Bagley on 08/12/18 11:[address] Patient Name: TONIA MCCARTNEY Admission Status: Elective Accout number: [id number] Admission Date: 08-08-2018 : 1960 Admission Diagnosis: Attending: CL INIGUEZ Current LOS: 4 Anticipated DC Date: Planned Disposition: Nursing Home Facility Primary Insurance: MEDICARE A & B Discharge Planning Comments: CM met with patient, he is alone in the room. He states he lives with his sister prior to coming to the hospital. States he has been talking to his ex- "Carmen" about going to [facility] when he leaves here. WEI for [facility] signed. I called [facility] and Carmen is at lunch, message left on her voice mail. Clinical faxed. CM will continue to follow and assist with discharge planning/needs. Senior Java Programmer Analyst: Jennifer Bagley DCPIA - Discharge Planning Initial Assessment Updated by [email or web address]: Jennifer Bagley on 08/12/18 12:36 pm * Is the patient Alert and Oriented? Yes * PCP Dr. Iniguez * [facility] * Preadmission Environment Acute Inpatient Rehab * Facility Name [facility] * ADLs Partial Dependent * Partial ADLs (Assistance needed) Ambulation * Equipment Rolling Walker Walker Wheelchair * List name and contact numbers for known caregivers / representatives who currently or will assist patient after discharge: Sherita [facility] [phone] * Verbal permission to speak to the caregivers and representatives has been obtained from the patient. Yes * Community resources currently utilized None * Additional services required to return to the preadmission environment? Yes * Can the patient safely return to the preadmission environment? No * Has this patient been hospitalized within the prior 30 days at any hospital? Yes External Providers External Provider: [facility] Next Contact Date: Service Request Date: Service Type: Resolution: Reviewer: Comments: Last DP export: 08/12/18 11:49 am Patient Name: TONIA MCCARTNEY Page [phone] at 1317 All edits/amendments must be made on the electronic document DICTATION DATE: 08/12/181316 RN TRAUMA: ALVARADO 08/12/187 RPT#: [id number] DC DATE: STATUS: ADM IN [facility] [address] [place] [address] END OF REPORT
[2018-08-12 16:00] VITALS: BP 121/79
[2018-08-12 21:37] VITALS: BP 134/73
[2018-08-13 01:25] VITALS: BP 145/88
[2018-08-13 04:50] VITALS: BP 140/70
[2018-08-13 07:01] LABS: CALC OSMOLALITY 264 mosm/kg (275-300); CALCIUM 8.6 mg/dL (8.5-10.1); CARBON DIOXIDE 22.2 mmol/L (21.0-32.0); CHLORIDE - SERUM 99 mmol/L (98-107); CREATININE - SERUM 0.7 mg/dL (0.6-1.3); GLUCOSE 100 mg/dL (74-106); POTASSIUM - SERUM 3.1 mmol/L (3.5-5.1); SODIUM 134 mmol/L (136-145); UREA NITROGEN 4 mg/dL (7-18); eGFR NON AFRICAN AMERICAN > 90 mL/min (90-120)
[2018-08-13 07:42] LABS: HEMATOCRIT 28.1 % (42.0-54.0); HEMOGLOBIN 9.3 g/dL (13.5-17.5); LYMPHOCYTES 27.1 % (15-50); MCH 28.6 pg (26.0-34.0); MCHC 33.1 g/dL (31.0-37.0); MCV 86.5 fL (80.0-100.0); MEAN PLATELET VOLUME 9.3 fL (7.4-10.4); NEUTROPHILS 51.2 % (40-80); PLATELET COUNT 469 10x3/uL (130-400); RBC 3.25 10x6/uL (4.20-6.10)
[2018-08-13 07:45] LABS: WBC 12.2 10x3/uL (4.8-10.8)
[2018-08-13 09:26] VITALS: BP 195/101
[2018-08-13 10:28] LABS: MAGNESIUM - SERUM 1.6 mg/dL (1.8-2.4); PHOSPHOROUS 3.9 mg/dL (2.5-4.9)
--- NOTE | 2018-08-13 12:33 | MORECARE ---
CASE MANAGEMENT DISCHARGE SUMMARY PATIENT: TONIA MCCARTNEY UNIT: [id number] ADM DATE: 08/08/18 AGE: 58 : 60 SEX: M ROOM/BED: D.2226 AUTHOR: ROBIN,DOC PHYSICIAN: REFERRING PHYSICIAN: CL INIGUEZ MD DATE OF SERVICE: 08/13/18 Discharge Plan Patient Name: TONIA MCCARTNEY Facility: [facility]:[place] : 1960 Planned Disposition: Halfway Facility Anticipated Discharge Date: Discharge Date: Expected LOS: Initial Reviewer: [email or web address] Initial Review Date: 08/12/2018 Generated: 08/13/18 1:33 pm Comments DCP- Discharge Planning Updated by [email or web address]: Jennifer Bagley on 08/13/18 11:[address] Spoke with Jannet at [facility], Carmen is unavailable at this time, about discharging there today for detention. Jannet states she knows he has been accepted, but will have Carmen return my call. CM will continue to follow and assist with discharge planning/needs. DCP- Discharge Planning Updated by [email or web address]: Jennifer Bagley on 08/12/18 11:[address] Patient Name: TONIA MCCARTNEY Admission Status: Elective Accout number: [id number] Admission Date: 08-08-2018 : 1960 Admission Diagnosis: Attending: CL INIGUEZ Current LOS: 4 Anticipated DC Date: Planned Disposition: Halfway Facility Primary Insurance: MEDICARE A & B Discharge Planning Comments: CM met with patient, he is alone in the room. He states he lives with his sister prior to coming to the hospital. States he has been talking to his ex- "Carmen" about going to [facility] when he leaves here. WEI for [facility] signed. I called Robert and Carmen is at lunch, message left on her voice mail. Clinical faxed. CM will continue to follow and assist with discharge planning/needs. Dairy Farm Operator: Jennifer Bagley DCPIA - Discharge Planning Initial Assessment Updated by [email or web address]: Jennifer Bagley on 08/12/18 12:36 pm * Is the patient Alert and Oriented? Yes * PCP Dr. Iniguez * [facility] * Preadmission Environment Acute Inpatient Rehab * Facility Name [facility] * ADLs Partial Dependent * Partial ADLs (Assistance needed) Ambulation * Equipment Rolling Walker Walker Wheelchair * List name and contact numbers for known caregivers / representatives who currently or will assist patient after discharge: Sherita mccain - [phone] * Verbal permission to speak to the caregivers and representatives has been obtained from the patient. Yes * Community resources currently utilized None * Additional services required to return to the preadmission environment? Yes * Can the patient safely return to the preadmission environment? No * Has this patient been hospitalized within the prior 30 days at any hospital? Yes Last DP export: 08/12/18 12:17 pm Patient Name: TONIA MCCARTNEY Page [id number] at 1233 All edits/amendments must be made on the electronic document DICTATION DATE: 08/13/18 1232 ASSISTANT FITNESS MANAGER: ALVARADO 08/13/18 1232 RPT#: [id number] DC DATE: STATUS: ADM IN [facility] [address] [place] [address] END OF REPORT
[2018-08-13] MEDS ORDERED: OXYCODONE HCL5 M1 PO (12:46)
[2018-08-13] MEDS ORDERED: VIBRAMYCIN 100100 MG PO (13:52)
[2018-08-13 14:04] VITALS: BP 162/80
--- NOTE | 2018-08-13 15:01 | MORECARE ---
CASE MANAGEMENT DISCHARGE SUMMARY PATIENT: TONIA MCCARTNEY UNIT: [id number] ADM DATE: 08/08/18 AGE: 58 : 60 SEX: M ROOM/BED: D.2226 AUTHOR: JACI KELLY PHYSICIAN: REFERRING PHYSICIAN: CL INIGUEZ MD DATE OF SERVICE: 08/13/18 Discharge Plan Patient Name: TONIA MCCARTNEY Facility: [facility]:[place] : 1960 Planned Disposition: Shelter Facility Anticipated Discharge Date: Discharge Date: Expected LOS: Initial Reviewer: [email or web address] Initial Review Date: 08/12/2018 Generated: 08/13/18 4:01 pm Comments DCP- Discharge Planning Updated by [email or web address]: Jennifer Bagley on 08/13/18 1:[address] Spoke with Carmen with [facility]. She is attempting to call patient's son (which is also her son) to have him sign paper work for admission. Discharge med list and MAR faxed to her per request. Awaiting a pick pulling machine tender time. He will be discharging today to a skilled (Medicare) bed at [facility]. CM will continue to follow and assist with discharge planning/needs. DCP- Discharge Planning Updated by [email or web address]: Jennifer Bagley on 08/13/18 11:[address] Spoke with Jannet at [facility], Carmen is unavailable at this time, about discharging there today for [facility]. Jannet states she knows he has been accepted, but will have Carmen return my call. CM will continue to follow and assist with discharge planning/needs. DCP- Discharge Planning Updated by [email or web address]: Jennifer Bagley on 08/12/18 11:[address] Patient Name: TONIA MCCARTNEY Admission Status: Elective Accout number: [id number] Admission Date: 08-08-2018 : 1960 Admission Diagnosis: Attending: CL INIGUEZ Current LOS: 4 Anticipated DC Date: Planned Disposition: Shelter Facility Primary Insurance: MEDICARE A & B Discharge Planning Comments: CM met with patient, he is alone in the room. He states he lives with his sister prior to coming to the hospital. States he has been talking to his ex- "Carmen" about going to [facility] when he leaves here. WEI for [facility] signed. I called Robert and Carmen is at lunch, message left on her voice mail. Clinical faxed. CM will continue to follow and assist with discharge planning/needs. Sap Pp Consultant: Jennifer Bagley DCPIA - Discharge Planning Initial Assessment Updated by [email or web address]: Jennifer Yudi on 08/12/18 12:36 pm * Is the patient Alert and Oriented? Yes * PCP Dr. Iniguez * [facility] * Preadmission Environment Acute Inpatient Rehab * Facility Name [facility] * ADLs Partial Dependent * Partial ADLs (Assistance needed) Ambulation * Equipment Rolling Walker Walker Wheelchair * List name and contact numbers for known caregivers / representatives who currently or will assist patient after discharge: Sherita mccain [phone] * Verbal permission to speak to the caregivers and representatives has been obtained from the patient. Yes * Community resources currently utilized None * Additional services required to return to the preadmission environment? Yes * Can the patient safely return to the preadmission environment? No * Has this patient been hospitalized within the prior 30 days at any hospital? Yes Coverage Notice Reviewer: [id number] - Jennifer Bagley Notice Issued Date-Time: 08/13/2018 14:17 Notice Type: IM Discharge Notice Notice Delivered To: Patient Relationship to Patient: Self Software Tester Name: Delivery Method: HAND - Hand Delivered Margi Days: Prior Verbal Notification: Recipient Understood Notice: Yes Recipient Signature: Yes Med Rec Note Co-signed by Attending: Coverage Notice Comment: IMM explained, signed, copy given, original placed in MR Last DP export: 08/13/18 11:33 a Patient Name: TONIA MCCARTNEY Page [id number] at 1501 All edits/amendments must be made on the electronic document DICTATION DATE: 08/13/181500 CONVERSION MAN: ALVARADO 08/13/18 1501 RPT#: [id number] DC DATE: STATUS: ADM IN [facility] [address] [place] [address] END OF REPORT
--- NOTE | 2018-08-14 17:18 | MORECARE ---
CASE MANAGEMENT DISCHARGE SUMMARY PATIENT: TONIA MCCARTNEY UNIT: [id number] ADM DATE: 08/08/18 AGE: 58 : 60 SEX: M ROOM/BED: D.2226 AUTHOR: ROBIN,DOC PHYSICIAN: REFERRING PHYSICIAN: CL INIGUEZ MD DATE OF SERVICE: 08/14/18 Discharge Plan Patient Name: TONIA MCCARTNEY Facility: [facility]:[place] : 1960 Planned Disposition: Long-Term Facility Anticipated Discharge Date: Discharge Date: 08/13/2018 Expected LOS: 0 Initial Reviewer: [email or web address] Initial Review Date: 08/12/2018 Generated: 08/14/18 6:18 pm Comments DCP- Discharge Planning Updated by [email or web address]: Jennifer Bagley on 08/13/18 1:[address] Spoke with Carmen with [facility]. She is attempting to call patient's son (which is also her son) to have him sign paper work for admission. Discharge med list and MAR faxed to her per request. Awaiting a picker tender helper time. He will be discharging today to a skilled (Medicare) bed at [facility]. CM will continue to follow and assist with discharge planning/needs. DCP- Discharge Planning Updated by [email or web address]: Jennifer Bagley on 08/13/18 11:[address] Spoke with Jannet at [facility], Carmen is unavailable at this time, about discharging there today for longterm. Jannet states she knows he has been accepted, but will have Carmen return my call. CM will continue to follow and assist with discharge planning/needs. DCP- Discharge Planning Updated by [email or web address]: Jennifer Bagley on 08/12/18 11:[address] Patient Name: TONIA MCCARTNEY Admission Status: Elective Accout number: [id number] Admission Date: 08-08-2018 : 1960 Admission Diagnosis: Attending: CL INIGUEZ Current LOS: 4 Anticipated DC Date: Planned Disposition: Long-Term Facility Primary Insurance: MEDICARE A & B Discharge Planning Comments: CM met with patient, he is alone in the room. He states he lives with his sister prior to coming to the hospital. States he has been talking to his ex- "Carmen" about going to [facility] when he leaves here. WEI for [facility] signed. I called Robert and Carmen is at lunch, message left on her voice mail. Clinical faxed. CM will continue to follow and assist with discharge planning/needs. Plunger Shovel Operator: Jennifer Bagley DCPIA - Discharge Planning Initial Assessment Updated by [email or web address]: Jennifer Bagley on 08/12/18 12:36 pm * Is the patient Alert and Oriented? Yes * PCP Dr. Iniguez * [facility] * Preadmission Environment Acute Inpatient Rehab * Facility Name [facility] * ADLs Partial Dependent * Partial ADLs (Assistance needed) Ambulation * Equipment Rolling Walker Walker Wheelchair * List name and contact numbers for known caregivers / representatives who currently or will assist patient after discharge: Sherita mccain - [phone] * Verbal permission to speak to the caregivers and representatives has been obtained from the patient. Yes * Community resources currently utilized None * Additional services required to return to the preadmission environment? Yes * Can the patient safely return to the preadmission environment? No * Has this patient been hospitalized within the prior 30 days at any hospital? Yes Coverage Notice Reviewer: [id number] - Jennifer Bagley Notice Issued Date-Time: 08/13/2018 14:17 Notice Type: IM Discharge Notice Notice Delivered To: Patient Relationship to Patient: Self Assessment Manager Name: Delivery Method: HAND - Hand Delivered Margi Days: Prior Verbal Notification: Recipient Understood Notice: Yes Recipient Signature: Yes Med Rec Note Co-signed by Attending: Coverage Notice Comment: IMM explained, signed, copy given, original placed in MR Last DP export: 08/13/18 2:01 p Patient Name: TONIA MCCARTNEY Page 23184 at 1718 All edits/amendments must be made on the electronic document DICTATION DATE: 08/14/181717 HIGH SCHOOL GUIDANCE COUNSELOR: ALVARADO 08/14/181717 RPT#: [id number] DC DATE:08/13/18 STATUS: DIS IN [facility] [address] [facility] [place] [address] END OF REPORT
== END 2018-08-13 17:16 | DRG 475 ==
LOC: D.MS 14:28
PROVIDERS: Emergency Medicine; Orthopaedic Surgery; ADMIT Internal Medicine Nephrology
PROC: 0Y6H0Z2 Detachment at Right Lower Leg, Mid, Open Approach (ICD-10-PCS; principal; 2018-08-09 12:28)
DX: T87.43 Infection of amputation stump, right lower extremity (principal); E87.1 Hypo-osmolality and hyponatremia; F17.213 Nicotine dependence, cigarettes, with withdrawal; D62 Acute posthemorrhagic anemia; I10 Essential (primary) hypertension; K21.9 Gastro-esophageal reflux disease without esophagitis

== ENCOUNTER 2018-09-23 10:54 | Emergency (ER) | payer MEDICARE ==
[~2018-09-23] VITALS: Ht 165.1 cm; Wt 59.1 kg
[~2018-09-23 10:54] MED LIST changes: +OXYCODONE HCL5 M1 PO
[2018-09-23 11:02] VITALS: Ht 165.1 cm; Wt 59.1 kg
[2018-09-23 13:30] VITALS: BP 149/75
== END 2018-09-23 13:21 | disposition home or self-care (01) ==
LOC: D.ER 10:54
DX: Z89.511 Acquired absence of right leg below knee (principal); I73.9 Peripheral vascular disease, unspecified; F17.200 Nicotine dependence, unspecified, uncomplicated

== ENCOUNTER 2018-10-01 07:55 | Emergency (ER) | payer MEDICARE ==
[~2018-10-01] VITALS: Ht 165.1 cm; Wt 63.0 kg
[2018-10-01 08:00] VITALS: BP 168/89; Ht 165.1 cm; Wt 63.0 kg
== END 2018-10-01 08:27 | disposition other institution (70) ==
LOC: D.ER 07:55
DX: T87.89 Other complications of amputation stump (principal)

== ENCOUNTER 2018-10-08 08:23 | Inpatient (IN) | payer MEDICARE ==
[~2018-10-08] VITALS: Ht 165.1 cm; Wt 61.2 kg
[2018-10-08 09:37] LABS: BASOPHILS 0.4 % (0-2); EOSINOPHILS 1.8 % (0-7); HEMATOCRIT 20.7 % (42.0-54.0); IMMATURE GRANULOCYTES 0.4 % (0-5); LYMPHOCYTES 14.3 % (15-50); MCH 25.4 pg (26.0-34.0); MCHC 31.9 g/dL (31.0-37.0); MCV 79.6 fL (80.0-100.0); MEAN PLATELET VOLUME 8.8 fL (7.4-10.4); MONOCYTES 16.2 % (2-11); NEUTROPHILS 66.9 % (40-80); WBC 9.4 10x3/uL (4.8-10.8)
[2018-10-08 09:39] LABS: PLATELET COUNT 703 10x3/uL (130-400)
[2018-10-08 09:46] LABS: HEMOGLOBIN 6.6 g/dL (13.5-17.5)
[2018-10-08 10:00] LABS: ALKALINE PHOSPHATASE 128 U/L (46-116); ALT (SGPT) 74 U/L (10-68); BILIRUBIN - TOTAL 0.26 mg/dL (0.2-1.3); CALC OSMOLALITY 240 mosm/kg (275-300); CALCIUM 8.3 mg/dL (8.5-10.1); CHLORIDE - SERUM 88 mmol/L (98-107); CREATININE - SERUM 0.7 mg/dL (0.6-1.3); GLUCOSE 89 mg/dL (74-106); POTASSIUM - SERUM 3.9 mmol/L (3.5-5.1); PROTEIN - SERUM 7.8 g/dL (6.4-8.2); SODIUM 121 mmol/L (136-145); UREA NITROGEN 6 mg/dL (7-18); eGFR NON AFRICAN AMERICAN > 90 mL/min (90-120)
[2018-10-08 10:24] LABS: % SATURATION 2 % (15-55); IRON 9 ug/dl (35-150); TOTAL IRON BIND CAPACITY 303 ug/dl (260-445); UNSAT IRON BIND CAPACITY 294 ug/dl (150-375)
[2018-10-08 10:30] VITALS: BP 146/82
[2018-10-08 10:30] LABS: INR 1.34 (0.85-1.17)
[2018-10-08 10:36] LABS: CKMB 8.5 U/L (0.0-3.6); FERRITIN 205 ng/mL (3-244); TROPONIN-I 0.042 ng/mL (0.000-0.060)
[2018-10-08 10:37] LABS: CREATINE KINASE 995 UL (21-232)
--- NOTE | 2018-10-08 11:18 | MORECARE ---
CASE MANAGEMENT DISCHARGE SUMMARY PATIENT: TONIA MCCARTNEY UNIT: [id number] ADM DATE: 10/08/18 AGE: 58 : 60 SEX: M ROOM/BED: D.E06 AUTHOR: JACI KELLY PHYSICIAN: REFERRING PHYSICIAN: GOOD MEEK MD DATE OF SERVICE: 10/08/18 Discharge Plan Patient Name: TONIA MCCARTNEY Facility: [facility]:[place] : 1960 Planned Disposition: Inpatient Rehab Anticipated Discharge Date: 10/12/18 Discharge Date: Expected LOS: 4 Initial Reviewer: [email or web address] Initial Review Date: 10/08/2018 Generated: 10/08/18 12:18 pm DCP- Discharge Planning Updated by [email or web address]: Jamila Fink on 10/08/18 10:[address] Patient Name: TONIA MCCARTNEY Admission Status: ER Accout number: [id number] Admission Date: 10-08-2018 : 1960 Admission Diagnosis: Attending: GOOD MEEK Current LOS: 1 Anticipated DC Date: 10-12-2018 Planned Disposition: Inpatient Rehab Primary Insurance: MEDICARE A & B Discharge Planning Comments: CM met with patient and his son Brennen to complete initial dc planning assessment. CM educated patient and Brennen on the CM role and verbal consent given by patient to complete assessment. Patient lives his son's house at this time. He was recently at [facility] but wanted to leave so Brennen took him to his home. 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 [facility] is his current home health agency. Brennen reports that the patient is total care and he needs to return to rehab. WEI discussed and signed by Brennen for CAR ATTENDANT Inpatient Rehab and [facility]. The patient stated he didn't want to go back to [facility] but Brennen told him he didn't have a choice. Brennen and his both work and are not able to be with the patient all the time. Brennen reports that his Mone Mccartney has power of health care attorney. Signed form placed in patient's chart. Explained to Brennen that once the patient is medically stable we will begin the process of getting him into rehab. CM will continue to follow and will assist as needed with dc plans/needs. Tooling Manager: Jamila Fink RN, [facility] DCPIA - Discharge Planning Initial Assessment Updated by [email or web address]: Jamila Fink on 10/08/18 11:10 am * Is the patient Alert and Oriented? Yes * How many steps to enter\exit or inside your home? * PCP Dr. Grant * Pharmacy [facility] [address] * Preadmission Environment Home with Family * ADLs Total Dependent * Equipment Rolling Walker Wheelchair * List name and contact numbers for known caregivers / representatives who currently or will assist patient after discharge: Mone Mccartney POA - dtr in law - [phone] Kevin Brennen [facility] - [phone] * Verbal permission to speak to the caregivers and representatives has been obtained from the patient. Yes * Community resources currently utilized Home Health * Please name any agencies selected above. [facility] * Additional services required to return to the preadmission environment? Yes * Can the patient safely return to the preadmission environment? No * Has this patient been hospitalized within the prior 30 days at any hospital? No Patient Name: TONIA MCCRATNEY Page 04903 at 1118 All edits/amendments must be made on the electronic document DICTATION DATE: 10/08/181116 WEB APPLICATIONS PROGRAMMER: ALVARADO 10/08/181116 RPT#: [id number] DC DATE: STATUS: ADM IN [facility] [address] [place] [address] END OF REPORT
--- NOTE | 2018-10-08 11:41 | NUR ---
NS 250ML BAG REMOVED FROM PYXIS FOR ORDERED BLOOD TRANSFUSION.
--- NOTE | 2018-10-08 11:54 | NUR ---
BLOOD CONSENT FORM SIGNED AND WITNESSED BY FELLOW RN. ORDERED BLOOD TRANSFUSION INITIATED AT 1150. ROOM 2228 ASSIGNED AT 1048. REPORT CALLED TO WOODY COOK AT 1130. WILL TRANSFER PT TO ASSIGNED ROOM SHORTLY.
--- NOTE | 2018-10-08 12:14 | NUR ---
OCCULT BLOOD STOOL SAMPLE POSITIVE AT 1040. DR. LEWIS NOTIFIED.
[2018-10-08 13:48] VITALS: BP 150/68
[2018-10-08 16:47] VITALS: BP 111/89
[2018-10-08 20:00] VITALS: BP 129/64
--- NOTE | 2018-10-08 20:00 | NUR ---
PT SITTING UP IN BEDSIDE CHAIR WITHOUT DISTRESS, ALERT AND ORIENTED. IV RIGHT FA INFUSING BANANA BAG @ 125 W/ MORPHINE FURNACE CLERK. RIGHT BKA. PT TEMP 103. CALLED [facility], ORDERED TYLENOL 500MG Q6HPRN. GAVE TYLENOL TO PT, RECHECK 99.7. GAVE PT SANDWICH TRAY UPON REQUEST. PT REFUSES TO GET INTO BED, STATES CHAIR IS MORE COMFORTABLE. CHAIR ALARM PLACED UNDER PT. REFUSES TO PUT GOWN ON, PREFERS HIS OWN CLOTHES. YELLOW BAND PLACED ON PT. NO OTHER NEEDS OR COMPLAINTS AT THIS TIME. CL IN REACH
[2018-10-09] VITALS: BP 107/68
[2018-10-09 04:00] VITALS: BP 154/73
[2018-10-09 04:32] LABS: BASOPHILS 0.3 % (0-2); EOSINOPHILS 1.1 % (0-7); IMMATURE GRANULOCYTES 0.5 % (0-5); LYMPHOCYTES 13.2 % (15-50); MCHC 31.7 g/dL (31.0-37.0); MEAN PLATELET VOLUME 8.9 fL (7.4-10.4); MONOCYTES 14.9 % (2-11); PLATELET COUNT 598 10x3/uL (130-400); RDW 16.9 % (11.5-14.5); WBC 11.5 10x3/uL (4.8-10.8)
[2018-10-09 04:53] LABS: HEMATOCRIT 26.2 % (42.0-54.0); HEMOGLOBIN 8.3 g/dL (13.5-17.5); MCV 82.1 fL (80.0-100.0); RBC 3.19 10x6/uL (4.20-6.10)
[2018-10-09 04:55] LABS: ALBUMIN 2.5 g/dL (3.4-5.0); ALKALINE PHOSPHATASE 126 U/L (46-116); ALT (SGPT) 78 U/L (10-68); BILIRUBIN - TOTAL 0.64 mg/dL (0.2-1.3); CALC OSMOLALITY 262 mosm/kg (275-300); CALCIUM 7.8 mg/dL (8.5-10.1); CARBON DIOXIDE 21.4 mmol/L (21.0-32.0); CHLORIDE - SERUM 101 mmol/L (98-107); CREATININE - SERUM 0.8 mg/dL (0.6-1.3); GLUCOSE 98 mg/dL (74-106); POTASSIUM - SERUM 3.9 mmol/L (3.5-5.1); PROTEIN - SERUM 7.2 g/dL (6.4-8.2); SODIUM 132 mmol/L (136-145); UREA NITROGEN 6 mg/dL (7-18); eGFR NON AFRICAN AMERICAN > 90 mL/min (90-120)
[2018-10-09 08:54] VITALS: BP 137/69
--- NOTE | 2018-10-09 10:09 | NUR ---
ALERT WITH INTERMITTANT CONFUSION. WOUND VAC INTACT TO RT. BKA. IVF AND CONTROL SYSTEMS SPECIALIST AT PRESCRIBED SETTINGS. REFUSED YELLOW GOWN WITH FALL RISK PRECAUTIONS IN PLACE.ENCOURAGED TO USE CALL LIGHT FOR ASSIST.
[2018-10-09 10:22] LABS: FOLATE (FOLIC ACID) - SERUM 13.9 ng/mL (>3.0)
[2018-10-09 12:53] VITALS: BP 139/74
[2018-10-09 13:08] VITALS: Ht 165.1 cm; Wt 61.2 kg
--- NOTE | 2018-10-09 15:14 | MORECARE ---
CASE MANAGEMENT DISCHARGE SUMMARY PATIENT: TONIA MCCARTNEY UNIT: [id number] ADM DATE: 10/08/18 AGE: 58 : 60 SEX: M ROOM/BED: D.2228 AUTHOR: JACI KELLY PHYSICIAN: REFERRING PHYSICIAN: GOOD MEEK MD DATE OF SERVICE: 10/09/18 Discharge Plan Patient Name: TONIA MCCATRNEY Facility: [facility]:[place] : 1960 Planned Disposition: Inpatient Rehab Anticipated Discharge Date: 10/12/18 Discharge Date: Expected LOS: 4 Initial Reviewer: [email or web address] Initial Review Date: 10/08/2018 Generated: 10/09/18 4:13 pm DCP- Discharge Planning Updated by [email or web address]: Jamila Fink on 10/08/18 10:[address] Patient Name: TONIA MCCARTNEY Admission Status: ER Accout number: [id number] Admission Date: 10-08-2018 : 1960 Admission Diagnosis: Attending: GOOD MEEK Current LOS: 1 Anticipated DC Date: 10-12-2018 Planned Disposition: Inpatient Rehab Primary Insurance: MEDICARE A & B Discharge Planning Comments: CM met with patient and his son Bib to complete initial dc planning assessment. CM educated patient and Bib on the CM role and verbal consent given by patient to complete assessment. Patient lives his son's house at this time. He was recently at [facility] but wanted to leave so Bib took him to his home. 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 [facility] his current home health agency. Bib reports that the patient is total care and he needs to return to rehab. WEI discussed and signed by Bib for NETWORK DEVELOPMENT COORDINATOR Inpatient Rehab and [facility]. The patient stated he didn't want to go back to [facility] but Bib told him he didn't have a choice. Bib and his both work and are not able to be with the patient all the time. Bib reports that his Mone Mccartney has power of csr retail. Signed form placed in patient's chart. Explained to Bib that once the patient is medically stable we will begin the process of getting him into rehab. CM will continue to follow and will assist as needed with dc plans/needs. Cutter First: Jamila Fink RN, [facility] DCPIA - Discharge Planning Initial Assessment Updated by [email or web address]: Jamila Fink on 10/08/18 11:10 am * Is the patient Alert and Oriented? Yes * How many steps to enter\exit or inside your home? * PCP Dr. Grant * Pharmacy [facility] [address] * Preadmission Environment Home with Family * ADLs Total Dependent * Equipment Rolling Walker Wheelchair * List name and contact numbers for known caregivers / representatives who currently or will assist patient after discharge: Mone Mccartney POA - dtr in law - [phone] [facility] - [phone] * Verbal permission to speak to the caregivers and representatives has been obtained from the patient. Yes * Community resources currently utilized Home Health * Please name any agencies selected above. [facility] * Additional services required to return to the preadmission environment? Yes * Can the patient safely return to the preadmission environment? No * Has this patient been hospitalized within the prior 30 days at any hospital? No Last DP export: 10/08/18 10:18 am Patient Name: BIBTONIA Page [id number] at 1514 All edits/amendments must be made on the electronic document DICTATION DATE: 10/09/181512 LITHOGRAPHIC PHOTOGRAPHER: ALVARADO 10/09/181512 RPT#: [id number] DC DATE: STATUS: ADM IN [facility] [address] [place] [address] END OF REPORT
[2018-10-09 17:19] VITALS: BP 152/66
[2018-10-09 19:00] VITALS: BP 158/85
--- NOTE | 2018-10-09 19:15 | NUR ---
RECEIVED REPORT, ASSUMED CARE, FAMILY AT BEDSIDE, CALL LIGHT IN REACH, DENIES NEEDS, BED LOWEST POSITION, WILL CONTINUE TO MONITOR
[2018-10-10] VITALS: BP 151/79
--- NOTE | 2018-10-10 02:15 | NUR ---
I have reviewed this patient and I concur with the Shift Assessment completed by the Licensed Practical Nurse today this shift.
[2018-10-10 03:00] VITALS: BP 158/66
[2018-10-10 07:17] LABS: BASOPHILS 0.2 % (0-2); EOSINOPHILS 3.9 % (0-7); HEMATOCRIT 24.8 % (42.0-54.0); HEMOGLOBIN 7.6 g/dL (13.5-17.5); IMMATURE GRANULOCYTES 0.7 % (0-5); LYMPHOCYTES 19.1 % (15-50); MCH 25.7 pg (26.0-34.0); MCHC 30.6 g/dL (31.0-37.0); MCV 83.8 fL (80.0-100.0); MEAN PLATELET VOLUME 9.3 fL (7.4-10.4); MONOCYTES 15.6 % (2-11); NEUTROPHILS 60.5 % (40-80); PLATELET COUNT 572 10x3/uL (130-400); RBC 2.96 10x6/uL (4.20-6.10); RDW 17.5 % (11.5-14.5); WBC 9.2 10x3/uL (4.8-10.8)
[2018-10-10 07:32] LABS: ALBUMIN 2.5 g/dL (3.4-5.0); ALKALINE PHOSPHATASE 124 U/L (46-116); ALT (SGPT) 65 U/L (10-68); BILIRUBIN - TOTAL 0.29 mg/dL (0.2-1.3); CALC OSMOLALITY 255 mosm/kg (275-300); CALCIUM 7.6 mg/dL (8.5-10.1); CARBON DIOXIDE 19.9 mmol/L (21.0-32.0); CHLORIDE - SERUM 98 mmol/L (98-107); CREATININE - SERUM 0.7 mg/dL (0.6-1.3); GLUCOSE 91 mg/dL (74-106); POTASSIUM - SERUM 4.2 mmol/L (3.5-5.1); PROTEIN - SERUM 6.8 g/dL (6.4-8.2); SODIUM 129 mmol/L (136-145); UREA NITROGEN 5 mg/dL (7-18); eGFR NON AFRICAN AMERICAN > 90 mL/min (90-120)
[2018-10-10 09:37] VITALS: BP 153/82
--- NOTE | 2018-10-10 09:50 | NUR ---
Rehab Note- Acute Inpatient Rehab prescreen was ordered through ER, the patient was admited to the acute hospital and continues to have an acute work up with continued anemia after blood transfusion. Will continue to follow at this time. Thank you for this referral! Felecia Boyd RN Clinical Liaison, [facility] Rehab
--- NOTE | 2018-10-10 10:23 | NUR ---
ALERT AND ORIENTED WITH OCCASIONAL FORGETFULNESS. WOUND VAC INTACT TO RT. BKA AND PATENT. IVF AND TRUCK DOCK MATERIAL MOVER AT PRECRIBED RATE. ENCOURAGED TO USE CALL LIGHT FOR ASSIST WITH FALL PRECAUTIONS IN PLACE.
[2018-10-10 13:29] VITALS: BP 141/78
[2018-10-10 16:21] VITALS: BP 159/78
[2018-10-10 20:00] VITALS: BP 149/67
[2018-10-11] VITALS: BP 169/76
[2018-10-11 04:00] VITALS: BP 140/78
[2018-10-11 06:02] LABS: ALBUMIN 2.3 g/dL (3.4-5.0); ALKALINE PHOSPHATASE 144 U/L (46-116); BILIRUBIN - TOTAL 0.21 mg/dL (0.2-1.3); CALC OSMOLALITY 261 mosm/kg (275-300); CALCIUM 7.7 mg/dL (8.5-10.1); CARBON DIOXIDE 21.1 mmol/L (21.0-32.0); CHLORIDE - SERUM 101 mmol/L (98-107); CREATININE - SERUM 0.7 mg/dL (0.6-1.3); GLUCOSE 80 mg/dL (74-106); PROTEIN - SERUM 6.9 g/dL (6.4-8.2); SODIUM 133 mmol/L (136-145); UREA NITROGEN 4 mg/dL (7-18); eGFR NON AFRICAN AMERICAN > 90 mL/min (90-120)
[2018-10-11 06:03] LABS: ALT (SGPT) 46 U/L (10-68)
[2018-10-11 06:13] LABS: BASOPHILS 0.6 % (0-2); EOSINOPHILS 7.6 % (0-7); HEMATOCRIT 24.4 % (42.0-54.0); HEMOGLOBIN 7.6 g/dL (13.5-17.5); IMMATURE GRANULOCYTES 0.6 % (0-5); LYMPHOCYTES 24.4 % (15-50); MCH 26.3 pg (26.0-34.0); MCHC 31.1 g/dL (31.0-37.0); MCV 84.4 fL (80.0-100.0); MEAN PLATELET VOLUME 9.6 fL (7.4-10.4); MONOCYTES 16.8 % (2-11); PLATELET COUNT 580 10x3/uL (130-400); RBC 2.89 10x6/uL (4.20-6.10); RDW 17.9 % (11.5-14.5); WBC 7.1 10x3/uL (4.8-10.8)
[2018-10-11 08:30] VITALS: BP 171/89
--- NOTE | 2018-10-11 10:35 | NUR ---
ALERT AND ORIENTED WITH INTERMITANT CONFUSION NOTED. IVF INFUSING AT PRESCRIBED RATE. WOUND VAC INTACT. ENCOURAGED TO USE CALL LIGHT FOR ASSIST AND VERBALIZED UNDERSTANDING
[2018-10-11 12:43] VITALS: BP 138/76
[2018-10-11 16:36] VITALS: BP 172/94
[2018-10-11 20:00] VITALS: BP 155/85
--- NOTE | 2018-10-11 20:34 | NUR ---
CALLED [facility] IN BLOOD BANK TO CHECK ON PRBC'S ORDERED EARLIER TODAY, STATED ONLY TYPE AND CROSS ORDERED, AFTER REVIEWING THE ORDERS 2 UNITS PRBC'S WERE ORDERED, BLOOD BANK STATED IT NEVER SHOWED THE ORDER ON THEIR SIDE
--- NOTE | 2018-10-11 20:37 | NUR ---
HAD TO REORDER 2 UNITS, PT'S TYPE AND CROSS THE COMPUTER KICKED OUT THE ORDER FOR THAT REASON, TYPE AND CROSS COMPLETED TODAY, WILL TRANSFUSE 2 UNITS WHEN AVAILABLE
--- NOTE | 2018-10-11 21:53 | NUR ---
FIRST UNIT PRBC'S STARTED, MIX UP IN LAB WITH BLOOD BAND NUMBER MATCHING THE UNIT AND PAPERWORK
--- NOTE | 2018-10-12 01:44 | NUR ---
I have reviewed this patient and I concur with the Shift Assessment completed by the Licensed Practical Nurse today this shift.
[2018-10-12 04:52] LABS: BASOPHILS 0.3 % (0-2); IMMATURE GRANULOCYTES 0.5 % (0-5); LYMPHOCYTES 19.3 % (15-50); MCH 27.2 pg (26.0-34.0); MCHC 31.8 g/dL (31.0-37.0); MCV 85.5 fL (80.0-100.0); MEAN PLATELET VOLUME 9.2 fL (7.4-10.4); MONOCYTES 17.1 % (2-11); NEUTROPHILS 58.8 % (40-80); PLATELET COUNT 493 10x3/uL (130-400); RDW 17.8 % (11.5-14.5); WBC 6.4 10x3/uL (4.8-10.8)
[2018-10-12 04:54] LABS: HEMATOCRIT 33.7 % (42.0-54.0); HEMOGLOBIN 10.7 g/dL (13.5-17.5); RBC 3.94 10x6/uL (4.20-6.10)
[2018-10-12 05:13] LABS: ALBUMIN 2.6 g/dL (3.4-5.0); ALKALINE PHOSPHATASE 132 U/L (46-116); ALT (SGPT) 41 U/L (10-68); BILIRUBIN - TOTAL 0.48 mg/dL (0.2-1.3); CALC OSMOLALITY 264 mosm/kg (275-300); CALCIUM 8.4 mg/dL (8.5-10.1); CARBON DIOXIDE 24.3 mmol/L (21.0-32.0); CHLORIDE - SERUM 99 mmol/L (98-107); CREATININE - SERUM 0.8 mg/dL (0.6-1.3); GLUCOSE 91 mg/dL (74-106); POTASSIUM - SERUM 4.8 mmol/L (3.5-5.1); PROTEIN - SERUM 7.4 g/dL (6.4-8.2); SODIUM 134 mmol/L (136-145); UREA NITROGEN 5 mg/dL (7-18); eGFR NON AFRICAN AMERICAN > 90 mL/min (90-120)
--- NOTE | 2018-10-12 06:39 | NUR ---
PT SOAKING WET THIS MORNING, ASSISTED PT OUT OF CLOTHES AND CHANGED PT INTO GOWN AFTER BATH ADMINISTERED PRN PAIN MEDICATION. CONTINUE WITH PLAN OF CARE
[2018-10-12 08:20] VITALS: BP 178/99
[2018-10-12 12:30] VITALS: BP 155/95
--- NOTE | 2018-10-12 15:42 | NUR ---
Rehab Note- Continues to have acute work up with EGD today per GI. Will continue to follow at this time. THank you for this referral! Felecia Boyd RN CLinical Liaison, [facility] Rehab
[2018-10-12 19:12] VITALS: BP 163/96
[2018-10-12 20:00] VITALS: BP 128/110
--- NOTE | 2018-10-12 20:00 | NUR ---
ALERT AND ORIENTIATED SITTING UP IN BED, WOUND VAC IN PLACE TO RIGH TSTUMP, NO APPARENT DISTRESS CALL LIGHT IN REACH
[2018-10-13 04:00] VITALS: BP 161/92
[2018-10-13 06:56] LABS: BASOPHILS 0.4 % (0-2); EOSINOPHILS 4.2 % (0-7); HEMATOCRIT 32.6 % (42.0-54.0); HEMOGLOBIN 10.4 g/dL (13.5-17.5); IMMATURE GRANULOCYTES 0.3 % (0-5); LYMPHOCYTES 19.6 % (15-50); MCH 26.9 pg (26.0-34.0); MCHC 31.9 g/dL (31.0-37.0); MCV 84.5 fL (80.0-100.0); MEAN PLATELET VOLUME 9.4 fL (7.4-10.4); MONOCYTES 19.6 % (2-11); NEUTROPHILS 55.9 % (40-80); PLATELET COUNT 510 10x3/uL (130-400); RBC 3.86 10x6/uL (4.20-6.10); RDW 18.2 % (11.5-14.5); WBC 7.1 10x3/uL (4.8-10.8)
[2018-10-13 07:15] LABS: ALBUMIN 2.5 g/dL (3.4-5.0); ALKALINE PHOSPHATASE 151 U/L (46-116); ALT (SGPT) 33 U/L (10-68); BILIRUBIN - TOTAL 0.43 mg/dL (0.2-1.3); CALC OSMOLALITY 253 mosm/kg (275-300); CALCIUM 8.4 mg/dL (8.5-10.1); CARBON DIOXIDE 23.2 mmol/L (21.0-32.0); CHLORIDE - SERUM 94 mmol/L (98-107); CREATININE - SERUM 0.7 mg/dL (0.6-1.3); GLUCOSE 99 mg/dL (74-106); POTASSIUM - SERUM 4.4 mmol/L (3.5-5.1); PROTEIN - SERUM 7.5 g/dL (6.4-8.2); SODIUM 128 mmol/L (136-145); UREA NITROGEN 5 mg/dL (7-18); eGFR NON AFRICAN AMERICAN > 90 mL/min (90-120)
--- NOTE | 2018-10-13 08:45 | NUR ---
PATIENT IV WITH RASH AROUND IN TAPE AREA. REMOVED PLASTIC TAPE AND APPLIED PAPER TAPE AND NEW OPSITE. REMOVED PLASTIC TAPE FROM RIGHT ARM WELL WHERE BLISTERS ARE STARTING TO FORM. EXPLAINED TO PATIENT TO ONLY LET THEM USE PAPER TAPE BECAUSE THE PLASTIC TAPE IS CAUSING BLISTERS. VERBALIZED UNDERSTANDING. CALL LIGHT WITHIN REACH.
[2018-10-13 09:06] VITALS: BP 139/83
[2018-10-13 15:12] VITALS: BP 124/79
--- NOTE | 2018-10-13 16:23 | NUR ---
Rehab Note- Continue to follow at this time. The patient hasn't been seen by PT since his initial Eval. Will continue to follow. Felecia Boyd RN Clinical Liaison, [facility] Rehab
[2018-10-13 17:36] VITALS: BP 142/83
--- NOTE | 2018-10-13 18:32 | NUR ---
PATIENT IN BED WITH IV INTACT. N O COMPLAINTS OR SIGNS OF DISTRESS. WOUND VAC IN PLACE. CALL LIGHT WITHIN REACH.
[2018-10-13 20:00] VITALS: BP 136/75
--- NOTE | 2018-10-14 02:12 | NUR ---
Alert sitting up in bed,LARGE BM NOTED IN BEDSIDE COMODE, WOUND VAC INPLACE TO RIGHT STUMP, CALL LIGHT IN REACH, SEE SHIFT ASSESSMENT
[2018-10-14 04:00] VITALS: BP 134/80
[2018-10-14 06:14] LABS: BASOPHILS 0.5 % (0-2); EOSINOPHILS 3.9 % (0-7); IMMATURE GRANULOCYTES 0.4 % (0-5); LYMPHOCYTES 16.9 % (15-50); MCH 27.1 pg (26.0-34.0); MCHC 32.3 g/dL (31.0-37.0); MEAN PLATELET VOLUME 9.7 fL (7.4-10.4); MONOCYTES 18.2 % (2-11); NEUTROPHILS 60.1 % (40-80); PLATELET COUNT 518 10x3/uL (130-400); RBC 3.69 10x6/uL (4.20-6.10); RDW 18.2 % (11.5-14.5)
[2018-10-14 06:22] LABS: ALBUMIN 2.4 g/dL (3.4-5.0); ALKALINE PHOSPHATASE 122 U/L (46-116); ALT (SGPT) 29 U/L (10-68); BILIRUBIN - TOTAL 0.55 mg/dL (0.2-1.3); CALC OSMOLALITY 254 mosm/kg (275-300); CALCIUM 8.5 mg/dL (8.5-10.1); CARBON DIOXIDE 23.1 mmol/L (21.0-32.0); CHLORIDE - SERUM 95 mmol/L (98-107); CREATININE - SERUM 0.6 mg/dL (0.6-1.3); GLUCOSE 96 mg/dL (74-106); POTASSIUM - SERUM 4.6 mmol/L (3.5-5.1); PROTEIN - SERUM 7.2 g/dL (6.4-8.2); SODIUM 128 mmol/L (136-145); UREA NITROGEN 6 mg/dL (7-18); eGFR NON AFRICAN AMERICAN > 90 mL/min (90-120)
[2018-10-14 06:29] LABS: WBC 9.2 10x3/uL (4.8-10.8)
--- NOTE | 2018-10-14 07:30 | NUR ---
MORNING ASSESSMENT COMPLETE. SEE ASSESSMENT FLOWHSHEET FOR FURTHER DETAILS. DENIES NEEDS AT THIS TIME. CL IN REACH. SIDE RAILS UP X3 FOR PATIENT SAEFTY.
[2018-10-14 09:43] VITALS: BP 161/91
[2018-10-14 12:35] VITALS: BP 154/77
--- NOTE | 2018-10-14 14:08 | NUR ---
NUTRITION F/U CHART REVIEWED, PT VISIT. TOLERATING REG DIET WITH 75 TO 100% INTAKE RECENT MEALS. NPO AFTER MN FOR AKA TOMORROW. WILL PROVIDE DIET WHEN RESUMED, HONOR FOOD PREFERENCES. MONITOR PO INTAKE. RD FOLLOWING
[2018-10-14 14:44] VITALS: BP 161/91
[2018-10-14 16:28] VITALS: BP 133/56
--- NOTE | 2018-10-14 20:00 | NUR ---
[id number] PER FLOWSHEET. WOUND VAC TO RT KNEE STUMP BKA SITE IV PATENT LEFT FOREARM OF NS AT 75CC'S/HR. FOUL ODOR NOTED IN PATIENT'S ROOM.
[2018-10-14 22:07] LABS: APPEARANCE CLEAR (CLEAR); BILIRUBIN NEGATIVE (NEGATIVE); COLOR YELLOW (YELLOW); GLUCOSE NEGATIVE (NEGATIVE); KETONE NEGATIVE (NEGATIVE); NITRITE NEGATIVE (NEGATIVE); PROTEIN NEGATIVE (NEGATIVE); UROBILINOGEN NORMAL (NORMAL)
[2018-10-14 22:36] VITALS: BP 129/56
--- NOTE | 2018-10-15 | NUR ---
NPO FOR AM SURGERY. SITTING UPRIGHT IN BED SLEEPING.
[2018-10-15 01:27] VITALS: BP 138/78
--- NOTE | 2018-10-15 04:26 | NUR ---
EYES CLOSED RESPIRATIONS WITH EASE AND UNLABORED.
[2018-10-15 04:47] VITALS: BP 140/73
--- NOTE | 2018-10-15 04:53 | NUR ---
C/O PAIN IN RT STUMP INCISION OXY 10MG PO GIVEN FOR PAIN CONTROL WITH SIP OF WATER.
--- NOTE | 2018-10-15 08:20 | NUR ---
The patient's left arm where his IV is located is red and has blisters all over, did have the charge nurse look at it, he did have paper tape on the site, unsure if he has an allergy to tape. Did d/c it and reinserted a 20 g in the right hand, stablized with papertape. The patient tolereated well.
[2018-10-15 09:12] LABS: BASOPHILS 0.4 % (0-2); EOSINOPHILS 4.7 % (0-7); HEMATOCRIT 31.1 % (42.0-54.0); HEMOGLOBIN 9.9 g/dL (13.5-17.5); IMMATURE GRANULOCYTES 0.3 % (0-5); LYMPHOCYTES 13.5 % (15-50); MCH 27.2 pg (26.0-34.0); MCHC 31.8 g/dL (31.0-37.0); MCV 85.4 fL (80.0-100.0); MEAN PLATELET VOLUME 9.6 fL (7.4-10.4); MONOCYTES 16.4 % (2-11); NEUTROPHILS 64.7 % (40-80); PLATELET COUNT 506 10x3/uL (130-400); RBC 3.64 10x6/uL (4.20-6.10); RDW 18.2 % (11.5-14.5); WBC 10.1 10x3/uL (4.8-10.8)
[2018-10-15 09:22] LABS: CALC OSMOLALITY 258 mosm/kg (275-300); CALCIUM 8.9 mg/dL (8.5-10.1); CARBON DIOXIDE 25.4 mmol/L (21.0-32.0); CHLORIDE - SERUM 96 mmol/L (98-107); CREATININE - SERUM 0.7 mg/dL (0.6-1.3); GLUCOSE 101 mg/dL (74-106); POTASSIUM - SERUM 4.1 mmol/L (3.5-5.1); SODIUM 130 mmol/L (136-145); UREA NITROGEN 6 mg/dL (7-18); eGFR NON AFRICAN AMERICAN > 90 mL/min (90-120)
--- NOTE | 2018-10-15 09:24 | NUR ---
Rehab Note- Continue to follow at this time. Has an AKA scheduled for today. Will conitnue to follow at this time. Felecia Boyd RN Clinical Liaison, [facility] Rehab
[2018-10-15 09:25] VITALS: BP 148/83
--- NOTE | 2018-10-15 09:30 | NUR ---
RECIEVED REPORT FROM TAWNY FRANCISCO RN. PT LYING IN BED AAO X4 TO PERSON, PLACE, TIME, AND SITUATION. DENIES NEEDS AT THIS TIME. GOING TO SURGERY TODAY.
--- NOTE | 2018-10-15 14:05 | NUR ---
1400 - CARE ASSUMED FROM Eliz JOHNSON RN REPORT RECEIVED.
--- NOTE | 2018-10-15 14:13 | NUR ---
LEFT WRIST AREA NOTED TO HAVE A WOUND OOZING FLUID FROM REDDENED AREA. AREA LOOSELY WRAPPED WITH DRY KERLIX TO PREVENT EXUDATE FROM BEING TRNSFERRED ELSEWHERE.
--- NOTE | 2018-10-15 14:20 | NUR ---
UNABLE TO CHART COMPLETE VS BEFORE 1400, AT TIME OF ASSUMPTION OF PT CARE.
[2018-10-15 14:57] VITALS: BP 141/78
[2018-10-15 16:28] VITALS: BP 145/80
[2018-10-15 20:00] VITALS: BP 141/76
[2018-10-16] VITALS: BP 161/86
[2018-10-16 04:00] VITALS: BP 160/81
[2018-10-16 04:36] LABS: BASOPHILS 0.3 % (0-2); EOSINOPHILS 0.4 % (0-7); HEMATOCRIT 29.4 % (42.0-54.0); HEMOGLOBIN 9.2 g/dL (13.5-17.5); IMMATURE GRANULOCYTES 0.4 % (0-5); LYMPHOCYTES 8.4 % (15-50); MCH 27.1 pg (26.0-34.0); MCHC 31.3 g/dL (31.0-37.0); MCV 86.5 fL (80.0-100.0); MEAN PLATELET VOLUME 10.1 fL (7.4-10.4); MONOCYTES 14.9 % (2-11); NEUTROPHILS 75.6 % (40-80); PLATELET COUNT 520 10x3/uL (130-400); RDW 18.5 % (11.5-14.5); WBC 11.6 10x3/uL (4.8-10.8)
[2018-10-16 04:52] LABS: CALC OSMOLALITY 259 mosm/kg (275-300); CALCIUM 8.2 mg/dL (8.5-10.1); CARBON DIOXIDE 23.6 mmol/L (21.0-32.0); CHLORIDE - SERUM 96 mmol/L (98-107); CREATININE - SERUM 0.7 mg/dL (0.6-1.3); GLUCOSE 115 mg/dL (74-106); POTASSIUM - SERUM 4.2 mmol/L (3.5-5.1); SODIUM 130 mmol/L (136-145); UREA NITROGEN 6 mg/dL (7-18); eGFR NON AFRICAN AMERICAN > 90 mL/min (90-120)
[2018-10-16 09:35] VITALS: BP 147/84
[2018-10-16 12:45] VITALS: BP 125/75; BP 141/77
--- NOTE | 2018-10-16 12:51 | NUR ---
NUTRITION F/U S/P R AKA. TOLERATING REG DIET WITH ~ 75% INTAKE RECENT MEALS. WILL CONTINUE TO PROVIDE DIET, HONOR FOOD PREFERENCES. RD FOLLOWING
[2018-10-16 18:19] VITALS: BP 126/68
--- NOTE | 2018-10-16 19:15 | NUR ---
RECEIVED CARE FROM DAY NURSE. SITTING UP IN BED. REPORTS NO NEEDS AT THIS TIME. CALL LIGHT AT SIDE. IV INFUSING PER ORDER TO RIGHT HAND.
[2018-10-16 20:00] VITALS: BP 164/94
[2018-10-17 02:00] VITALS: BP 115/62
--- NOTE | 2018-10-17 03:00 | NUR ---
I have reviewed this patient and I concur with the Shift Assessment completed by the Licensed Practical Nurse today this shift.
[2018-10-17 04:00] VITALS: BP 144/86
[2018-10-17 05:50] LABS: BASOPHILS 0.3 % (0-2); EOSINOPHILS 2.4 % (0-7); HEMATOCRIT 28.7 % (42.0-54.0); HEMOGLOBIN 8.8 g/dL (13.5-17.5); IMMATURE GRANULOCYTES 0.7 % (0-5); LYMPHOCYTES 16.6 % (15-50); MCH 26.8 pg (26.0-34.0); MCHC 30.7 g/dL (31.0-37.0); MCV 87.5 fL (80.0-100.0); MEAN PLATELET VOLUME 10.2 fL (7.4-10.4); MONOCYTES 19.5 % (2-11); NEUTROPHILS 60.5 % (40-80); PLATELET COUNT 506 10x3/uL (130-400); RBC 3.28 10x6/uL (4.20-6.10); RDW 18.5 % (11.5-14.5); WBC 8.8 10x3/uL (4.8-10.8)
[2018-10-17 06:10] LABS: CALC OSMOLALITY 260 mosm/kg (275-300); CALCIUM 8.5 mg/dL (8.5-10.1); CARBON DIOXIDE 23.8 mmol/L (21.0-32.0); CHLORIDE - SERUM 97 mmol/L (98-107); CREATININE - SERUM 0.7 mg/dL (0.6-1.3); GLUCOSE 98 mg/dL (74-106); SODIUM 131 mmol/L (136-145); UREA NITROGEN 6 mg/dL (7-18); eGFR NON AFRICAN AMERICAN > 90 mL/min (90-120)
--- NOTE | 2018-10-17 08:19 | NUR ---
PT AAOX4 RESP EVEN AND NONLABORED, NO SIGNS OF DISTRESS NOTED, PT WANTING SOMETHING TO DRINK BROUGHT TO PT AT THIS TIME, NO OTHER NEEDS EXPRESSED AT THIS TIME, CL IN REACH WILL CONTINUE TO MONITOR
[2018-10-17 09:15] VITALS: BP 116/56
[2018-10-17 14:30] VITALS: BP 139/79
[2018-10-17 16:00] VITALS: BP 126/65
--- NOTE | 2018-10-17 18:04 | NUR ---
I have reviewed this patient and I concur with the Shift Assessment completed by the Licensed Practical Nurse today this shift.
--- NOTE | 2018-10-17 20:00 | NUR ---
ALERT SITTING UP IN BED WOUND VAC IN USE TO RIGHT STUMP, IV INFUSING WITHOUT DIFFICULTY,STATES JUST NOT FEELING WELL TODAY, REQUESTING PAIN MEDS SOON ITS TIME. CALL LIGHT IN REACH
[2018-10-18 00:19] VITALS: BP 130/70
[2018-10-18 04:32] VITALS: BP 147/93
[2018-10-18 05:44] LABS: BASOPHILS 0.9 % (0-2); EOSINOPHILS 4.2 % (0-7); HEMATOCRIT 27.9 % (42.0-54.0); HEMOGLOBIN 8.7 g/dL (13.5-17.5); IMMATURE GRANULOCYTES 0.3 % (0-5); LYMPHOCYTES 20.4 % (15-50); MCH 26.8 pg (26.0-34.0); MCHC 31.2 g/dL (31.0-37.0); MCV 85.8 fL (80.0-100.0); MEAN PLATELET VOLUME 10.1 fL (7.4-10.4); MONOCYTES 22.3 % (2-11); NEUTROPHILS 51.9 % (40-80); PLATELET COUNT 523 10x3/uL (130-400); RBC 3.25 10x6/uL (4.20-6.10); RDW 18.3 % (11.5-14.5); WBC 8.7 10x3/uL (4.8-10.8)
[2018-10-18 05:52] LABS: CALC OSMOLALITY 258 mosm/kg (275-300); CALCIUM 8.2 mg/dL (8.5-10.1); CHLORIDE - SERUM 98 mmol/L (98-107); CREATININE - SERUM 0.7 mg/dL (0.6-1.3); GLUCOSE 91 mg/dL (74-106); POTASSIUM - SERUM 4.2 mmol/L (3.5-5.1); SODIUM 130 mmol/L (136-145); UREA NITROGEN 6 mg/dL (7-18); eGFR NON AFRICAN AMERICAN > 90 mL/min (90-120)
[2018-10-18 10:02] VITALS: BP 147/88
[2018-10-18 13:10] VITALS: BP 132/80
[2018-10-18 16:31] VITALS: BP 138/78
[2018-10-18 20:00] VITALS: BP 118/62
--- NOTE | 2018-10-18 20:00 | NUR ---
ALERT RESTING IN BED SISTER AT BEDSIDE, NO APPARENT DISTRESS, CALL LIGHT IN REACH, WOUND VAC TO RIGHT STUMP
[2018-10-19 04:00] VITALS: BP 142/71
[2018-10-19 06:58] LABS: EOSINOPHILS 5.2 % (0-7); HEMATOCRIT 26.4 % (42.0-54.0); HEMOGLOBIN 8.2 g/dL (13.5-17.5); IMMATURE GRANULOCYTES 0.5 % (0-5); LYMPHOCYTES 18.7 % (15-50); MCH 26.5 pg (26.0-34.0); MCHC 31.1 g/dL (31.0-37.0); MCV 85.2 fL (80.0-100.0); MEAN PLATELET VOLUME 10.4 fL (7.4-10.4); MONOCYTES 23.7 % (2-11); NEUTROPHILS 50.9 % (40-80); PLATELET COUNT 569 10x3/uL (130-400); RDW 18.1 % (11.5-14.5); WBC 8.3 10x3/uL (4.8-10.8)
[2018-10-19 07:44] LABS: CALC OSMOLALITY 253 mosm/kg (275-300); CALCIUM 8.1 mg/dL (8.5-10.1); CARBON DIOXIDE 22.3 mmol/L (21.0-32.0); CHLORIDE - SERUM 95 mmol/L (98-107); CREATININE - SERUM 0.7 mg/dL (0.6-1.3); GLUCOSE 95 mg/dL (74-106); POTASSIUM - SERUM 4.1 mmol/L (3.5-5.1); SODIUM 128 mmol/L (136-145); UREA NITROGEN 5 mg/dL (7-18); eGFR NON AFRICAN AMERICAN > 90 mL/min (90-120)
--- NOTE | 2018-10-19 07:55 | NUR ---
PT RESTING IN BED WITH FAMILY AT BEDSIDE. NO ACUTE DISTRESS NOTED. IV TO LEFT FOREARM SALINE LOC INTACT. DRESSING TO RIGHT LOWER EXTREMITY WITH PREVENA WOUND VAC INTACT. DENIES FURTHER NEEDS AT THIS TIME. CL WITHIN REACH. ENCOURAGED TO CALL WITH NEEDS. CONTINUE POC
[2018-10-19 09:31] VITALS: BP 137/72
--- NOTE | 2018-10-19 10:35 | NUR ---
Rehab Note- COntinue to follow at this time. THe patient has not been seen by PT since Eval. Spoke with TESSA Rodriguez about PT. Will contine to follow at this time. Thank you for this referral! Radha Boyd RN CLinical Liaison, [facility] Rehab
[2018-10-19 13:00] VITALS: BP 112/58
[2018-10-19 18:57] VITALS: BP 122/61
[2018-10-19 20:00] VITALS: BP 132/68
[2018-10-20 04:00] VITALS: BP 124/68
[2018-10-20 05:41] LABS: BASOPHILS 0.9 % (0-2); EOSINOPHILS 7.4 % (0-7); HEMATOCRIT 27.1 % (42.0-54.0); HEMOGLOBIN 8.4 g/dL (13.5-17.5); IMMATURE GRANULOCYTES 0.7 % (0-5); LYMPHOCYTES 22.8 % (15-50); MCH 26.7 pg (26.0-34.0); MEAN PLATELET VOLUME 10.3 fL (7.4-10.4); MONOCYTES 24.1 % (2-11); NEUTROPHILS 44.1 % (40-80); PLATELET COUNT 606 10x3/uL (130-400); RBC 3.15 10x6/uL (4.20-6.10); RDW 18.1 % (11.5-14.5); WBC 6.7 10x3/uL (4.8-10.8)
[2018-10-20 06:00] LABS: ALBUMIN 2.2 g/dL (3.4-5.0); ALKALINE PHOSPHATASE 181 U/L (46-116); ALT (SGPT) 73 U/L (10-68); CALC OSMOLALITY 256 mosm/kg (275-300); CALCIUM 8.3 mg/dL (8.5-10.1); CARBON DIOXIDE 23.8 mmol/L (21.0-32.0); CHLORIDE - SERUM 96 mmol/L (98-107); CREATININE - SERUM 0.7 mg/dL (0.6-1.3); GLUCOSE 102 mg/dL (74-106); POTASSIUM - SERUM 4.1 mmol/L (3.5-5.1); PROTEIN - SERUM 7.4 g/dL (6.4-8.2); SODIUM 129 mmol/L (136-145); eGFR NON AFRICAN AMERICAN > 90 mL/min (90-120)
[2018-10-20 06:22] LABS: UREA NITROGEN 8 mg/dL (7-18)
[2018-10-20 09:36] VITALS: BP 136/63
[2018-10-20 14:16] VITALS: BP 134/72
[2018-10-20 18:04] VITALS: BP 131/67
[2018-10-20 20:00] VITALS: BP 128/71
[2018-10-21] VITALS: BP 138/74
[2018-10-21 04:00] VITALS: BP 126/70
[2018-10-21 07:11] LABS: HEMOGLOBIN 8.6 g/dL (13.5-17.5); MCH 26.5 pg (26.0-34.0); MCHC 30.7 g/dL (31.0-37.0); MCV 86.2 fL (80.0-100.0); MEAN PLATELET VOLUME 10.1 fL (7.4-10.4); PLATELET COUNT 686 10x3/uL (130-400); RBC 3.25 10x6/uL (4.20-6.10); WBC 7.2 10x3/uL (4.8-10.8)
[2018-10-21 07:33] LABS: ALBUMIN 2.2 g/dL (3.4-5.0); ALKALINE PHOSPHATASE 197 U/L (46-116); ALT (SGPT) 74 U/L (10-68); BILIRUBIN - TOTAL 0.27 mg/dL (0.2-1.3); CALC OSMOLALITY 256 mosm/kg (275-300); CALCIUM 8.5 mg/dL (8.5-10.1); CARBON DIOXIDE 22.4 mmol/L (21.0-32.0); CHLORIDE - SERUM 95 mmol/L (98-107); CREATININE - SERUM 0.7 mg/dL (0.6-1.3); GLUCOSE 109 mg/dL (74-106); POTASSIUM - SERUM 3.6 mmol/L (3.5-5.1); PROTEIN - SERUM 7.8 g/dL (6.4-8.2); SODIUM 129 mmol/L (136-145); eGFR NON AFRICAN AMERICAN > 90 mL/min (90-120)
[2018-10-21 07:35] LABS: BASOPHILS 1 % (0-2); EOSINOPHILS 12 % (0-7); LYMPHOCYTES 25 % (15-50); MONOCYTES 16 % (2-11); NEUTROPHILS 41 % (40-80)
[2018-10-21 07:36] LABS: PLATELET ESTIMATE INCREASED
[2018-10-21 07:49] LABS: UREA NITROGEN 5 mg/dL (7-18)
[2018-10-21 08:55] VITALS: BP 123/66
[2018-10-21] MEDS ORDERED: XOPENEX 1.1.25 MG/3 UPD (10:56)
[2018-10-21] MEDS ORDERED: Nicoderm [PBKC] TRANSDERM (10:56)
[2018-10-21] MEDS ORDERED: MIRALAX17 GM PO (10:57)
[2018-10-21] MEDS ORDERED: Narcan INJ IV (10:57)
[2018-10-21] MEDS ORDERED: VISTARIL50 MG PO (10:57)
[2018-10-21] MEDS ORDERED: CARAFATE1 G PO (10:57)
[2018-10-21] MEDS ORDERED: ACETAMINOPHEN500 M1 PO (10:58)
--- NOTE | 2018-10-21 11:41 | MORECARE ---
CASE MANAGEMENT DISCHARGE SUMMARY PATIENT: TONIA MCCARTNEY UNIT: [id number] ADM DATE: 10/08/18 AGE: 58 : 60 SEX: M ROOM/BED: D.2228 AUTHOR: JACI KELLY PHYSICIAN: REFERRING PHYSICIAN: GOOD MEEK MD DATE OF SERVICE: 10/21/18 Discharge Plan Patient Name: TONIA MCCARTNEY Facility: [facility]:[place] : 1960 Planned Disposition: Inpatient Rehab Anticipated Discharge Date: 10/12/18 Discharge Date: Expected LOS: 4 Initial Reviewer: [email or web address] Initial Review Date: 10/08/2018 Generated: 10/21/18 12:41 pm Comments DCP- Discharge Planning Updated by [email or web address]: Jennifer Bagley on 10/21/18 10:[address] Received order for discharge to inpatient rehab. I met with the patient and he seemed confused about IMM and did not want to sign discharge IMM. I called his son, Kevin, and informed of discharge to inpatient rehab and discharge IMM. His on agrees with discharge to inpatient rehab. I spoke with Felecia and they will accept patient today. DCP- Discharge Planning Updated by [email or web address]: Jamila Aleks on 10/08/18 9:[address] Patient Name: TONIA MCCARTNEY Admission Status: ER Accout number: [id number] Admission Date: 10-08-2018 : 1960 Admission Diagnosis: Attending: GOOD MEEK Current LOS: 1 Anticipated DC Date: 10-12-2018 Planned Disposition: Inpatient Rehab Primary Insurance: MEDICARE A & B Discharge Planning Comments: CM met with patient and his son Brenenn to complete initial dc planning assessment. CM educated patient and Brennen on the CM role and verbal consent given by patient to complete assessment. Patient lives his son's house at this time. He was recently at [facility] but wanted to leave so Brennen took him to his home. 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 [facility] is his current home health agency. Brennen reports that the patient is total care and he needs to return to rehab. WEI discussed and signed by Brennen for IMAGING NURSE Inpatient Rehab and [facility] [facility]. The patient stated he didn't want to go back to [place] but Brennen told him he didn't have a choice. Brennen and his both work and are not able to be with the patient all the time. Brennen reports that his Mone Mccartney has power of regulatory attorney. Signed form placed in patient's chart. Explained to Brennen that once the patient is medically stable we will begin the process of getting him into rehab. CM will continue to follow and will assist as needed with dc plans/needs. Copier Field Service Technician: Jamila Fink RN, [facility] DCPIA - Discharge Planning Initial Assessment Updated by [email or web address]: Jamila Fink on 10/08/18 11:10 am * Is the patient Alert and Oriented? Yes * How many steps to enter\exit or inside your home? * PCP Dr. Grant * Pharmacy [facility] on [address] * Preadmission Environment Home with Family * ADLs Total Dependent * Equipment Rolling Walker Wheelchair * List name and contact numbers for known caregivers / representatives who currently or will assist patient after discharge: Mone Mccartney POA - dtr in law - [phone] Kevin Mccartney - Son - [phone] * Verbal permission to speak to the caregivers and representatives has been obtained from the patient. Yes * Community resources currently utilized Home Health * Please name any agencies selected above. [facility] * Additional services required to return to the preadmission environment? Yes * Can the patient safely return to the preadmission environment? No * Has this patient been hospitalized within the prior 30 days at any hospital? No Coverage Notice Reviewer: [id number] Natasha Bagley Notice Issued Date-Time: 10/21/2018 11:40 Notice Type: IM Discharge Notice Notice Delivered To: Family Member Relationship to Patient: Son Hoop Expander Name: Kevin Mccartney Delivery Method: - Margi Days: Prior Verbal Notification: Recipient Understood Notice: Recipient Signature: Med Rec Note Co-signed by Attending: Coverage Notice Comment: Last DP export: 10/09/18 1:14 pm Patient Name: TONIA MCCARTNEY Page [phone] at 1141 All edits/amendments must be made on the electronic document DICTATION DATE: 10/21/18 1140 DIRECTOR CHILD: ALVARADO 10/21/18 1140 RPT#: [id number] DC DATE: STATUS: ADM IN [facility] [address] [place] [address] END OF REPORT
--- NOTE | 2018-10-21 13:29 | NUR ---
I have reviewed this patient and I concur with the Shift Assessment completed by the Licensed Practical Nurse today this shift.
[2018-10-21 13:38] VITALS: BP 102/72
--- NOTE | 2018-10-21 14:06 | NUR ---
PT RESTING IN BED. LIGHTS ON EYE OPEN. REFUSED YELLOW GOWN. WEARING SCRUBS. PT SET TO D/C DOWNSTAIRS TO REHAB TODAY. PAIN WELL CONTROLLED AT THIS TIME. A/O X4. CALL LIGHT AND BEDSIDE TABLE IN REACH. BED IN LOWEST POSITION. NO COMPLAINTS VOICED AT THIS TIME. WILL CONTINUE TO MONITOR.
[2018-10-21] MEDS ORDERED: ZOFRAN4 MG PO (14:28)
--- NOTE | 2018-10-21 15:44 | MORECARE ---
CASE MANAGEMENT DISCHARGE SUMMARY PATIENT: TONIA MCCARTNEY UNIT: [id number] ADM DATE: 10/08/18 AGE: 58 : 60 SEX: M ROOM/BED: D.2228 AUTHOR: JACI KELLY PHYSICIAN: REFERRING PHYSICIAN: GOOD MEEK MD DATE OF SERVICE: 10/21/18 Discharge Plan Patient Name: TONIA MCCARTNEY Facility: [facility]:[place] : 1960 Planned Disposition: Inpatient Rehab Anticipated Discharge Date: 10/12/18 Discharge Date: 10/21/2018 Expected LOS: 4 Initial Reviewer: [email or web address] Initial Review Date: 10/08/2018 Generated: 10/21/18 4:44 pm Comments DCP- Discharge Planning Updated by [email or web address]: Jennifer Bagley on 10/21/18 10:[address] Received order for discharge to inpatient rehab. I met with the patient and he seemed confused about IMM and did not want to sign discharge IMM. I called his son, Kevin, and informed of discharge to inpatient rehab and discharge IMM. His on agrees with discharge to inpatient rehab. I spoke with Felecia and they will accept patient today. DCP- Discharge Planning Updated by [email or web address]: Jamila Fink on 10/08/18 9:[address] Patient Name: TONIA MCCARTNEY Admission Status: ER Accout number: [id number] Admission Date: 10-08-2018 : 1960 Admission Diagnosis: Attending: GOOD MEEK Current LOS: 1 Anticipated DC Date: 10-12-2018 Planned Disposition: Inpatient Rehab Primary Insurance: MEDICARE A & B Discharge Planning Comments: CM met with patient and his son Brennen to complete initial dc planning assessment. CM educated patient and Brennen on the CM role and verbal consent given by patient to complete assessment. Patient lives his son's house at this time. He was recently at [facility] but wanted to leave so Brennen took him to his home. 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 [facility] is his current home health agency. Brennen reports that the patient is total care and he needs to return to rehab. WEI discussed and signed by Brennen for LEAD EMBEDDED SOFTWARE ENGINEER Inpatient Rehab and [facility]. The patient stated he didn't want to go back to [place] but Brennen told him he didn't have a choice. Brennen and his both work and are not able to be with the patient all the time. Brennen reports that his Mone Mccartney has power of assistant city attorney. Signed form placed in patient's chart. Explained to Brennen that once the patient is medically stable we will begin the process of getting him into rehab. CM will continue to follow and will assist as needed with dc plans/needs. Dumper Bulk System: Jamila Fink RN, [facility] DCPIA - Discharge Planning Initial Assessment Updated by [email or web address]: Jamila Fink on 10/08/18 11:10 am * Is the patient Alert and Oriented? Yes * How many steps to enter\exit or inside your home? * PCP Dr. Grant * [facility]acy [facility] [address] * Preadmission Environment Home with Family * ADLs Total Dependent * Equipment Rolling Walker Wheelchair * List name and contact numbers for known caregivers / representatives who currently or will assist patient after discharge: Mone Mccartney POA - dtr in law - [phone] Kevin Cortezn - Son - [phone] * Verbal permission to speak to the caregivers and representatives has been obtained from the patient. Yes * Community resources currently utilized Home Health * Please name any agencies selected above. [facility] * Additional services required to return to the preadmission environment? Yes * Can the patient safely return to the preadmission environment? No * Has this patient been hospitalized within the prior 30 days at any hospital? No Coverage Notice Reviewer: [id number] Natasha Bagley Notice Issued Date-Time: 10/21/2018 11:40 Notice Type: IM Discharge Notice Notice Delivered To: Family Member Relationship to Patient: Son Traveling Sales Executive Name: Kevin Cortezn Delivery Method: PHONE - Phone Margi Days: Prior Verbal Notification: Recipient Understood Notice: Yes Recipient Signature: Med Rec Note Co-signed by Attending: Coverage Notice Comment: IMM explained, left IMM with patient, placed on chart after speaking with son. Last DP export: 10/21/18 10:41 a Patient Name: TONIA MCCARTNEY Page [phone] at 1544 All edits/amendments must be made on the electronic document DICTATION DATE: 10/21/18 1544 MONEY ORDER CLERK: ALVARADO 10/21/18 1544 RPT#: [id number] DC DATE:10/21/18 STATUS: DIS IN [facility] [address] [place] [address] END OF REPORT
== END 2018-10-21 15:09 | DRG 239 ==
LOC: D.ER 08:23 → D.MS 10:52 → D.EDHOLD 10:52 → D.MS 13:06
PROVIDERS: Emergency Medicine; Family Medicine; Internal Medicine Nephrology; Orthopaedic Surgery; ADMIT Emergency Medicine; ATTEND Emergency Medicine
PROC: 0W3P8ZZ Control Bleeding in Gastrointestinal Tract, Via Natural or Artificial Opening Endoscopic (ICD-10-PCS; 2018-10-12)
PROC: 0Y6C0Z3 Detachment at Right Upper Leg, Low, Open Approach (ICD-10-PCS; principal; 2018-10-15 09:30)
DX: I70.239 Atherosclerosis of native arteries of right leg with ulceration of unspecified site (principal); E43 Unspecified severe protein-calorie malnutrition; K55.21 Angiodysplasia of colon with hemorrhage; D62 Acute posthemorrhagic anemia; E87.1 Hypo-osmolality and hyponatremia; F17.213 Nicotine dependence, cigarettes, with withdrawal; I73.9 Peripheral vascular disease, unspecified; T87.89 Other complications of amputation stump; E86.0 Dehydration; E87.6 Hypokalemia; I10 Essential (primary) hypertension; Z68.22 Body mass index [BMI] 22.0-22.9, adult; F10.20 Alcohol dependence, uncomplicated

== ENCOUNTER 2018-10-21 14:37 | Inpatient (IN) | payer MEDICARE ==
[~2018-10-21] VITALS: Ht 165.1 cm; Wt 61.2 kg
[~2018-10-21 14:37] MED LIST changes: +ACETAMINOPHEN500 M1 PO; +Narcan INJ IV; +VISTARIL50 MG PO; +XOPENEX 1.1.25 MG/3 UPD; +ZOFRAN4 MG PO
[2018-10-21 19:00] VITALS: BP 130/93
[2018-10-21 19:48] VITALS: BP 130/93; BMI 22.5
[2018-10-21 19:53] LABS: CALCIUM 8.6 mg/dL (8.5-10.1); CARBON DIOXIDE 23.2 mmol/L (21.0-32.0); CHLORIDE - SERUM 96 mmol/L (98-107); CREATININE - SERUM 0.6 mg/dL (0.6-1.3); GLUCOSE 108 mg/dL (74-106); SODIUM 131 mmol/L (136-145); eGFR NON AFRICAN AMERICAN > 90 mL/min (90-120)
[2018-10-21 19:55] LABS: CALC OSMOLALITY 261 mosm/kg (275-300); POTASSIUM - SERUM 4.5 mmol/L (3.5-5.1); UREA NITROGEN 7 mg/dL (7-18)
[2018-10-22 07:46] LABS: EOSINOPHILS 7.7 % (0-7); HEMATOCRIT 28.6 % (42.0-54.0); HEMOGLOBIN 8.8 g/dL (13.5-17.5); IMMATURE GRANULOCYTES 0.4 % (0-5); LYMPHOCYTES 20.1 % (15-50); MCH 26.3 pg (26.0-34.0); MCHC 30.8 g/dL (31.0-37.0); MCV 85.4 fL (80.0-100.0); MEAN PLATELET VOLUME 9.8 fL (7.4-10.4); MONOCYTES 19.4 % (2-11); NEUTROPHILS 51.4 % (40-80); PLATELET COUNT 716 10x3/uL (130-400); RBC 3.35 10x6/uL (4.20-6.10); WBC 7.2 10x3/uL (4.8-10.8)
[2018-10-22 07:52] LABS: CALC OSMOLALITY 262 mosm/kg (275-300); CALCIUM 8.8 mg/dL (8.5-10.1); CARBON DIOXIDE 24.2 mmol/L (21.0-32.0); CHLORIDE - SERUM 98 mmol/L (98-107); CREATININE - SERUM 0.7 mg/dL (0.6-1.3); GLUCOSE 94 mg/dL (74-106); POTASSIUM - SERUM 4.2 mmol/L (3.5-5.1); SODIUM 133 mmol/L (136-145); eGFR NON AFRICAN AMERICAN > 90 mL/min (90-120)
[2018-10-22 07:53] LABS: UREA NITROGEN 5 mg/dL (7-18)
[2018-10-22 07:58] VITALS: BP 150/77
[2018-10-22 13:32] VITALS: Ht 165.1 cm; Wt 61.2 kg
[2018-10-22 19:00] VITALS: BP 164/77
[2018-10-23 07:10] LABS: BASOPHILS 1.4 % (0-2); EOSINOPHILS 10.6 % (0-7); HEMATOCRIT 28.5 % (42.0-54.0); HEMOGLOBIN 8.9 g/dL (13.5-17.5); IMMATURE GRANULOCYTES 0.4 % (0-5); LYMPHOCYTES 24.6 % (15-50); MCH 26.7 pg (26.0-34.0); MCHC 31.2 g/dL (31.0-37.0); MCV 85.6 fL (80.0-100.0); MEAN PLATELET VOLUME 9.9 fL (7.4-10.4); MONOCYTES 15.6 % (2-11); NEUTROPHILS 47.4 % (40-80); PLATELET COUNT 802 10x3/uL (130-400); RBC 3.33 10x6/uL (4.20-6.10); WBC 7.4 10x3/uL (4.8-10.8)
[2018-10-23 08:00] VITALS: BP 137/71
[2018-10-23 19:00] VITALS: BP 129/87; BP 159/77
[2018-10-24 07:30] VITALS: BP 123/78
[2018-10-24 20:15] VITALS: BP 118/74
[2018-10-25 08:00] VITALS: BP 143/79
[2018-10-25 20:08] VITALS: BP 132/77
[2018-10-26 07:12] LABS: BASOPHILS 1.2 % (0-2); EOSINOPHILS 7.8 % (0-7); HEMOGLOBIN 8.9 g/dL (13.5-17.5); IMMATURE GRANULOCYTES 1.2 % (0-5); LYMPHOCYTES 22.8 % (15-50); MCH 26.6 pg (26.0-34.0); MCHC 30.7 g/dL (31.0-37.0); MCV 86.8 fL (80.0-100.0); MEAN PLATELET VOLUME 9.2 fL (7.4-10.4); MONOCYTES 17.9 % (2-11); NEUTROPHILS 49.1 % (40-80); PLATELET COUNT 886 10x3/uL (130-400); RBC 3.34 10x6/uL (4.20-6.10); RDW 18.3 % (11.5-14.5); WBC 9.2 10x3/uL (4.8-10.8)
[2018-10-26 07:19] LABS: CALC OSMOLALITY 267 mosm/kg (275-300); CALCIUM 8.9 mg/dL (8.5-10.1); CARBON DIOXIDE 24.3 mmol/L (21.0-32.0); CHLORIDE - SERUM 100 mmol/L (98-107); CREATININE - SERUM 0.6 mg/dL (0.6-1.3); GLUCOSE 96 mg/dL (74-106); POTASSIUM - SERUM 4.1 mmol/L (3.5-5.1); SODIUM 135 mmol/L (136-145); UREA NITROGEN 8 mg/dL (7-18); eGFR NON AFRICAN AMERICAN > 90 mL/min (90-120)
[2018-10-26 08:17] VITALS: BP 148/84
[2018-10-26 19:00] VITALS: BP 198/85
[2018-10-27 08:00] VITALS: BP 156/72
[2018-10-27 19:00] VITALS: BP 140/78
[2018-10-28 08:00] VITALS: BP 188/71
[2018-10-28 19:00] VITALS: BP 153/70
[2018-10-29 08:00] VITALS: BP 149/78
[2018-10-29] MEDS ORDERED: oxyCODONE IR PO (08:25)
== END 2018-10-29 12:32 | disposition home health service (06) | DRG 559 ==
LOC: D.REHAB 14:37
PROVIDERS: Family Medicine; ADMIT Emergency Medicine; ATTEND Emergency Medicine
DX: Z47.81 Encounter for orthopedic aftercare following surgical amputation (principal); E43 Unspecified severe protein-calorie malnutrition; D62 Acute posthemorrhagic anemia; E87.1 Hypo-osmolality and hyponatremia; F17.203 Nicotine dependence unspecified, with withdrawal; Z89.511 Acquired absence of right leg below knee; T81.89XD Other complications of procedures, not elsewhere classified, subsequent encounter; E86.0 Dehydration; E87.6 Hypokalemia; Z68.22 Body mass index [BMI] 22.0-22.9, adult; K21.0 Gastro-esophageal reflux disease with esophagitis; K29.70 Gastritis, unspecified, without bleeding; R53.83 Other fatigue; R53.81 Other malaise; F10.20 Alcohol dependence, uncomplicated; I73.9 Peripheral vascular disease, unspecified; I10 Essential (primary) hypertension; R53.1 Weakness; D50.9 Iron deficiency anemia, unspecified

== ENCOUNTER 2018-12-18 22:02 | Emergency (ER) | payer MEDICARE ==
[~2018-12-18] VITALS: Ht 165.1 cm; Wt 54.1 kg
[~2018-12-18 22:02] MED LIST changes: +oxyCODONE IR PO
[2018-12-18 22:06] VITALS: Ht 165.1 cm; Wt 54.1 kg
[2018-12-19 00:41] VITALS: BP 137/78
== END 2018-12-19 00:42 | disposition home or self-care (01) ==
LOC: D.ER 22:02
DX: S00.93XA Contusion of unspecified part of head, initial encounter (principal); S20.219A Contusion of unspecified front wall of thorax, initial encounter; W10.9XXA Fall (on) (from) unspecified stairs and steps, initial encounter; Y93.89 Activity, other specified; Y92.019 Unspecified place in single-family (private) house as the place of occurrence of the external cause; S16.1XXA Strain of muscle, fascia and tendon at neck level, initial encounter

== ENCOUNTER → 2018-12-21 15:55 | Outpatient (CLI) | payer MEDICARE ==
[2018-12-18 22:06] VITALS: BMI 19.8
== END | disposition home or self-care (01) ==
LOC: D.CT 13:00
PROVIDERS: ATTEND Surgery
DX: I99.8 Other disorder of circulatory system (principal)

== ENCOUNTER 2019-05-12 19:51 | Inpatient (IN) | payer MEDICARE ==
[~2019-05-12] VITALS: Ht 165.1 cm; Wt 76.4 kg
[2019-05-12 20:48] LABS: BASOPHILS 1.1 % (0-2); EOSINOPHILS 2.1 % (0-7); IMMATURE GRANULOCYTES 0.1 % (0-5); LYMPHOCYTES 22.4 % (15-50); MCH 21.8 pg (26.0-34.0); MCHC 29.1 g/dL (31.0-37.0); MCV 75.1 fL (80.0-100.0); MEAN PLATELET VOLUME 9.4 fL (7.4-10.4); MONOCYTES 18.9 % (2-11); NEUTROPHILS 55.4 % (40-80); RBC 2.29 10x6/uL (4.20-6.10)
[2019-05-12 21:02] LABS: ALBUMIN 2.8 g/dL (3.4-5.0); ALKALINE PHOSPHATASE 114 U/L (46-116); BILIRUBIN - TOTAL 0.31 mg/dL (0.2-1.3); CALC OSMOLALITY 249 mosm/kg (275-300); CALCIUM 7.9 mg/dL (8.5-10.1); CARBON DIOXIDE 25.2 mmol/L (21.0-32.0); CHLORIDE - SERUM 92 mmol/L (98-107); CREATININE - SERUM 0.7 mg/dL (0.6-1.3); GLUCOSE 99 mg/dL (74-106); POTASSIUM - SERUM 3.8 mmol/L (3.5-5.1); PROTEIN - SERUM 7.3 g/dL (6.4-8.2); SODIUM 126 mmol/L (136-145); UREA NITROGEN 4 mg/dL (7-18); eGFR NON AFRICAN AMERICAN > 90 mL/min (90-120)
[2019-05-12 21:13] LABS: HEMATOCRIT 17.2 % (42.0-54.0); PLATELET COUNT 455 10x3/uL (130-400)
[2019-05-12 21:14] LABS: ALT (SGPT) 10 U/L (10-68)
[2019-05-12 21:47] LABS: MAGNESIUM - SERUM 1.7 mg/dL (1.8-2.4)
[2019-05-12 22:03] LABS: APTT 35.9 SECONDS (22.8-39.4); INR 1.32 (0.85-1.17); PROTIME 15.9 SECONDS (11.6-15.0)
--- NOTE | 2019-05-12 23:03 | NUR ---
TRIED TO CALL REPORT. NURSE HAD TO BE CALLED IN AND HAS NOT ARRIVED YET.
[2019-05-13] VITALS (13 sets, daily range): BP systolic 130–175; BP diastolic 76–112; Ht 165.1 cm; Wt 76.4 kg
--- NOTE | 2019-05-13 00:30 | NUR ---
PT ARRIVED ON UNIT VIA BED AND ER STAFF. AOX4, FOLLOWS ALL COMMNANDS. UNLABORED RESPIRATIONS, SPO2 99 ON ROOM AIR. NSR ON MONITOR. BOWEL SOUNDS ACTIVE IN ALL QUADRANTS, NO ABD TENDERNESS. URINAL AT BEDSIDE. R AKA. LT FOOT WITH WOUNDS TO HEEL, SWELLING, DISCOLORATION, AND TENDERNESS. LT HEEL BRIDGED. CALL LIGHT AND BEDSIDE TABLE WITHIN PT REACH. CPOC.
--- NOTE | 2019-05-13 01:00 | NUR ---
VARGAS FREDERICK APN AT BEDSIDE.
--- NOTE | 2019-05-13 04:17 | NUR ---
REASSESSMENT COMPLETE, SEE FLOWSHEET FOR ALL FINDINGS. PT REPOSITIONED WITH PROMINENCES BRIDGED AND PARTIAL LINEN ABBEYNE PROVIDED. HEEL PROTECTOR IN PLACE. CALL LIGHT WITHIN PT REACH. CPOC.
[2019-05-13 06:23] LABS: BASOPHILS 0.5 % (0-2); EOSINOPHILS 0.8 % (0-7); IMMATURE GRANULOCYTES 0.4 % (0-5); LYMPHOCYTES 15.6 % (15-50); MCH 24.3 pg (26.0-34.0); MCHC 31.4 g/dL (31.0-37.0); MEAN PLATELET VOLUME 9.5 fL (7.4-10.4); MONOCYTES 17.3 % (2-11); NEUTROPHILS 65.4 % (40-80); PLATELET COUNT 374 10x3/uL (130-400); RDW 18.9 % (11.5-14.5); WBC 8.5 10x3/uL (4.8-10.8)
[2019-05-13 06:25] LABS: HEMATOCRIT 25.8 % (42.0-54.0); HEMOGLOBIN 8.1 g/dL (13.5-17.5); MCV 77.5 fL (80.0-100.0); RBC 3.33 10x6/uL (4.20-6.10)
[2019-05-13 06:49] LABS: ALBUMIN 2.7 g/dL (3.4-5.0); ALKALINE PHOSPHATASE 109 U/L (46-116); ALT (SGPT) 11 U/L (10-68); BILIRUBIN - TOTAL 2.13 mg/dL (0.2-1.3); CALC OSMOLALITY 262 mosm/kg (275-300); CALCIUM 7.7 mg/dL (8.5-10.1); CARBON DIOXIDE 23.2 mmol/L (21.0-32.0); CHLORIDE - SERUM 100 mmol/L (98-107); CREATININE - SERUM 0.7 mg/dL (0.6-1.3); GLUCOSE 97 mg/dL (74-106); MAGNESIUM - SERUM 1.5 mg/dL (1.8-2.4); PHOSPHOROUS 3.1 mg/dL (2.5-4.9); POTASSIUM - SERUM 3.7 mmol/L (3.5-5.1); PROTEIN - SERUM 7.4 g/dL (6.4-8.2); SODIUM 132 mmol/L (136-145); UREA NITROGEN 6 mg/dL (7-18); eGFR NON AFRICAN AMERICAN > 90 mL/min (90-120)
--- NOTE | 2019-05-13 07:05 | NUR ---
REPORT RECIEVED, SHIFT ASSESSMENT COMPLETE, PT IS ALERT AND ORIENTED, ON RA WITH 97% O2 SAT. ALL PPP, VSS, CALL LIGHT IN REACH
--- NOTE | 2019-05-13 09:05 | NUR ---
FAMILY AT BEDSIDE, UPDATE GIVEN
--- NOTE | 2019-05-13 11:00 | NUR ---
NO NEEDS NOTED AT THIS TIME, WILL CON'T TO MONITOR
[2019-05-13 12:06] LABS: HEMATOCRIT 26.3 % (42.0-54.0); HEMOGLOBIN 8.2 g/dL (13.5-17.5)
--- NOTE | 2019-05-13 13:00 | NUR ---
DR. RIDDLE AT BEDSIDE, EGD PERFORMED, PT TOLERATED WELL
--- NOTE | 2019-05-13 13:30 | NUR ---
PT UPTO BSC LG BM NOTED
--- NOTE | 2019-05-13 14:46 | NUR ---
PT ARRIVES TO ROOM FROM ICU VIA WHEELCHAIR. PT IS AAO X 4. VSS. SEE FLOWSHEET. LEFT FOOT INFLAMMED AND RED. PT REPORTS TENDERNESS WITH PALPATION. PULSE WEAK/FAIT TO LEFT FOOT. CAP REFILL TO LEFT TOES ARE <3. PT REPORTS THAT HE IS COLD. WILL PROVIDE BLANKETS FOR PT COMFORT. PT DENIES PRESENCE OF DYSPNEA/SOB/N/V AT THIS TIME. PIV TO RIGHT FA IS SL. PIV TO LEFT FA IS SL. BED IS IN THE LOWEST POSITION. CALL LIGHT AND BEDSIDE TABLE ARE WITHIN REACH. SIDE RAILS X 2. WILL NOTIFY SHIFT NURSE VALERIE MCKAY OF PT ARRIVAL AND ASSESSMENT AT THIS TIME.
--- NOTE | 2019-05-13 15:52 | NUR ---
RIGHT AKA ON 10/15/18. LEFT FOOT HAS MILD REDNESS AND DRY ESCHAR ON HEEL. AREA MEASURES 3.8CM X 5.3CM X 0.2CM. LEFT GREAT TOENAIL IS BLACK. DR. JEAN BAPTISTE IS SEEING PT AND HAS APPLIED PLUROGEL ON LEFT HEEL ESCHAR. HEEL PROTECTOR IS IN PLACE ON LEFT. WOUND CARE WILL MONITOR NEEDED.
[2019-05-13 18:25] LABS: HEMATOCRIT 24.7 % (42.0-54.0); HEMOGLOBIN 7.7 g/dL (13.5-17.5)
--- NOTE | 2019-05-13 19:15 | NUR ---
REPORT RECEIVED, WILL CONTINUE POC. PATIENT IS A/OX4, UP WITH ASSIST. PATIENT ASKED FOR URINAL, URINAL PROVIDED. NO S/S OF DISTRESS NOTED, RR EVEN AND UNLABORED ON ROOM AIR. IV TO LT FOREARM INFUSING NS @125ML/HR AND PROTONIX @ 10ML/HR. IV TO RT FA, SL, PATENT, DRSG C/D/I. PATIENT DENIES FURTHER NEEDS AT THIS TIME. CL IN REACH, BED LOCKED AND LOWERED. WILL CTM.
--- NOTE | 2019-05-13 23:50 | NUR ---
PATIENT SELF TRANSFERED TO [facility], HAD LG BM. STOOL SAMPLE COLLECTED FOR OCCULT. PATIENT BACK IN BED. CL IN REACH, BED LOCKED AND LOWERED. WILL CTM.
[2019-05-14 00:37] VITALS: BP 147/86
[2019-05-14 00:42] LABS: HEMATOCRIT 25.8 % (42.0-54.0)
[2019-05-14 04:25] VITALS: BP 148/81
[2019-05-14 06:08] LABS: BASOPHILS 0.5 % (0-2); EOSINOPHILS 1.5 % (0-7); HEMATOCRIT 24.7 % (42.0-54.0); HEMOGLOBIN 7.6 g/dL (13.5-17.5); IMMATURE GRANULOCYTES 0.3 % (0-5); LYMPHOCYTES 15.8 % (15-50); MCHC 30.8 g/dL (31.0-37.0); MCV 77.9 fL (80.0-100.0); MEAN PLATELET VOLUME 9.3 fL (7.4-10.4); MONOCYTES 15.9 % (2-11); PLATELET COUNT 344 10x3/uL (130-400); RBC 3.17 10x6/uL (4.20-6.10); RDW 19.3 % (11.5-14.5); WBC 7.4 10x3/uL (4.8-10.8)
[2019-05-14 06:41] LABS: CALCIUM 7.5 mg/dL (8.5-10.1); CARBON DIOXIDE 22.5 mmol/L (21.0-32.0); CHLORIDE - SERUM 103 mmol/L (98-107); CREATININE - SERUM 0.7 mg/dL (0.6-1.3); GLUCOSE 119 mg/dL (74-106); MAGNESIUM - SERUM 1.5 mg/dL (1.8-2.4); PHOSPHOROUS 2.6 mg/dL (2.5-4.9); SODIUM 138 mmol/L (136-145); eGFR NON AFRICAN AMERICAN > 90 mL/min (90-120)
[2019-05-14 06:44] LABS: CALC OSMOLALITY 273 mosm/kg (275-300); POTASSIUM - SERUM 3.1 mmol/L (3.5-5.1); UREA NITROGEN 4 mg/dL (7-18)
--- NOTE | 2019-05-14 07:59 | NUR ---
PT SITTING UP. RR EVEN AND UNLABORED. DENIES PAIN AT THIS TIME. ASSISTEDE WITH FILLING OUT LUNCH/DINNER MENU. WILL CONTINUE TO MONITOR.
--- NOTE | 2019-05-14 09:31 | MORECARE ---
CASE MANAGEMENT DISCHARGE SUMMARY PATIENT: TONIA MCCARTNEY UNIT: [id number] ADM DATE: 05/12/19 AGE: 58 : 60 SEX: M ROOM/BED: D.1207 AUTHOR: JACI KELLY PHYSICIAN: REFERRING PHYSICIAN: CL LOUISE MD DATE OF SERVICE: 05/14/19 Discharge Plan Patient Name: TONIA MCCARTNEY [facility] [facility] 1960 Planned Disposition: Home Anticipated Discharge Date: Discharge Date: Expected LOS: Initial Reviewer: [email or web address] Initial Review Date: 05/14/2019 Generated: 05/14/19 10:31 am Comments DCP- Discharge Planning Updated by [email or web address]: Kenya Alexis on 05/13/19 4:[address] CM attempted to see patient but he was in the restroom. CM will come back at a later time. CM will continue to follow and assist as needed with discharge planning/ needs. DCPIA - Discharge Planning Initial Assessment Updated by [id number]: Maria Del Carmen Peters on 05/14/19 9:31 am * Is the patient Alert and Oriented? Yes * PCP SANG * Pharmacy [facility] [place] * Preadmission Environment Home with Family * ADLs Independent * Other Equipment CANE,WALKER,WHEEL CHAIR * Community resources currently utilized None * Additional services required to return to the preadmission environment? Yes * Can the patient safely return to the preadmission environment? No * Has this patient been hospitalized within the prior 30 days at any hospital? No Patient Name: TONIA MCCARTNEY Page [phone] at 0931 All edits/amendments must be made on the electronic document DICTATION DATE: 05/14/19930 CAPACITOR TESTER: ALVARADO 05/14/19930 RPT#: [id number] DC DATE: STATUS: ADM IN [facility] [address] [place] [address] END OF REPORT
--- NOTE | 2019-05-14 09:40 | MORECARE ---
CASE MANAGEMENT DISCHARGE SUMMARY PATIENT: TONIA MCCARTNEY UNIT: [id number] ADM DATE: 05/12/19 AGE: 58 : 60 SEX: M ROOM/BED: D.1207 AUTHOR: ROBIN,DOC PHYSICIAN: REFERRING PHYSICIAN: CL LOUISE MD DATE OF SERVICE: 05/14/19 Discharge Plan Patient Name: TONIA MCCARTNEY Facility: [facility]:[place] : 1960 Planned Disposition: Home Anticipated Discharge Date: Discharge Date: Expected LOS: Initial Reviewer: [email or web address] Initial Review Date: 05/14/2019 Generated: 05/14/19 10:40 am Comments DCP- Discharge Planning Updated by [email or web address]: Maria Del Carmen Peters on 05/14/19 8:[address] Patient Name: TONIA MCCARTNEY Admission Status: ER Accout number: [id number] Admission Date: 05-12-2019 : 1960 Admission Diagnosis: Attending: CL LOUISE Current LOS: 2 Anticipated DC Date: Planned Disposition: Home Primary Insurance: MEDICARE A & B Discharge Planning Comments: CM MET WITH PATIENT AFTER OBTAINING VERBAL CONSENT. STATES PLANS TO DISCHARGE TO HOME WITH VICKI. DISCUSSED NEED FOR HH, REHAB OR EQUIPMENT, PATIENT UNSURE OF NEEDS AT THIS TIME. STATES A HH ANGENCY WAS COMING TO HIS HOME AND JUST STOPPED WITHOUT NOTICE. HE DOESN'T REMEMBER THE NAME OF THE COMPANY. CM WILL FOLLOW AND ASSIST NEEDED. Hansard Reporter: Maria Del Carmen Peters DCP- Discharge Planning Updated by [id number]: Kenya Alexis on 05/13/19 4:[address] CM attempted to see patient but he was in the restroom. CM will come back at a later time. CM will continue to follow and assist as needed with discharge planning/ needs. DCPIA - Discharge Planning Initial Assessment Updated by [email or web address]: Maria Del Carmen Peters on 05/14/19 9:31 am * Is the patient Alert and Oriented? Yes * PCP SANG * Pharmacy [facility] [place] * Preadmission Environment Home with Family * ADLs Independent * Other Equipment CANE,WALKER,WHEEL CHAIR * Community resources currently utilized None * Additional services required to return to the preadmission environment? Yes * Can the patient safely return to the preadmission environment? No * Has this patient been hospitalized within the prior 30 days at any hospital? No Last DP export: 05/14/19 8:31 Patient Name: TONIA MCCARTNEY Page [phone] at 0940 All edits/amendments must be made on the electronic document DICTATION DATE: 05/14/19939 HEARING AID SPECIALIST: ALVARADO 05/14/19939 RPT#: [id number] DC DATE: STATUS: ADM IN [facility] [address] [place] [address] END OF REPORT
[2019-05-14 09:52] VITALS: BP 184/83
[2019-05-14 10:20] LABS: % SATURATION 7 % (15-55); IRON 22 ug/dl (35-150); TOTAL IRON BIND CAPACITY 309 ug/dl (260-445); UNSAT IRON BIND CAPACITY 287 ug/dl (150-375)
--- NOTE | 2019-05-14 12:09 | NUR ---
I have reviewed this patient and I concur with the Shift Assessment completed by the Licensed Practical Nurse today this shift.
--- NOTE | 2019-05-14 19:30 | NUR ---
PATIENT SITTING UP IN BED. ALERT AND ORIENTED X 4. L FA IV WITH NS@ 125. R FA IV WITH IRON RUNNING. ENCOURAGED PATIENT TO CALL WITH ANY NEEDS. CALL LIGHT WITHIN REACH.
[2019-05-14 19:43] VITALS: BP 149/82
[2019-05-15] VITALS (8 sets, daily range): BP systolic 136–161; BP diastolic 67–98
[2019-05-15 07:15] LABS: BASOPHILS 0.6 % (0-2); EOSINOPHILS 2.3 % (0-7); HEMATOCRIT 24.6 % (42.0-54.0); IMMATURE GRANULOCYTES 0.5 % (0-5); LYMPHOCYTES 15.1 % (15-50); MCH 23.8 pg (26.0-34.0); MCHC 30.1 g/dL (31.0-37.0); MCV 79.1 fL (80.0-100.0); MONOCYTES 15.6 % (2-11); NEUTROPHILS 65.9 % (40-80); PLATELET COUNT 367 10x3/uL (130-400); RBC 3.11 10x6/uL (4.20-6.10); RDW 20.1 % (11.5-14.5); WBC 7.9 10x3/uL (4.8-10.8)
[2019-05-15 07:27] LABS: CALC OSMOLALITY 264 mosm/kg (275-300); CALCIUM 7.5 mg/dL (8.5-10.1); CARBON DIOXIDE 21.6 mmol/L (21.0-32.0); CHLORIDE - SERUM 102 mmol/L (98-107); CREATININE - SERUM 0.6 mg/dL (0.6-1.3); GLUCOSE 94 mg/dL (74-106); MAGNESIUM - SERUM 1.7 mg/dL (1.8-2.4); SODIUM 134 mmol/L (136-145); UREA NITROGEN 3 mg/dL (7-18); eGFR NON AFRICAN AMERICAN > 90 mL/min (90-120)
[2019-05-15 07:52] LABS: HEMOGLOBIN 7.4 g/dL (13.5-17.5)
--- NOTE | 2019-05-15 07:52 | NUR ---
ALERT AND ORIENTED. NO C/O PAIN. RESP EVEN AND UNLABORED. CL IN REACH.
[2019-05-15 12:39] LABS: POTASSIUM - SERUM 3.3 mmol/L (3.5-5.1)
[2019-05-15 12:40] LABS: MAGNESIUM - SERUM 2.5 mg/dL (1.8-2.4)
--- NOTE | 2019-05-15 12:50 | NUR ---
VSS. GETTING 1 UNIT PRBC'S AT THIS TIME. NO DIFFICULTY.
--- NOTE | 2019-05-15 13:27 | NUR ---
DRESSING CHANGED WITH BETADINE PER NEETA ANDRADE
--- NOTE | 2019-05-15 16:18 | NUR ---
N0 CHANGE IN ASSESSMENT, BLOOD TRANFUSION COMPLETED. FAMILY AT BS.
--- NOTE | 2019-05-15 17:07 | NUR ---
SL ON R ARM HURTING. DC'D WITH CATH INTACT. REFUSES TO HAVE ANOTHER SL PLACED AT THIS TIME. HE WAS GETTING PROTONIX AT 10CC/HR AT THAT SITE. HE STILL HAS ANOTHER IV ON L ARM WITH NS. GETS PIGGY BACKS ALSO ON THAT SITE. HE SAID HE WAS PROBABLY GOING HOME TOMORROW AND DOSEN'T WANT ANOTHER IV SITED.
--- NOTE | 2019-05-15 19:36 | NUR ---
PATIENT RESTING IN BED AND DENIES NEEDS AT THIS TIME. VSS. BED IN LOWEST POSITION AND CALL LIGHT WITHIN REACH. ENCOURAGED THE PATIENT TO CALL. WILL CONTINUE TO MONITOR.
--- NOTE | 2019-05-15 21:19 | NUR ---
PATIENT RESTING IN BED WITH NO S/S OF DISTRESS. ADMINISTERED MEDS PER ORDERS. DRESSING TO PATIENT'S FOOT IS FALLING OFF. CHANGED DRESSING PER ORDERS. PATIENT DENIES OTHER NEEDS AT THIS TIME. BED IN LOWEST POSITION AND CALL LIGHT WITHIN REACH. ENCOURAGED THE PATIENT TO CALL IF HE HAS OTHER NEEDS.
[2019-05-16 04:40] VITALS: BP 165/98
[2019-05-16 07:17] VITALS: BP 176/106
[2019-05-16 07:20] LABS: BASOPHILS 0.5 % (0-2); EOSINOPHILS 2.8 % (0-7); HEMATOCRIT 29.3 % (42.0-54.0); IMMATURE GRANULOCYTES 0.4 % (0-5); LYMPHOCYTES 15.3 % (15-50); MCH 25.1 pg (26.0-34.0); MCHC 30.7 g/dL (31.0-37.0); MEAN PLATELET VOLUME 9.7 fL (7.4-10.4); MONOCYTES 16.9 % (2-11); NEUTROPHILS 64.1 % (40-80); PLATELET COUNT 352 10x3/uL (130-400); RBC 3.58 10x6/uL (4.20-6.10); WBC 8.1 10x3/uL (4.8-10.8)
[2019-05-16 07:21] LABS: MCV 81.8 fL (80.0-100.0)
--- NOTE | 2019-05-16 07:23 | NUR ---
PT AWAKE AND ORIENTED SITTING ON SIDE OF BED. STATES HE'S IN A GOOD MOOD AND FEELS BETTER OVERALL. NO COMPLAINTS/CONCERNS, ALL QUESTIONS ASNWERED TO LITTLE BEST OF MY ABILITY. CL IN REACH, SRX2, NO FAMILY AT BEDSIDE.
[2019-05-16 07:50] LABS: CALC OSMOLALITY 262 mosm/kg (275-300); CALCIUM 8.3 mg/dL (8.5-10.1); CHLORIDE - SERUM 103 mmol/L (98-107); CREATININE - SERUM 0.6 mg/dL (0.6-1.3); GLUCOSE 95 mg/dL (74-106); MAGNESIUM - SERUM 1.9 mg/dL (1.8-2.4); POTASSIUM - SERUM 4.2 mmol/L (3.5-5.1); SODIUM 133 mmol/L (136-145); UREA NITROGEN 4 mg/dL (7-18); eGFR NON AFRICAN AMERICAN > 90 mL/min (90-120)
--- NOTE | 2019-05-16 11:12 | NUR ---
I have reviewed this patient and I concur with the Shift Assessment completed by the Licensed Practical Nurse today this shift.
--- NOTE | 2019-05-16 14:06 | MORECARE ---
CASE MANAGEMENT DISCHARGE SUMMARY PATIENT: TONIA MCCARTNEY UNIT: [id number] ADM DATE: 05/12/19 AGE: 58 : 60 SEX: M ROOM/BED: D.1207 AUTHOR: ROBIN,DOC PHYSICIAN: REFERRING PHYSICIAN: CL LOUISE MD DATE OF SERVICE: 05/16/19 Discharge Plan Patient Name: TONIA MCCARTNEY Facility: [facility]:[place] : 1960 Planned Disposition: Home Anticipated Discharge Date: Discharge Date: Expected LOS: Initial Reviewer: [email or web address] Initial Review Date: 05/14/2019 Generated: 05/16/19 3:06 pm Comments DCP- Discharge Planning Updated by [email or web address]: Jamila Fink on 05/16/19 1:[address] DC Order and home health order received. CM met with patient to discuss HH order. WEI discussed. He stated he used [facility] in the past but was not happy with their services. He requested I call his niece. CM spoke to Camila who agreed they wanted a different agency. WEI discussed with her and she and patient agreed to [facility]. WEI form presented, explained, and signed by the patient for [facility]. CM notified Jose of the Referral. Patient will need daily wound care and Camila reports her will be at home and will assist in the wound care that is needed. Referral faxed to [facility] to have his examination grader nurse call cm. Patient and Camila denied further dc needs at this time. She will transport him home and will be here to hospital soon. Jamila Fink RN, [facility] DCP- Discharge Planning Updated by [email or web address]: Maria Del Carmen Peters on 05/14/19 8:[address] Patient Name: TONIA MCCARTNEY Admission Status: ER Accout number: [id number] Admission Date: 05-12-2019 : 1960 Admission Diagnosis: Attending: CL LOUISE Current LOS: 2 Anticipated DC Date: Planned Disposition: Home Primary Insurance: MEDICARE A & B Discharge Planning Comments: CM MET WITH PATIENT AFTER OBTAINING VERBAL CONSENT. STATES PLANS TO DISCHARGE TO HOME WITH NEICE. DISCUSSED NEED FOR HH, REHAB OR EQUIPMENT, PATIENT UNSURE OF NEEDS AT THIS TIME. STATES A HH ANGENCY WAS COMING TO HIS HOME AND JUST STOPPED WITHOUT NOTICE. HE DOESN'T REMEMBER THE NAME OF THE COMPANY. CM WILL FOLLOW AND ASSIST NEEDED. Boat Patcher Plastic: Maria Del Carmen Peters DCP- Discharge Planning Updated by [email or web address]: Kenya Alexis on 05/13/19 4:[address] CM attempted to see patient but he was in the restroom. CM will come back at a later time. CM will continue to follow and assist as needed with discharge planning/ needs. DCPIA - Discharge Planning Initial Assessment Updated by [email or web address]: Maria Del Carmen Peters on 05/14/19 9:31 am * Is the patient Alert and Oriented? Yes * PCP SANG * [facility] [place] * Preadmission Environment Home with Family * ADLs Independent * Other Equipment CANE,WALKER,WHEEL CHAIR * Community resources currently utilized None * Additional services required to return to the preadmission environment? Yes * Can the patient safely return to the preadmission environment? No * Has this patient been hospitalized within the prior 30 days at any hospital? No Coverage Notice Reviewer: [email or web address] - Maria Del Carmen Peters Notice Issued Date-Time: 05/14/2019 16:29 Notice Type: IM Discharge Notice Notice Delivered To: Patient Relationship to Patient: Parent Trainer Name: Delivery Method: HAND - Hand Delivered Margi Days: Prior Verbal Notification: Recipient Understood Notice: Yes Recipient Signature: Yes Med Rec Note Co-signed by Attending: Coverage Notice Comment: Reviewer: [email or web address] Natasha Fink Notice Issued Date-Time: 05/16/2019 14:02 Notice Type: Patient Choice Letter Notice Delivered To: Patient Relationship to Patient: Parent Trainer Name: Delivery Method: HAND - Hand Delivered Margi Days: Prior Verbal Notification: Recipient Understood Notice: Recipient Signature: Med Rec Note Co-signed by Attending: Coverage Notice Comment: Patient and niece chose [employer]. Last DP export: 05/14/19 8:40 Patient Name: TONIA MCCARTNEY Page [id number] at 1406 All edits/amendments must be made on the electronic document DICTATION DATE: 05/16/19 1406 BABBITT SPINNER: ALVARADO 05/16/19 1406 RPT#: [id number] DC DATE: STATUS: ADM IN [facility] [address] [place] [address] END OF REPORT
--- NOTE | 2019-05-16 14:29 | MORECARE ---
CASE MANAGEMENT DISCHARGE SUMMARY PATIENT: TONIA MCCARTNEY UNIT: [id number] ADM DATE: 05/12/19 AGE: 58 : 60 SEX: M ROOM/BED: D.1207 AUTHOR: ROBIN,DOC PHYSICIAN: REFERRING PHYSICIAN: CL LOUISE MD DATE OF SERVICE: 05/16/19 Discharge Plan Patient Name: TONIA MCCARTNEY Facility: [facility]:[place] : 1960 Planned Disposition: Home Anticipated Discharge Date: Discharge Date: Expected LOS: Initial Reviewer: [id number] Initial Review Date: 05/14/2019 Generated: 05/16/19 3:29 pm Comments DCP- Discharge Planning Updated by [email or web address]: Jamila Fink on 05/16/19 1:[address] Patient discharging home today with [employer] [facility] for wound care. CM faxed referral to [facility], spoke to station installer nurse Jennifer regarding the referral. Jennifer stated they would see the patient tomorrow. Jamila Fink RN, [facility] DCP- Discharge Planning Updated by [email or web address]: Jamila Fink on 05/16/19 1:[address] DC Order and home health order received. TESSA met with patient to discuss HH order. WEI discussed. He stated he used [facility] in the past but was not happy with their services. He requested I call his niece. TESSA spoke to Camila who agreed they wanted a different agency. WEI discussed with her and she and patient agreed to [facility] services. WEI form presented, explained, and signed by the patient for [employer] [facility]. TESSA notified Jose of the Referral. Patient will need daily wound care and Camila reports her will be at home and will assist in the wound care that is needed. Referral faxed to [facility] [facility] to have his station installer nurse call cm. Patient and Camila denied further dc needs at this time. She will transport him home and will be here to hospital soon. Jamila Fink RN, [facility] DCP- Discharge Planning Updated by [id number]: Maria Del Carmen Peters on 05/14/19 8:[address] Patient Name: TONIA MCCARTNEY Admission Status: ER Accout number: [id number] Admission Date: 05-12-2019 : 1960 Admission Diagnosis: Attending: CL LOUISE Current LOS: 2 Anticipated DC Date: Planned Disposition: Home Primary Insurance: MEDICARE A & B Discharge Planning Comments: CM MET WITH PATIENT AFTER OBTAINING VERBAL CONSENT. STATES PLANS TO DISCHARGE TO HOME WITH [facility]. DISCUSSED NEED FOR HH, REHAB OR EQUIPMENT, PATIENT UNSURE OF NEEDS AT THIS TIME. STATES A HH ANGENCY WAS COMING TO HIS HOME AND JUST STOPPED WITHOUT NOTICE. HE DOESN'T REMEMBER THE NAME OF THE COMPANY. CM WILL FOLLOW AND ASSIST NEEDED. Lead Developer: Maria Del Carmen Peters DCP- Discharge Planning Updated by [email or web address]: Kenya Alexis on 05/13/19 4:[address] CM attempted to see patient but he was in the restroom. CM will come back at a later time. CM will continue to follow and assist as needed with discharge planning/ needs. DCPIA - Discharge Planning Initial Assessment Updated by [email or web address]: Maria Del Carmen Peters on 05/14/19 9:31 am * Is the patient Alert and Oriented? Yes * PCP SANG * [facility] [place] * Preadmission Environment Home with Family * ADLs Independent * Other Equipment CANE,WALKER,WHEEL CHAIR * Community resources currently utilized None * Additional services required to return to the preadmission environment? Yes * Can the patient safely return to the preadmission environment? No * Has this patient been hospitalized within the prior 30 days at any hospital? No External [facility]iders [facility] Next Contact Date: Service Request Date: Service Type: Resolution: Reviewer: Comments: Coverage Notice Reviewer: [id number] - Maria Del Carmen Peters Notice Issued Date-Time: 05/14/2019 16:29 Notice Type: IM Discharge Notice Notice Delivered To: Patient Relationship to Patient: Technical Operations Specialist Name: Delivery Method: HAND - Hand Delivered Margi Days: Prior Verbal Notification: Recipient Understood Notice: Yes Recipient Signature: Yes Med Rec Note Co-signed by Attending: Coverage Notice Comment: Reviewer: [id number] - Jamila Fink Notice Issued Date-Time: 05/16/2019 14:02 Notice Type: Patient Choice Letter Notice Delivered To: Patient Relationship to Patient: Technical Operations Specialist Name: Delivery Method: HAND - Hand Delivered Margi Days: Prior Verbal Notification: Recipient Understood Notice: Recipient Signature: Med Rec Note Co-signed by Attending: Coverage Notice Comment: Patient and niece chose [email or web address]. Last DP export: 05/16/19 1:06 Patient Name: TONIA MCCARTNEY Page [phone] at 1429 All edits/amendments must be made on the electronic document DICTATION DATE: 05/16/191428 VALUER: ALVARADO 05/16/191428 RPT#: [id number] DC DATE: STATUS: ADM IN [facility] [address] [place] [address] END OF REPORT
--- NOTE | 2019-05-16 15:43 | NUR ---
PT ESCORTED OUT VIA WHEELCHAIR TO [facility].
== END 2019-05-16 15:43 | disposition home health service (06) | DRG 378 ==
LOC: D.ER 19:51 → D.ICU 21:56 → D.M3 21:56
PROVIDERS: Family Medicine; Internal Medicine Gastroenterology; ADMIT Internal Medicine Nephrology; ATTEND Internal Medicine Nephrology
PROC: 0DJ08ZZ Inspection of Upper Intestinal Tract, Via Natural or Artificial Opening Endoscopic (ICD-10-PCS; principal; 2019-05-13 12:33)
DX: K29.71 Gastritis, unspecified, with bleeding (principal); D62 Acute posthemorrhagic anemia; E87.1 Hypo-osmolality and hyponatremia; M86.8X7 Other osteomyelitis, ankle and foot; F17.213 Nicotine dependence, cigarettes, with withdrawal; I96 Gangrene, not elsewhere classified; K55.21 Angiodysplasia of colon with hemorrhage; K21.9 Gastro-esophageal reflux disease without esophagitis; Z89.611 Acquired absence of right leg above knee; I10 Essential (primary) hypertension; K21.0 Gastro-esophageal reflux disease with esophagitis; F10.10 Alcohol abuse, uncomplicated